=== PATIENT | female | born 1925 | race Caucasian/White ===

== ENCOUNTER 2016-04-30 10:45 | Inpatient (IN) | payer MEDICARE, MEDICAID ==
[~2016-04-30] VITALS: Ht 158.8 cm; Wt 104.1 kg
[2016-04-30] VITALS (15 sets, daily range): BP systolic 128–164; BP diastolic 46–77
[~2016-04-30 10:45] MED LIST: ALBU17AE3; ALBU8.5H2 IH; ALPR.25T PO; ALPR.5T PO; AMLO10TA82 PO; ASP81TEC PO; CARB15DR75 OU; CEPH500C PO; CITA20TA4 PO; CLOT15CR4 TP; DOXA1TAB PO; DXCC100C PO; ENLP10T PO; ESCT10T PO; FISH1CAP15 PO; FLC100T1 PO; FLUT1DIS26 IH; FRSM40T PO; HYDR118S10 PO; LEVO500T69 PO; MESA1.2T PO; MTP25TSR PO; MULT-963 PO; NF-ESOM40C PO; NFPRILOC40 PO; NITR-65 PO; NST15PW TOP; OMEG1CAP51 PO; OMEP40CA36 PO; ONDA-42 SL; OXYC-272 PO; PHEN200T27 PO; PNT40TEC PO; POLY17PO23 PO; POTA10TA6 PO; PROCRIT SC; RT-ALBUINH IH; SCR1T1 PO; SIMV40TA2 PO; SNN187T PO; SULF1TAB23 PO; SULF1TAB38 PO; TRAZODONE PO; TRM50T PO; TRZ50T PO; WARF4TAB PO; WRF2T PO; WRF5T PO
--- OUTSIDE RECORDS SUMMARY | 2016-04-30 10:53 | XMS REPORT | Continuity of Care Document ---
Author Author [facility] Organization [facility] Address Unknown Phone Unavailable Care Team Providers Care Traffic Circuit Engineer Name Role Phone WILLARD LOPEZ DO PCP Insurance Providers Payer Name Policy Number Subscriber Name Relationship [employer] Medicare [id number] Be Bill 18 Self / Same As Patient [facility] [id number] Be Bill 18 Self / Same As Patient Advance Directives Directive Response Recorded Date/Time Advance Directives No 08/05/13 9:37am Health Care Power of Fishing Accessories Maker No 08/05/13 9:37am Organ Donor No 08/05/13 9:37am Problems No known problems or medical conditions. Medications Medication Dose Route Sig Days/Qty Instructions Order Date Discontinued Date Status Aspirin 81 Mg PO DAILY 11/07/09 10/22/10 Discontinued Furosemide 40 Mg PO DAILY 11/07/09 Active Amlodipine Besylate (Norvasc 10 Mg) 10 Mg PO DAILY 11/07/09 Discontinued Esomeprazole Magnesium 40 Mg PO DAILY 11/07/09 10/22/10 Discontinued Escitalopram Oxalate 10 Mg PO DAILY 11/07/09 09/01/10 Discontinued Potassium Chloride 10 Meq PO EVERY OTHER DAY 11/07/09 10/24/11 Discontinued Sinclair-3 Fatty Acids/Fish Oil 1,000 Mg PO DAILY 11/07/09 11/30/12 Discontinued Salmeterol Xinafoate/Fluticasone 1 Puff IH GIVE EVERY 12 HRS ON SCHEDULE 11/07/09 10/24/11 Discontinued Tramadol HCl 50 Mg PO THREE TIMES A DAY 11/07/09 01/14/13 Discontinued Alprazolam 0.5 Mg PO TWICE A DAY 11/07/09 01/04/13 Discontinued Trazodone HCl 50 Mg PO BEDTIME 11/07/09 09/01/10 Discontinued Nitrofurantoin Macrocrystals 1 Each PO TWICE A DAY 14 Qty 04/07/1011/05 Discontinued Phenazopyridine HCl 1 Each PO TID PRN 10 Qty 04/07/10 09/01/10 Discontinued Trazodone HCl 50 Mg PO HS PRN 09/01/10 10/22/10 Discontinued Carboxymethylcellulose Sodium 1 Drop OU NEEDED for dry eyes/burning 09/02/10 10/24/11 Discontinued Fluconazole 1 Each PO DAILY 14 Days 09/06/10 10/12/10 Discontinued Trimethoprim/Sulfamethoxazole 1 Ea PO TWICE A DAY 10 Days 09/06/1013/03 Discontinued Omeprazole 40 Mg PO DAILY 09/06/10 10/22/10 Discontinued Trimethoprim/Sulfamethoxazole 1 Ea PO TWICE A DAY 09/08/10 09/10/10 Discontinued Levofloxacin 1 Each PO DAILY 5 Qty 09/10/10 10/12/10 Discontinued Simvastatin 40 Mg PO BEDTIME 10/12/10 Active Escitalopram Oxalate 10 Mg PO DAILY 10/12/10 11/30/12 Discontinued Enalapril Maleate 10 Mg PO TWICE A DAY 10/22/10 10/24/11 Discontinued [Procrit] 14,[address] MIX'S OFFICE 10/22/10 01/04/11 Discontinued Metoprolol Succinate 1 Each PO DAILY 10/22/10 01/08/11 Discontinued Pantoprazole Sodium 1 Tab PO TWICE A DAY 10/22/10 01/04/11 Discontinued Mesalamine 1.2 Gm PO DAILY 10/22/10 01/04/11 Discontinued Albuterol 2 Puff THREE TIMES A DAY 1 Qty 10/22/10 10/24/11 Discontinued Omeprazole 40 Mg PO DAILY 01/04/11 10/24/11 Discontinued Amlodipine Besylate (Norvasc 10 Mg) 10 Mg PO DAILY 01/04/11 Active Sulfamethoxazole/Trimethoprim 1 Tab PO TWICE A DAY TWICE A DAY FOR 3 WEEKS 01/08/11 10/24/11 Discontinued [Trazodone] 50 Mg PO BEDTIME 10/24/11 01/04/13 Discontinued Hydrocodone Bit/Acetaminophen 1 Each PO NEEDED 06/30/12 01/04/13 Discontinued Doxazosin Mesylate 1 Mg PO TWICE A DAY 06/30/12 Active Warfarin Sodium 4 Mg PO DAILY@18 06/30/12 01/04/13 Discontinued Multivitamin 1 Tab PO 06/30/12 01/04/13 Discontinued Polyethylene Glycol 17 Gm PO DAILY PRN PRN CONSTIPATION 06/30/12 Active Senna 8.6 Mg PO TWICE A DAY 06/30/12 11/30/12 Discontinued Cephalexin Monohydrate (Keflex) 1 Each PO THREE TIMES A DAY 7 Days 09/0701/04/13 Discontinued Albuterol Sulfate 2 Puff IH THREE TIMES A DAY 01/04/13 01/04/13 Discontinued Fish Oil/Dha/Epa 1,200 Mg PO DAILY 01/04/13 Active Albuterol 2 Puff IH THREE TIMES A DAY 01/04/13 Active Clotrimazole/Betamet Diprop TP TWICE A DAY PRN APPLY TO AFFECTED AREA( S) TWICE DAILY 01/04/13 Active Nystatin 0 TOP THREE TIMES A DAY 01/04/13 Active Omeprazole 40 Mg PO DAILY 01/04/13 Active Alprazolam 0.25 Mg PO TWICE A DAY PRN NEEDED FOR TREMORS 01/04/13 Active Warfarin Sodium PO DIRECTED 01/04/13 01/14/13 Discontinued Trazodone HCl 50 Mg PO BEDTIME 01/04/13 Active Citalopram Hydrobromide 20 Mg PO DAILY 01/04/13 Active Doxycycline Hyclate 100 Mg PO TWICE A DAY 10 Qty 01/14/13 Active Warfarin Sodium 1 Each PO DAILY 5 MG PO DAILY AT 1800. 01/14/13 Active Oxycodone Hcl/Acetaminophen 1 Tab PO EVERY 8HRS PRN 40 Qty 01/14/13 Active Ondansetron Hcl 4 Mg SL EVERY 4HRS 5 Qty 08/05/13 Active Nitrofurantoin Macrocrystals 1 Each PO TWICE A DAY 20 Qty FOR INFECTION 08/05/13 Active Social History Social History Problem Response Recorded Date/Time Alcohol Use Denies Use 08/05/2013 9:37am Recreational Drug Use No 08/05/2013 9:37am Recent Foreign Travel No 08/05/2013 9:37am Recent Infectious Disease Exposure No 08/05/2013 9:37am Sexually Transmitted Disease No 08/05/2013 9:37am Hospital Discharge Instructions No hospital discharge instructions. Plan of Care No plan of care. Functional Status No functional status results. Allergies, Adverse Reactions, Alerts Allergen Type Severity Reaction Status Last Updated No Known Drug Allergies Active 04/07/10 Immunizations Name Given Type Date of Pneumonia Vaccine 12/28/07 Historical Date of Influenza Vaccine 12/28/11 Historical Vital Signs No known vital signs results. Results Test Source Date Result Interp. Ref. Range Comments Absolute Reticulocyte Count October 18, 2010 5:36am 51 10^3/uL N 22-82 PATHOLOGY REVIEW OF THE PERIPHERAL SMEAR HAS BEEN ORDERED BYTHE PATIENT'S PHYSICIAN. PLEASE TAKE THE CBC, MANUAL DIFF, RETIC RESULTS, SMEAR AND ANY PERTINENT HISTORY TO THE PATHOLOGIST FOR REVIEW. Activated Partial Thromboplast Time August 05, 2013 10:10am 34 SEC N 24- 35 Alanine Aminotransferase (ALT/SGPT) October 08, 2013 9:44am 21 U/L L 30-65 Albumin October 08, 2013 9:44am 3.2 G/DL L 3.4-5.0 Alkaline Phosphatase October 08, 2013 9:44am 96 U/L N 50-136 Amylase Level August 05, 2013 10:10am 62 U/L N 25-115 Anisocytosis October 18, 2010 5:36am MODERATE - PATHOLOGY REVIEW OF THE PERIPHERAL SMEAR HAS BEEN ORDERED BYTHE PATIENT'S PHYSICIAN. PLEASE TAKE THE CBC, MANUAL DIFF, RETIC RESULTS, SMEAR AND ANY PERTINENT HISTORY TO THE PATHOLOGIST FOR REVIEW. Anti-Neutrophil Cytoplasmic Ab June 21, 2011 12:47pm <1:20 - This test was developed and its performance characteristicsdetermined by [facility]. It has not been cleared or approved by the U.S. Food and Drug Administration. The FDA has determined that such clearance or approval is not necessary. This test is used for clinical puposes. It should not be regarded as investigational or for research. This laboratory is certified under the Clinical Laboratory Improvement Amendments of 1988 (CLIA) as qualified to perform high complexity clinical testing. 05/31/1999 Anti-Nuclear Antibody Screen June 21, 2011 12:47pm <1:80 - Interpretative data is available online at:[email or web address] Enter Test Number:[id number] INTERPRETIVE DATA IF GIANCARLO SCREEN POSITIVE TITER AND PATTERN WILL FOLLOW. NORMAL RANGE FOR CHILDREN AGE 0 - 12 <1:20 NORMAL RANGE FOR ADULTS AGE 13 - 150 <1:80 Aspartate Amino Transf (AST/SGOT) October 08, 2013 9:44am 18 U/L N 15-37 Atypical Lymphocytes October 18, 2010 5:36am 10 % - PATHOLOGY REVIEW OF THE PERIPHERAL SMEAR HAS BEEN ORDERED BYTHE PATIENT'S PHYSICIAN. PLEASE TAKE THE CBC, MANUAL DIFF, RETIC RESULTS, SMEAR AND ANY PERTINENT HISTORY TO THE PATHOLOGIST FOR REVIEW. B-Type Natriuretic Peptide June 19, 2012 5:30am 175.0 PG/ML H 5.0- 100.0 BUN/Creatinine Ratio October 08, 2013 9:44am 19 - Band Neutrophils October 18, 2010 5:36am 0 % - PATHOLOGY REVIEW OF THE PERIPHERAL SMEAR HAS BEEN ORDERED BYTHE PATIENT'S PHYSICIAN. PLEASE TAKE THE CBC, MANUAL DIFF, RETIC RESULTS, SMEAR AND ANY PERTINENT HISTORY TO THE PATHOLOGIST FOR REVIEW. Basophils # (Auto) August 05, 2013 10:10am 0.1 10^3/uL N 0.0-0.1 Basophils % (Manual) September 02, 2010 7:05am 0 % - Basophils (%) (Auto) August 05, 2013 10:10am 1 % N 0-10 Blood Urea Nitrogen October 08, 2013 9:44am 34 MG/DL H 7-18 Raj Cells October 18, 2010 5:36am MODERATE - PATHOLOGY REVIEW OF THE PERIPHERAL SMEAR HAS BEEN ORDERED BYTHE PATIENT'S PHYSICIAN. PLEASE TAKE THE CBC, MANUAL DIFF, RETIC RESULTS, SMEAR AND ANY PERTINENT HISTORY TO THE PATHOLOGIST FOR REVIEW. Calcium Level October 08, 2013 9:44am 8.7 MG/DL N 8.5-10.1 Carbon Dioxide Level October 08, 2013 9:44am 28 MMOL/L N 21-32 Chloride Level October 08, 2013 9:44am 101 MMOL/L N 101-110 Cholesterol Level October 08, 2013 9:44am 172 MG/DL N -200 Creatine Kinase MB October 12, 2010 12:12am 0.6 NG/ML N 0.0-3.6 Creatinine October 08, 2013 9:44am 1.8 MG/DL H 0.6-1.3 Direct Bilirubin December 26, 2009 10:10am 0.1 MG/DL N 0.0-0.30 Eosinophils # (Auto) August 05, 2013 10:10am 0.0 10^3/uL N 0.0-0.3 Eosinophils % (Manual) October 18, 2010 5:36am 3 % - PATHOLOGY REVIEW OF THE PERIPHERAL SMEAR HAS BEEN ORDERED BYTHE PATIENT'S PHYSICIAN. PLEASE TAKE THE CBC, MANUAL DIFF, RETIC RESULTS, SMEAR AND ANY PERTINENT HISTORY TO THE PATHOLOGIST FOR REVIEW. Eosinophils (%) (Auto) August 05, 2013 10:10am 0 % N 0-10 Erythrocyte Sedimentation Rate December 16, 2008 11:43am 66 MM/HR H 0-30 PT IN OUTPT AREA-FAX TO [phone] Ferritin November 07, 2010 4:15pm 88 NG/ML - Free Thyroxine June 21, 2011 12:47pm 0.95 NG/DL N 0.59-1.17 Glucose Level October 08, 2013 9:44am 97 MG/DL N 74-106 HDL Cholesterol October 08, 2013 9:44am 56 MG/DL N 35-60 HIV (1&2) Antibody June 21, 2011 12:47pm NR - Hematocrit August 05, 2013 10:10am 34 % L 35-52 Hemoglobin August 05, 2013 10:10am 11.7 G/DL N 11.5-16.0 Hypochromasia October 18, 2010 5:36am MODERATE - PATHOLOGY REVIEW OF THE PERIPHERAL SMEAR HAS BEEN ORDERED BYTHE PATIENT'S PHYSICIAN. PLEASE TAKE THE CBC, MANUAL DIFF, RETIC RESULTS, SMEAR AND ANY PERTINENT HISTORY TO THE PATHOLOGIST FOR REVIEW. Immunoglobulin E June 21, 2011 12:47pm 25.2 IU/ML - IGE INTERPRETATION GEOMETRIC MEAN +1 SD +2 SD 51-80 YEARS 12 IU/ML 48 IU/ML 197 IU/ML IT HAS BEEN REPORTED THAT 1% OF HEALTHY ADULTS AND 63% OF ALLERGIC ADULTS HAVE TOTAL CIRCULATING IGE LEVELS GREATER THAN 100 IU/ML AND THAT 65% OF HEALTHY ADULTS AND ONLY 2% OF ALLERGIC ADULTS HAVE TOTAL CIRCULATING IGE LEVELS BELOW 20 IU/ML. ALSO REPORTED IS THAT PATIENTS WITH IGE LEVELS GREATER THAN ONE STANDARD DEVIATION ABOVE THE GEOMETRIC MEAN HAVE A HIGH PROBABILITY OF ALLERGIC DISAESE AND IGE LEVELS GREATER THAN TWO STANDARD DEVIATIONS ABOVE THE GEOMETRIC MEAN ARE VIRTUALLY DIAGNOSTIC FOR ATOPY (CLIN REV ALLERGY 6: 93, 1988). Indirect Bilirubin December 26, 2009 10:10am 0.2 MG/DL - Iron Level November 07, 2010 4:15pm 56 UG/DL - LDL Cholesterol October 08, 2013 9:44am 102 MG/DL N 0-129 Lipase August 05, 2013 10:10am 159 U/L N 73-393 Lymphocytes # (Auto) August 05, 2013 10:10am 2.1 X 10^3 N 1.0-4.0 Lymphocytes % (Manual) October 18, 2010 5:36am 16 % - PATHOLOGY REVIEW OF THE PERIPHERAL SMEAR HAS BEEN ORDERED BYTHE PATIENT'S PHYSICIAN. PLEASE TAKE THE CBC, MANUAL DIFF, RETIC RESULTS, SMEAR AND ANY PERTINENT HISTORY TO THE PATHOLOGIST FOR REVIEW. Lymphocytes (%) (Auto) August 05, 2013 10:10am 19 % N 12-44 Magnesium Level June 12, 2012 6:05am 2.7 MG/DL H 1.8-2.4 Mean Corpuscular Hemoglobin August 05, 2013 10:10am 28 PG N 25-34 Mean Corpuscular Hemoglobin Concent August 05, 2013 10:10am 34 G/DL N 32- 36 Mean Corpuscular Volume August 05, 2013 10:10am 82 FL N 80-99 Mean Platelet Volume August 05, 2013 10:10am 8.8 FL N 7.4-10.4 Microcytosis September 01, 2010 6:56pm SLIGHT - Monocytes # (Auto) August 05, 2013 10:10am 1.0 X 10^3 N 0.0-1.0 Monocytes % (Manual) October 18, 2010 5:36am 11 % - PATHOLOGY REVIEW OF THE PERIPHERAL SMEAR HAS BEEN ORDERED BYTHE PATIENT'S PHYSICIAN. PLEASE TAKE THE CBC, MANUAL DIFF, RETIC RESULTS, SMEAR AND ANY PERTINENT HISTORY TO THE PATHOLOGIST FOR REVIEW. Monocytes (%) (Auto) August 05, 2013 10:10am 9 % N 0-12 Myoglobin September 26, 2005 10:43pm 32 UG/L N 10-92 Has specimen been collected/obtained? Y Neutrophils # (Auto) August 05, 2013 10:10am 8.0 X 10^3 H 1.8-7.8 Neutrophils % (Manual) October 18, 2010 5:36am 60 % - PATHOLOGY REVIEW OF THE PERIPHERAL SMEAR HAS BEEN ORDERED BYTHE PATIENT'S PHYSICIAN. PLEASE TAKE THE CBC, MANUAL DIFF, RETIC RESULTS, SMEAR AND ANY PERTINENT HISTORY TO THE PATHOLOGIST FOR REVIEW. Neutrophils (%) (Auto) August 05, 2013 10:10am 72 % N 42-75 Nucleated Red Blood Cells September 02, 2010 7:05am 1 - Percent Reticulocyte Count October 18, 2010 5:36am 1.34 % N 0.50-2.40 PATHOLOGY REVIEW OF THE PERIPHERAL SMEAR HAS BEEN ORDERED BYTHE PATIENT'S PHYSICIAN. PLEASE TAKE THE CBC, MANUAL DIFF, RETIC RESULTS, SMEAR AND ANY PERTINENT HISTORY TO THE PATHOLOGIST FOR REVIEW. Platelet Count August 05, 2013 10:10am 289 10^3/uL N 130-400 Poikilocytosis October 18, 2010 5:36am MODERATE - PATHOLOGY REVIEW OF THE PERIPHERAL SMEAR HAS BEEN ORDERED BYTHE PATIENT'S PHYSICIAN. PLEASE TAKE THE CBC, MANUAL DIFF, RETIC RESULTS, SMEAR AND ANY PERTINENT HISTORY TO THE PATHOLOGIST FOR REVIEW. Potassium Level October 08, 2013 9:44am 4.5 MMOL/L N 3.6-5.0 Prothromb Time International Ratio July 21, 2012 12:50pm 2.0 H 0.8-1.4 INTERPRETIVE DATASUGGESTED THERAPEUTIC RANGE FOR INR'S: VENOUS THROMBOSIS, PULMONARY EMBOLISM, OR PREVENTION OF SYSTEMIC EMBOLISM (EG. IN ATRIAL FIBRILLATION): 2.0 - 3.0 MECHANICAL PROSTHETIC HEART VALVES: 2.5 - 3.5* *NOTE: INR'S UP TO 4.5 MAY BE NECESSARY IN SELECTED GROUPS OF HIGH RISK PATIENTS. [employer]LE[employer] OF CHEST PHYSICIANS CONSENSUS CONFERENCE ON ANTITHROMBOTIC THERAPY (2000). Prothrombin Time November 09, 2013 11:12am 25.1 SEC H 12.2-14.7 WATER RESOURCES ENGINEER Antibody June 21, 2011 12:47pm <20 - Red Blood Count August 05, 2013 10:10am 4.16 10^6/uL L 4.35-5.85 Red Cell Distribution Width August 05, 2013 10:10am 14.7 % H 10.0-14.5 Rheumatoid Factor June 21, 2011 12:47pm NEGATIVE - Saccharomyces cerevisiae IgA Ab November 07, 2010 4:15pm 11.5 U - Reference Range (ASCA IGA AB): <=20.0 NEGATIVE 20.1-24.9 EQUIVOCAL >=25.0 POSITIVE THIS TEST WAS PERFORMED AT [facility] [id number] [place] [id number] Arnol BAÑUELOS Saccharomyces cerevisiae IgG Ab November 07, 2010 4:15pm 4.7 U - Reference Range (ASCA IGG AB): <=20.0 NEGATIVE 20.1-29.9 EQUIVOCAL >=30.0 POSITIVE THIS TEST WAS PERFORMED AT [facility] [id number] [place] [phone] Arnol BAÑUELOS Scl-70 (Scleroderma) Antibody June 21, 2011 12:47pm <20 EU/ML - Interpretative data is available online at:[email or web address] Enter Test Number:[id number] Sodium Level October 08, 2013 9:44am 135 MMOL/L N 135-145 Target Cells October 18, 2010 5:36am SLIGHT - PATHOLOGY REVIEW OF THE PERIPHERAL SMEAR HAS BEEN ORDERED BYTHE PATIENT'S PHYSICIAN. PLEASE TAKE THE CBC, MANUAL DIFF, RETIC RESULTS, SMEAR AND ANY PERTINENT HISTORY TO THE PATHOLOGIST FOR REVIEW. Thyroid Stimulating Hormone (TSH) June 11, 2012 5:49am 2.69 UIU/ML N 0.34-5.60 Total Bilirubin October 08, 2013 9:44am 0.3 MG/DL N 0.0-1.0 Total Iron Binding Capacity November 07, 2010 4:15pm 341 UG/DL - Total Protein October 08, 2013 9:44am 6.9 G/DL N 6.4-8.2 Transferrin % Saturation November 07, 2010 4:15pm 16 % - Triglycerides Level October 08, 2013 9:44am 71 MG/DL N 30.0-150.0 Troponin I October 12, 2010 3:10pm 0.20 MG/ML H 0.00-0.10 Urine Bacteria August 05, 2013 10:05am TRACE /HPF - Has specimen been collected/obtained? YSpecimen Description CLEAN CATCH Urine Bilirubin August 05, 2013 10:05am NEGATIVE - Has specimen been collected/obtained? YSpecimen Description CLEAN CATCH Urine Casts August 05, 2013 10:05am NONE /LPF - Has specimen been collected/obtained? YSpecimen Description CLEAN CATCH Urine Clarity August 05, 2013 10:05am CLEAR - Has specimen been collected/obtained? YSpecimen Description CLEAN CATCH Urine Color August 05, 2013 10:05am YELLOW - Has specimen been collected/obtained? YSpecimen Description CLEAN CATCH Urine Crystals August 05, 2013 10:05am NONE /LPF - Has specimen been collected/obtained? YSpecimen Description CLEAN CATCH Urine Culture Indicated August 05, 2013 10:05am NO - Has specimen been collected/obtained? YSpecimen Description CLEAN CATCH Urine Glucose (UA) August 05, 2013 10:05am NEGATIVE - Has specimen been collected/obtained? YSpecimen Description CLEAN CATCH Urine Hyaline Casts November 07, 2010 4:15pm 5-10 H - Urine Ketones August 05, 2013 10:05am NEGATIVE - Has specimen been collected/obtained? YSpecimen Description CLEAN CATCH Urine Leukocyte Esterase August 05, 2013 10:05am 1+ H - Has specimen been collected/obtained? YSpecimen Description CLEAN CATCH Urine Mucus August 05, 2013 10:05am SMALL /LPF H - Has specimen been collected/obtained? YSpecimen Description CLEAN CATCH Urine Nitrate April 05, 2007 6:36pm Negative - Has specimen been collected/obtained? YSpecimen Description CLEAN CATCH Urine Nitrite August 05, 2013 10:05am NEGATIVE - Has specimen been collected/obtained? YSpecimen Description CLEAN CATCH Urine Other October 18, 2010 2:45pm 2-5 TRANS EPIS - Has specimen been collected/obtained? Y Urine Protein August 05, 2013 10:05am 3+ H - Has specimen been collected /obtained? YSpecimen Description CLEAN CATCH Urine RBC August 05, 2013 10:05am 2-5 /HPF H - Has specimen been collected/obtained? YSpecimen Description CLEAN CATCH Urine Renal Epithelial Cells October 18, 2010 2:45pm Not Performed - Urine Specific [place] August 05, 2013 10:05am 1.010 L - Has specimen been collected/obtained? YSpecimen Description CLEAN CATCH Urine Squamous Epithelial Cells August 05, 2013 10:05am 0-2 /HPF - Has specimen been collected/obtained? YSpecimen Description CLEAN CATCH Urine Urobilinogen August 05, 2013 10:05am NORMAL MG/DL - Has specimen been collected/obtained? YSpecimen Description CLEAN CATCH Urine WBC August 05, 2013 10:05am 2-5 /HPF - Has specimen been collected/obtained? YSpecimen Description CLEAN CATCH Urine pH August 05, 2013 10:05am 7 - Has specimen been collected/ obtained? YSpecimen Description CLEAN CATCH VLDL Cholesterol October 08, 2013 9:44am 14 MG/DL N 5-40 White Blood Count August 05, 2013 10:10am 11.1 10^3/uL H 4.3-11.0 Pathology Consult Specimen September 26, 2005 10:43pm See report - Has specimen been collected/obtained? Y Glucometer October 14, 2010 6:30am 104 MG/DL N 70-110 Lab Scanned Report October 23, 2010 11:10am Transfusion Reaction Form [id number] - Estimat Glomerular Filtration Rate October 08, 2013 9:44am 27 - GFR INTERPRETIVE DATA UNITS FOR ESTIMATED GFR (eGFR): mL/min/1.73 M2 REFERENCE RANGE FOR ESTIMATED GFR (eGFR) eGFR NORMAL eGFR >60 MODERATELY DECREASED eGFR 30-59 SEVERLY DECREASED eGFR 15-29 KIDNEY FAILURE <15 (OR DIALYSIS) Total Protein (PEP) October 17, 2010 5:55am 5.6 L GM/DL - Creatine Kinase October 12, 2010 3:10pm 24 U/L N 1-159 Protein Electrophoresis Note October 17, 2010 5:55am [id number] - Free [place] Light Chains, Quant October 17, 2010 5:55am 39.20 H MG/L - Free [place]ambda Light Chains, Quant October 17, 2010 5:55am 31.79 H MG/L - Free [place]/Lambda Light Chain Ratio October 17, 2010 5:55am 1.23 RATIO - Protein Electrophoresis Pathologist October 17, 2010 5:55am SEE PATH REPORT - Cardiac Panel Pathologist Review October 12, 2010 12:12am SEE CARDIAC PATH REV - Comments to Wastewater Treatment Plant Instructor: USE BLOOD FROM EARLY AM Stool Occult Blood Immunoassay June 21, 2012 9:30am NEGATIVE - Has specimen been collected/obtained? Y Urine RBC (Auto) August 05, 2013 10:05am 1+ H - Has specimen been collected/obtained? YSpecimen Description CLEAN CATCH INR Comment November 09, 2013 11:12am 2.4 H 0.8-1.4 INTERPRETIVE DATASUGGESTED THERAPEUTIC RANGE FOR INR'S: VENOUS THROMBOSIS, PULMONARY EMBOLISM, OR PREVENTION OF SYSTEMIC EMBOLISM (EG. IN ATRIAL FIBRILLATION): 2.0 - 3.0 MECHANICAL PROSTHETIC HEART VALVES: 2.5 - 3.5* *NOTE: INR'S UP TO 4.5 MAY BE NECESSARY IN SELECTED GROUPS OF HIGH RISK PATIENTS. [employer] OF CHEST PHYSICIANS CONSENSUS CONFERENCE ON ANTITHROMBOTIC THERAPY (2000). Blood Culture Peripheral-Rt Forearm August 05, 2013 10:15am No growth MRSA Screen Nasal October 24, 2011 7:20am MRSA not isolated Urine Culture Urine-Clean Catch August 05, 2013 10:05am Procedures No known history of procedures. Encounters Encounter Location Date/Time Registered Clinic [facility] 12/22/13 8:03pm Discharged Recurring [facility] 11/09/13 11:07am
[2016-04-30 11:16] LABS: BASOPHILS % (AUTO) 0 % (0-10); EOSINOPHILS # (AUTO) 0.3 10^3/uL (0.0-0.3); EOSINOPHILS % (AUTO) 3 % (0-10); LYMPHOCYTES # (AUTO) 1.9 X 10^3 (1.0-4.0); LYMPHOCYTES % (AUTO) 18 % (12-44); MEAN CORPUSCULAR HEMOGLOBIN 27 PG (25-34); MEAN CORPUSCULAR HGB CONC 33 G/DL (32-36); MEAN CORPUSCULAR VOLUME 83 FL (80-99); MEAN PLATELET VOLUME 8.6 FL (7.4-10.4); MONOCYTES # (AUTO) 1.1 X 10^3 (0.0-1.0); MONOCYTES % (AUTO) 10 % (0-12); NEUTROPHILS # (AUTO) 7.2 X 10^3 (1.8-7.8); NEUTROPHILS % (AUTO) 69 % (42-75); PLATELET COUNT 354 10^3/uL (130-400); RED CELL DISTRIBUTION WIDTH 15.9 % (10.0-14.5); WHITE BLOOD COUNT 10.4 10^3/uL (4.3-11.0)
--- NOTE | 2016-04-30 11:25 | Diagnostic Imaging Report ---
Portable upright radiograph of the chest. INDICATION: Cough and congestion. COMPARISON: 10/19/2014. FINDINGS: The lungs demonstrate minimal vascular congestion with no focal infiltrate. The heart size is mildly enlarged. No effusion or pneumothorax. The mediastinum and chalo appear unremarkable. IMPRESSION: Cardiomegaly with minimal vascular congestion. Dictated by: Dictated on workstation # [id number]
[2016-04-30 11:30] LABS: INR 1.1 (0.8-1.4); PROTHROMBIN TIME PATIENT 13.4 SEC (12.2-14.7)
[2016-04-30 11:39] LABS: ALBUMIN 3.5 G/DL (3.2-4.5); BILIRUBIN,TOTAL 0.3 MG/DL (0.1-1.0); CALCIUM 8.5 MG/DL (8.5-10.1); CREATININE SERUM 1.6 MG/DL (0.60-1.30); TOTAL PROTEIN 6.8 G/DL (6.4-8.2)
[2016-04-30 11:57] LABS: BILIRUBIN,URINE NEGATIVE (NEGATIVE); KETONES,URINE NEGATIVE (NEGATIVE); LEUKOCYTE ESTERASE ,URINE 2+ (NEGATIVE); NITRITE,URINE NEGATIVE (NEGATIVE); PH,URINE 6 (5-9); PROTEIN,URINE 4+ (NEGATIVE); UROBILINOGEN,URINE NORMAL (NORMAL)
[2016-04-30] MEDS ORDERED: NS (IVPB) 250 ML IV ONE (12:09)
[2016-04-30] MEDS ORDERED: DILTIAZEM 25 MG/5 ML INJ (CARDIZEM) VIAL IVP ONE (12:15)
[2016-04-30] MEDS ORDERED: APIXABAN 2.5 MG (ELIQUIS) TABLET PO ONE (12:15)
[2016-04-30] MEDS ORDERED: DILTIAZEM DRIP 100 MG in SODIUM CHLORIDE (ADD-VANTAGE) 100 ML IV SCH (12:15)
--- NOTE | 2016-04-30 12:21 | ED Respiratory ---
General Chief Complaint: Cough/Cold/Flu Symptoms Stated Complaint: COUGH/FEVER WHEEZING Nursing Triage Note: PT SENT TO ED FROM DR DAI OFFICE TO R/O PNEUMONIA. PT REPORTS COUGH/CONGESTION AND MALAISE FOR SEVERAL DAYS. Source: patient, family Exam Limitations: no limitations History of Present Illness Time seen by provider: 11:40 Initial Comments Here with report of cough and congestion with shortness of breath for the last few days. Seen at Dr. Lopez's office today and sent here for further evaluation. Denies chest pain but does report cough and breathing problems. Does have recent history of bronchitis. No recent fever or chills. Timing/Duration: week, getting worse Severity: moderate Prior Episodes/Possible Cause: occasional episodes Modifying Factors: Worse With Activity, Improves With Albuterol Nebulizer Associated Symptoms: No chest pain/soreness, coughNo dizziness, No fever/ chills, nasal congestion shortness of breath wheezing Allergies and Home Medications Allergies Coded Allergies: No Known Drug Allergies (Unverified , 04/07/10) Home Medications Albuterol 8.5 Gm Hfa.aer.ad 2 PUFF IH TID (Reported) 2 PUFFS Alprazolam 0.25 Mg Tablet 0.25 MG PO BID PRN PRN (Reported) NEEDED FOR TREMORS Amlodipine Besylate 10 Mg Tablet 10 MG PO DAILY (Reported) Citalopram Hydrobromide 20 Mg Tablet 20 MG PO DAILY (Reported) Clotrimazole/Betamet Diprop 15 Gm Cream.gm. TP BID PRN PRN (Reported) APPLY TO AFFECTED AREA(S) TWICE DAILY NEEDED. Doxazosin Mesylate 1 Mg Tablet 1 MG PO BID (Reported) Doxycycline Hyclate 100 Mg Tab #10 100 MG PO BID (Reported) Fish Oil/Dha/Epa 1 Each Capsule 1,200 MG PO DAILY (Reported) Furosemide 40 Mg Tab 40 MG PO DAILY (Reported) Nitrofurantoin/Nitrofuran Mac 100 Mg Capsule #20 1 EACH PO BID FOR INFECTION Prescribed by: VÍCTOR ALDRIDGE on 08/05/13 1221 Nystatin 15 Gm Btl 0 TOP TID (Reported) APPLY THREE TIMES DAILY TO GROIN Omeprazole 40 Mg Capsule.dr 40 MG PO DAILY (Reported) Ondansetron Hcl 4 Mg Tab #5 4 MG SL Q4H FOR NAUSEA AND VOMITING Prescribed by: VÍCTOR ALDRIDGE on 08/05/13 1221 Oxycodone Hcl/Acetaminophen 1 Tab Tablet #40 1 TAB PO Q8H PRN PRN (Reported) Polyethylene Glycol 17 Gm Pack 17 GM PO DAILY PRN PRN (Reported) PRN CONSTIPATION Simvastatin 40 Mg Tablet 40 MG PO HS (Reported) Trazodone Hcl 50 Mg Tab 50 MG PO HS (Reported) Warfarin Sodium 5 Mg Tablet 1 EACH PO DAILY (Reported) 5 MG PO DAILY AT 1800. Constitutional: see HPINo chills, No fever EENTM: see HPI Respiratory: see HPI cough short of breath wheezing Cardiovascular: see HPINo chest pain, palpitations Gastrointestinal: No abdominal pain, No nausea, No vomiting Genitourinary: no symptoms reported Musculoskeletal: no symptoms reported Skin: no symptoms reported Psychiatric/Neurological: No Symptoms Reported All Other Systems Reviewed Negative Unless Noted: Yes Past Jtvumna-Fnvkcy-Mxvbbc Hx Patient Social History Alcohol Use: Denies Use Recreational Drug Use: No Smoking Status: Never a Smoker Former Smoker/When Quit: Apr 28, 2004 Recent Foreign Travel: No Contact w/Someone Who Travel: No Recent Infectious Disease Expo: No Recent Hopitalizations: Yes (UTI, ANEMIA) Physical Abuse Screen: No Sexual Abuse: No Immunizations Up To Date Date of Pneumonia Vaccine: Dec 28, 2007 Date of Influenza Vaccine: Dec 28, 2011 Surgeries HX Surgeries: Yes (RIGHT TOTAL HIP) Respiratory Hx Respiratory Disorders: Yes Respiratory Disorders: Asthma Cardiovascular Hx Cardiac Disorders: Yes Neurological Hx Neurological Disorders: Yes Reproductive System Hx Reproductive Disorders: Yes (CERVICAL CANCER WITH HYSTERECTOMY) Sexually Transmitted Disease: No Genitourinary Hx Genitourinary Disorders: Yes (URINARY RETENTION) Gastrointestinal Hx Gastrointestinal Disorders: No Musculoskeletal Hx Musculoskeletal Disorders: Yes (RIGHT TOTAL HIP, OSTEOARTHRITIS) Endocrine Hx Endocrine Disorders: No HEENT HX ENT Disorders: No Cancer Hx Cancer: Yes Cancer: Cervical Psychosocial Hx Psychiatric Problems: Yes Behavioral Health Disorders: Anxiety, Depression Integumentary HX Skin/Integumentary Disorder: No Blood Transfusions Hx Blood Disorders: Yes (Anemia) Family Medical History Significant Family History: No Pertinent Family Hx Physical Exam Vital Signs Vital Sign - Last 12Hours 04/30/16 11:10 Temp 98.7 Pulse 110 Resp 16 B/P 153/80 Pulse Ox 95 O2 Delivery Room Air Capillary Refill : Less Than 3 Seconds General Appearance: WD/WN no apparent distress HEENT: PERRL/EOMI pharynx normal Neck: full range of motion supple Respiratory: no respiratory distress no accessory muscle use crackles (5 basilar) wheezing other (coarse cough) Cardiovascular: no murmur tachycardia irregularly irregular Gastrointestinal: non tender soft Extremities: non-tender normal inspection pedal edema (bilateral 1-2+ to mid tibia) Neurologic/Psychiatric: alert normal mood/affect Skin: warm/dry Progress/Results/Core Measures Results/Orders Lab Results Laboratory Tests Test 04/30/16 11:05 04/30/16 11:46 04/30/16 12:15 Range/Units Activated Partial Thromboplast Time 37 H 24-35 SEC Alanine Aminotransferase (ALT/SGPT) 12 0-55 U/L Albumin 3.5 3.2-4.5 G/DL Alkaline Phosphatase 69 40-136 U/L Anion Gap 10 5-14 MMOL/L Aspartate Amino Transf (AST/SGOT) 19 5-34 U/L BUN/Creatinine Ratio 19 Basophils # (Auto) 0.0 0.0-0.1 10^3/uL Basophils (%) (Auto) 0 0-10 % Blood Urea Nitrogen 31 H 7-18 MG/DL Calcium Level 8.5 8.5-10.1 MG/DL Carbon Dioxide Level 24 21-32 MMOL/L Chloride Level 104 98-107 MMOL/L Creatinine 1.60 H 0.60-1.30 MG/DL Eosinophils # (Auto) 0.3 0.0-0.3 10^3/uL Eosinophils (%) (Auto) 3 0-10 % Estimat Glomerular Filtration Rate 30 Glucose Level 101 70-105 MG/DL Hematocrit 33 L 35-52 % Hemoglobin 10.9 L 11.5-16.0 G/DL INR Comment 1.1 0.8-1.4 Lactic Acid Level 1.1 0.5-2.0 MMOL/L Lymphocytes # (Auto) 1.9 1.0-4.0 X 10^3 Lymphocytes (%) (Auto) 18 12-44 % Mean Corpuscular Hemoglobin 27 25-34 PG Mean Corpuscular Hemoglobin Concent 33 32-36 G/DL Mean Corpuscular Volume 83 80-99 FL Mean Platelet Volume 8.6 7.4-10.4 FL Monocytes # (Auto) 1.1 H 0.0-1.0 X 10^3 Monocytes (%) (Auto) 10 0-12 % Neutrophils # (Auto) 7.2 1.8-7.8 X 10^3 Neutrophils (%) (Auto) 69 42-75 % Platelet Count 354 130-400 10^3/uL Potassium Level 5.0 3.6-5.0 MMOL/L Prothrombin Time 13.4 12.2-14.7 SEC Red Blood Count 4.00 L 4.35-5.85 10^6/uL Red Cell Distribution Width 15.9 H 10.0-14.5 % Sodium Level 138 135-145 MMOL/L Total Bilirubin 0.3 0.1-1.0 MG/DL Total Protein 6.8 6.4-8.2 G/DL White Blood Count 10.4 4.3-11.0 10^3/uL Urine Bacteria TRACE /HPF Urine Bilirubin NEGATIVE NEGATIVE Urine Casts PRESENT /LPF Urine Clarity CLEAR Urine Color YELLOW Urine Crystals NONE /LPF Urine Culture Indicated YES Urine Glucose (UA) NEGATIVE NEGATIVE Urine Hyaline Casts 2-5 H /LPF Urine Ketones NEGATIVE NEGATIVE Urine Leukocyte Esterase 2+ H NEGATIVE Urine Mucus NEGATIVE /LPF Urine Nitrite NEGATIVE NEGATIVE Urine Protein 4+ NEGATIVE Urine RBC NONE /HPF Urine RBC (Auto) 1+ H NEGATIVE Urine Specific [place] 1.015 L 1.016-1.022 Urine Squamous Epithelial Cells 5-10 /HPF Urine Urobilinogen NORMAL NORMAL MG/DL Urine WBC 10-25 H /HPF Urine pH 6 5-9 My Orders Orders-SADIE GOODMAN MD Cbc With Automated Diff (04/30/16 10:51) Comprehensive Metabolic Panel (04/30/16 10:51) Lactic Acid Analyzer (04/30/16 10:51) Blood Culture (04/30/16 10:51) Sputum Culture (04/30/16 10:51) Ua Culture If Indicated (04/30/16 10:51) Protime With Inr (04/30/16 10:51) Partial Thromboplastin Time (04/30/16 10:51) Chest 1 View, Ap/Pa Only (04/30/16 10:51) O2 (04/30/16 10:51) Saline Lock/Iv-Start (04/30/16 10:51) Vital Signs Adult Sepsis Patie Q1HR (04/30/16 10:51) Urine Culture (04/30/16 11:46) BNP (04/30/16 12:08) Ns (Ivpb) (Sodium Chloride 0.9%) (04/30/16 12:09) Sodium Chloride (Ad... W/Diltiazem Drip (04/30/16 12:15) Diltiazem Injection (Cardizem Injection) (04/30/16 12:15) Apixaban Tablet (Eliquis Tablet) (04/30/16 12:15) Ceftriaxone Injection (Rocephin Injectio (04/30/16 12:30) Vital Signs/I&O Vital Sign - Last 12Hours 04/30/16 04/30/16 11:10 11:10 Temp 98.7 Pulse 110 Resp 16 B/P 153/80 Pulse Ox 95 O2 Delivery Room Air Room Air Blood Pressure Mean: 104 Progress Note : Progress Note Seen and evaluated. IV, labs, UA, EKG and chest x-ray ordered. Monitor patient. A. fib with RVR noted on EKG. Cardizem 10 mg IV and follow-up 10 mg IV drip initiated. I did discuss the case with Dr. Lopez at 1210 and he accepts patient for admission, inpatient status. Discussed case with Dr. Horn who accepts patient for admission in observation status. 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 Eliquis 2.5 mg by mouth given. Rocephin 1 g IV given for question of UTI. No indication of severe sepsis and no indication of requirement of high volume fluid resuscitation. Patient does have the A. fib with RVR. There is not an elevation of white count and patient is afebrile. ECG Initial ECG Impression Date: Apr 30, 2016 Initial ECG Impression Time: 11:07 Initial ECG Rate: 124 Initial ECG Rhythm: A Fib/Flutter Comment Atrial fibrillation with left ventricular hypertrophy. No evidence of ST elevation OK. Normal axis. Change from previous of 06/26/12. Interpreted by me. Diagnostic Imaging Diagonstic Imaging: Xray Plain Films/CT/US/NM/MRI: chest Comments NAME: MARGI BILL MED REC#: [id number] PT STATUS: REG ER : 1925 PHYSICIAN: SADIE GOODMAN MD ADMIT DATE: 04/30/16/ER Signed Date of Exam: 04/30/16 CHEST 1 VIEW, AP/PA ONLY Portable upright radiograph of the chest. INDICATION: Cough and congestion. COMPARISON: 10/19/2014. FINDINGS: The lungs demonstrate minimal vascular congestion with no focal infiltrate. The heart size is mildly enlarged. No effusion or pneumothorax. The mediastinum and chalo appear unremarkable. IMPRESSION: Cardiomegaly with minimal vascular congestion. Dictated by: Dictated on workstation # [id number] Dict: 04/30/16 1122 Trans: 04/30/16 1128 SILVER [id number] Interpreted by: ALLEGRA MCINTOSH MD Electronically signed by:ALLEGRA MCINTOSH MD 04/30/16 1130 Departure Communication Time/Spoke to Admitting Phy: 12:10 Time/Spoke to Consulting Physi: 12:15 Impression Impression: Primary Impression: Atrial fibrillation with rapid ventricular response Additional Impressions: Bronchitis UTI (urinary tract infection) Qualified Code: N30.00 - Acute cystitis without hematuria Disposition: ADMITTED INPATIENT Condition: Stable Decision to Admit Reason: Admit from ER (General) Decision to Admit/Date: Apr 30, 2016 Time/Decision to Admit Time: 12:31 Departure-Patient Inst. Referrals: WILLARD LOPEZ DO (PCP/Family) Primary Care Physician SADIE GOODMAN MD Apr 30, 2016 12:21
[2016-04-30] MEDS ORDERED: cefTRIAXone INJECTION 1,000 MG in NORMAL SALINE (BAXTER MINI) 50 ML IV ONE (12:30)
[2016-04-30] MEDS: DILTIAZEM DRIP 100 MG/NS 100 ML IV SCH ×4 (15:30→19:37)
[2016-04-30] MEDS ORDERED: CATHETER FLUSH 10 ML SYR IV PRN (15:30)
[2016-04-30] MEDS ORDERED: RT-ALBUTEROL SULF 2.5 MG/3 ML PRE-MIX VIAL INH PRN (15:30)
[2016-04-30] MEDS ORDERED: RT-ALBUTEROL SULF 2.5 MG/3 ML PRE-MIX VIAL INH SCH (15:30)
[2016-04-30] MEDS ORDERED: FURO40TA4 PO (16:00)
[2016-04-30] MEDS ORDERED: TRAM50TA2 PO (16:01)
[2016-04-30] MEDS ORDERED: APIX2.5T PO (16:01)
[2016-04-30] MEDS ORDERED: TRAZ-28 PO (16:01)
[2016-04-30] MEDS ORDERED: LORA10TA7 PO (16:01)
[2016-04-30] MEDS ORDERED: OMEP40CA36 PO (16:01)
[2016-04-30] MEDS ORDERED: AMLO10TA2 PO (16:01)
[2016-04-30] MEDS ORDERED: SIMV40TA4 PO (16:01)
[2016-04-30] MEDS ORDERED: ALPR0.254 PO (16:01)
[2016-04-30] MEDS: NS IV 1000 ML 1,000 ML IV SCH (16:08)
[2016-04-30] MEDS ORDERED: ALBU2.5V4 IH (16:25)
[2016-04-30] MEDS ORDERED: RT-ALBUINH IH (16:25)
[2016-04-30] MEDS ORDERED: RT-ALBUTEROL/IPRATROPIUM 3 ML (DUONEB) VIAL INH PRN (17:00)
[2016-04-30] MEDS ORDERED: RX-TRAMADOL 50 MG (ULTRAM) TAB PPK#4 PO PRN (19:00)
[2016-04-30] MEDS ORDERED: FUROSEMIDE 40 MG (LASIX) TAB PO PRN (19:00)
[2016-04-30] MEDS ORDERED: PNEUMOCOCCAL VACCINE 25 MCG/0.5 ML VIAL IM ONE (20:00)
[2016-04-30] MEDS ORDERED: PANTOPRAZOLE 40 MG (PROTONIX) TAB PO ONE (20:23)
[2016-04-30] MEDS: APIXABAN 2.5 MG (ELIQUIS) TABLET PO SCH (20:30)
[2016-04-30] MEDS: SIMvastatin 40 MG (ZOCOR) TAB PO SCH (20:30)
[2016-04-30] MEDS: ALPRAZolam 0.25 MG (XANAX) TAB PO PRN (20:30)
[2016-04-30] MEDS: PANTOPRAZOLE 40 MG (PROTONIX) TAB PO SCH (20:31)
[2016-04-30] MEDS ORDERED: APIXABAN 2.5 MG (ELIQUIS) TABLET PO SCH (21:00)
[2016-04-30] MEDS: RT-ALBUTEROL/IPRATROPIUM 3 ML (DUONEB) VIAL INH SCH (21:27)
[2016-05-01] VITALS (24 sets, daily range): BP systolic 107–169; BP diastolic 44–94
[2016-05-01] MEDS: DILTIAZEM DRIP 100 MG/NS 100 ML IV SCH ×6 (01:38→19:53)
[2016-05-01] MEDS: RT-ALBUTEROL/IPRATROPIUM 3 ML (DUONEB) VIAL INH SCH ×4 (03:06→19:35)
[2016-05-01 04:27] LABS: BASOPHILS % (AUTO) 0 % (0-10); EOSINOPHILS # (AUTO) 0.3 10^3/uL (0.0-0.3); EOSINOPHILS % (AUTO) 3 % (0-10); LYMPHOCYTES # (AUTO) 3.2 X 10^3 (1.0-4.0); LYMPHOCYTES % (AUTO) 29 % (12-44); MEAN CORPUSCULAR HEMOGLOBIN 27 PG (25-34); MEAN CORPUSCULAR HGB CONC 32 G/DL (32-36); MEAN CORPUSCULAR VOLUME 84 FL (80-99); MEAN PLATELET VOLUME 8.8 FL (7.4-10.4); MONOCYTES # (AUTO) 1.2 X 10^3 (0.0-1.0); MONOCYTES % (AUTO) 11 % (0-12); NEUTROPHILS # (AUTO) 6.3 X 10^3 (1.8-7.8); NEUTROPHILS % (AUTO) 57 % (42-75); PLATELET COUNT 330 10^3/uL (130-400); RED BLOOD COUNT 3.32 10^6/uL (4.35-5.85); RED CELL DISTRIBUTION WIDTH 15.8 % (10.0-14.5); WHITE BLOOD COUNT 11.1 10^3/uL (4.3-11.0)
[2016-05-01 04:52] LABS: CALCIUM 8.4 MG/DL (8.5-10.1); CREATININE SERUM 1.75 MG/DL (0.60-1.30); MAGNESIUM 2.9 MG/DL (1.8-2.4); PHOSPHORUS 4.2 MG/DL (2.3-4.7); POTASSIUM 4.2 MMOL/L (3.6-5.0)
[2016-05-01] MEDS: KCL 20 MEQ TAB (K-DUR) PO SCH (05:07)
[2016-05-01] MEDS: POTASSIUM CL 10MEQ/50ML IVPB 50 ML IV SCH (05:07)
[2016-05-01] MEDS: MAGNESIUM 1 GM/100 ML IVPB 100 ML IV SCH (05:07)
--- NOTE | 2016-05-01 07:34 | History & Physicial ---
History of Present Illness History of Present Illness Reason for visit/HPI PATIENT CAME TO THE OFFICE. pATIENT SHORT OF BREATH COUGHING CONGESTION AND WHEEZING. Patient sent out to the emergency room and EKG showed atrial fib with RVR. UA questionable. Patient admitted. Surgeries complete hysterectomy family history denies asthma TB diabetes heart disease lung disease cancer Date of Admission Apr 30, 2016 at 14:50 I consulted on this patient on 05/01/16 07:29 Attending Physician Fritz Lopez DO Admitting Physician Fritz Lopez DO Consult Allergies and Home Medications Allergies Coded Allergies: No Known Drug Allergies (Unverified , 04/07/10) Home Medications Albuterol Sulfate 18 Gm Hfa.aer.ad 2 PUFF IH TID PRN PRN SHORTNESS OF BREATH ( Reported) Albuterol Sulfate 2.5 Mg/3 Ml Vial.neb 2.5 MG IH TID PRN PRN SHORTNESS OF BREATH (Reported) Alprazolam 0.25 Mg Tablet 0.25 MG PO BID PRN PRN ANXIETY (Reported) Amlodipine Besylate 10 Mg Tablet 10 MG PO DAILY (Reported) Apixaban 2.5 Mg Tablet 2.5 MG PO BID (Reported) Furosemide 40 Mg Tablet 40 MG PO DAILY PRN PRN FLUID RETENTION (Reported) ONLY TAKES IS SHE HAS A WEIGHT GAIN OF 3 POUNDS. Loratadine 10 Mg Tablet 10 MG PO DAILY (Reported) Omeprazole 40 Mg Capsule.dr 40 MG PO DAILY (Reported) LAST FILLED 11/07/15 #90 Simvastatin 40 Mg Tablet 40 MG PO HS (Reported) Tramadol HCl 50 Mg Tablet 50 MG PO BID (Reported) Trazodone HCl 50 Mg Tablet 50 MG PO HS (Reported) Past Ogvufmm-Bwmbmn-Rjrugo Hx Patient Social History Employed/Student: unemployed Alcohol Use: Denies Use Recreational Drug Use: No Smoking Status: Never a Smoker Former smoker/When Quit: Apr 28, 2004 Physical Abuse Screen: No Sexual Abuse: No Recent Foreign Travel: No Contact w/other who traveled: No Recent Hopitalizations: No Recent Infectious Disease Expo: No Immunizations Up To Date Date of Pneumonia Vaccine: Dec 28, 2007 Date of Influenza Vaccine: Mar 19, 2016 Seasonal Allergies Seasonal Allergies: Yes Surgeries HX Surgeries: Yes (RIGHT TOTAL HIP) Surgeries: Hysterectomy Respiratory Hx Respiratory Disorders: Yes Respiratory Disorders: COPD Cardiovascular Hx Cardiovascular Disorders: Yes Cardiac Disorders: Atrial Fibrillation Neurological Hx Neurological Disorders: Yes Reproductive System Hx Reproductive Disorders: Yes (CERVICAL CANCER WITH HYSTERECTOMY) Sexually Transmitted Disease: No Genitourinary Hx Genitourinary Disorders: Yes (URINARY RETENTION) Gastrointestinal Hx Gastrointestinal Disorders: No Musculoskeletal Hx Musculoskeletal Disorders: Yes (RIGHT TOTAL HIP, OSTEOARTHRITIS) Endocrine Hx Endocrine Disorders: No HEENT HX ENT Disorders: No Cancer Hx Cancer: Yes Cancer: Cervical Psychosocial Hx Psychiatric Problems: Yes Behavioral Health Disorders: Anxiety, Depression Integumentary HX Skin/Integumentary Disorder: No Blood Transfusions Hx Blood Disorders: Yes (Anemia) Family Medical History Significant Family History: No Pertinent Family Hx Family Hx: FH: CVA (cerebrovascular accident) 19 MOTHER G8 SISTER Constitutional: malaise weakness EENTM: no symptoms reported Respiratory: short of breath wheezing Cardiovascular: other ([place] fibrillation history) Gastrointestinal: no symptoms reported Genitourinary: other (history of infection) : No Physical Exam Vital Signs Vital Sign - Last 12Hours 04/30/16 11:10 Temp 98.7 Pulse 110 Resp 16 B/P 153/80 Pulse Ox 95 O2 Delivery Room Air Capillary Refill : Less Than 3 Seconds General Appearance: No Apparent Distress WD/WN Eyes: Bilateral Eye Normal Inspection HEENT: TMs Normal Normal ENT Inspection Neck: Full Range of Motion Normal Inspection Respiratory: Chest Non Tender No Accessory Muscle Use No Respiratory Distress Decreased Breath Sounds Wheezing Cardiovascular: Irregularly Irregular Gastrointestinal: Non Tender Soft Assessment/Plan Assessment and Plan acute bronchitis. A. fib with RVR. UTI. Coronary artery disease Clinical Quality Measures DVT/VTE Risk/Contraindication: Risk Factor Score Per Nursin RFS Level Per Nursing on Admit: 4+=Very High FRITZ LOPEZ DO May 01, 2016 07:34
[2016-05-01] MEDS ORDERED: NON-FORMULARY MEDICATION 1 EA EA (Omeprazole 40 MG) PO SCH (09:00)
[2016-05-01] MEDS: APIXABAN 2.5 MG (ELIQUIS) TABLET PO SCH ×2 (09:06→20:43)
[2016-05-01] MEDS: amLODIPine 10 MG (NORVASC) TAB PO SCH (09:07)
[2016-05-01] MEDS: cefTRIAXone 1 GM/NS 50 ML IVPB IV SCH ×2 (09:07)
[2016-05-01] MEDS: LORATADINE (CLARITIN) 10 MG TAB PO SCH (09:07)
[2016-05-01] MEDS: PANTOPRAZOLE 40 MG (PROTONIX) TAB PO SCH (09:08)
[2016-05-01] MEDS ORDERED: DILTIAZEM 240 MG (CARDIZEM CD) CAP PO NR (10:57)
--- NOTE | 2016-05-01 13:50 | Consultation-Cardiology ---
HPI-Cardiology Cardiology Consultation: Date of Consultation 05/01/16 Date of Admission Attending Physician Fritz Aguilar DO Admitting Physician Fritz Aguilar DO Consulting Physician Vera HORN MD HPI: Chief Complaint: shortness of breath 89 year old lady with history of atrial fibrillation. she follows with Dr Glass and Dr Aguilar as outpatient. Already on Eliquis. Cough, shortness of breath. Denies fever, chest pain, syncope, near syncope, lower extremity swelling. Review of Systems-Cardiology Review of Systems Constitutional: No As described under HPI, No no symptoms reported, No chills, No fever, No lightheadedness, No malaise, No tiredness, No weight loss, No weight gain, No other Eyes: No As described under HPI, No no symptoms reported, No blindness, No blurred vision, No contact lenses, No drainage, No decreased acuity, No foreign body sensation, No glasses, No inflammation, No pain, No photophobia, No previous injury, No shadows, No tunnel vision, No other, No vision change Ears/Nose/Throat: No As described under HPI, No no symptoms reported, No chronic hearing loss, No epistaxis, No ear discharge, No ear pain, No loose teeth, No mouth pain, No mouth swelling, No nasal drainage, No nose pain, No recent hearing loss, No throat pain, No throat swelling, No ulcerations, No other Respiratory: cough shortness of breath Cardiovascular: No no symptoms reported, No As described under HPI, No chest pain, No edema, irregular heart rateNo lightheadedness, No palpitations, No syncope, No other Gastrointestinal: No no symptoms reported, No As described under HPI, No abdomen distended, No abdominal pain, No blood streaked bowels, No constipation , No diarrhea, No difficulty swallowing, No nausea, No poor appetite, No poor fluid intake, No rectal bleeding, No vomiting, No other, No nausea/vomiting/ diarrhea, No stool coloration changes Genitourinary: No no symptoms reported, No As described under HPI, No burning, No dysuria, No discharge, No frequency, No flank pain, No hematuria, No incontinence, No pain, No urgency, No other, No urine frequency changes, No urine coloration changes : No Musculoskeletal: No no symptoms reported, No As describe under HPI, No back pain, No gout, No joint pain, No joint swelling, No muscle pain, No muscle stiffness, No neck pain, No other Skin: No no symptoms reported, No As described under HPI, No change in color, No change in hair/nails, No dryness, No lesions, No lumps, No rash, No other, No skin related problems, No ulcerations, No rash on exposed areas, No ulcerations on exposed areas Psychiatric/Neurological: No As described under HPI, No anxiety, No depression , No emotional problems, No focal weakness, No headache, No no symptoms reported , No numbness, No other, No pre-existing deficit, No seizure, No syncope, No tingling, No tremors, No weakness All Other Systems Reviewed Negative Unless Noted: Yes [id number] Hx Patient Social History Employed/Student: unemployed Alcohol Use: Denies Use Recreational Drug Use: No Smoking Status: Never a Smoker Former smoker/When Quit: Apr 28, 2004 Recent Foreign Travel: No Recent Infectious Disease Expo: No Hospitalization with Isolation: Denies Physical Abuse Screen: No Sexual Abuse: No Immunizations Up To Date Date of Pneumonia Vaccine: Dec 28, 2007 Date of Influenza Vaccine: Mar 19, 2016 Past Medical History PMH As described under Assessment. Family Medical History Family History: FH: CVA (cerebrovascular accident) 19 MOTHER G8 SISTER Allergies and Home Medications Allergies Coded Allergies: No Known Drug Allergies (Unverified , 04/07/10) Home Medications Albuterol Sulfate 18 Gm Hfa.aer.ad 2 PUFF IH TID PRN PRN SHORTNESS OF BREATH ( Reported) Albuterol Sulfate 2.5 Mg/3 Ml Vial.neb 2.5 MG IH TID PRN PRN SHORTNESS OF BREATH (Reported) Alprazolam 0.25 Mg Tablet 0.25 MG PO BID PRN PRN ANXIETY (Reported) Amlodipine Besylate 10 Mg Tablet 10 MG PO DAILY (Reported) Apixaban 2.5 Mg Tablet 2.5 MG PO BID (Reported) Furosemide 40 Mg Tablet 40 MG PO DAILY PRN PRN FLUID RETENTION (Reported) ONLY TAKES IS SHE HAS A WEIGHT GAIN OF 3 POUNDS. Loratadine 10 Mg Tablet 10 MG PO DAILY (Reported) Omeprazole 40 Mg Capsule.dr 40 MG PO DAILY (Reported) LAST FILLED 11/07/15 #90 Simvastatin 40 Mg Tablet 40 MG PO HS (Reported) Tramadol HCl 50 Mg Tablet 50 MG PO BID (Reported) Trazodone HCl 50 Mg Tablet 50 MG PO HS (Reported) Physical Exam-Cardiology Physical Exam Vital Signs/I&O Vital Sign - Last 12Hours 05/01/16 05/01/16 05/01/16 05/01/16 02:00 03:00 03:06 04:00 Pulse 75 95 Resp 18 21 B/P 147/80 147/70 Pulse Ox 93 95 94 O2 Delivery Room Air Room Air Room Air Room Air 05/01/16 05/01/16 05/01/16 05/01/16 04:00 04:00 05:00 06:00 Temp 97.9 Pulse 86 89 75 Resp 26 28 25 B/P 123/56 156/60 126/47 Pulse Ox 93 95 95 O2 Delivery Room Air Room Air Room Air 05/01/16 05/01/16 05/01/16 05/01/16 07:00 08:00 08:00 08:00 Temp 98.2 Pulse 82 Pulse Ox 94 O2 Delivery Room Air Room Air 05/01/16 05/01/16 05/01/16 11:07 12:00 12:45 Temp 98.6 Pulse 65 B/P 133/61 O2 Delivery Room Air Intake and Output 05/01/16 00:00 Intake Total 1775 ml Output Total 150 ml Balance 1625 ml Capillary Refill : Less Than 3 Seconds Constitutional: No appears stated age, No AAO x 3, No apparent distress, No PERRL, No well-developed, No well-nourished, No other HEENT: No PERRL, No normal ENT inspection, No TMs normal, No pharynx normal, No scleral icterus (R), No scleral icterus (L), No pale conjunctivae (R), No pale conjunctivae (L), No photophobia, No TM abnormal (R), No TM abnormal (L), No pharyngeal erythema, No tonsillar exudate, No other, No discharge, No EOMI, No hearing is well preserved, No hard of hearing, No oral hygience is good, No ulceration, No xanthelasmas are seen Neck: No non-tender, No full range of motion, No supple, No normal inspection, No carotid bruit, No limited range of motion, No lymphadenopathy (R), No lymphadenopathy (L), No tender lateral, No tender midline, No thyromegaly, No other, No carotid pulses are 2 + bilaterally, No with good upstrokes Respiratory: No accessory muscle use, No respiratory distress, No chest tender , No chest expansion is symmetric, No chest is bilaterally symmetric, No lungs clear to percussion, No lungs clear to auscultation, No crackles, rhonchiNo rales, No stridor, No wheezing, No pleural rub, No other Cardiovascular: irregularly irregular Gastrointestinal: No tender, No soft, No round, No distended, No pulsatile mass , No organomegaly, No guarding, No rebound, No tenderness, No hernia, No mass, No audible bowel sounds, No abnormal bowel sounds, No abdominal bruits, No spleenomegaly, No other Rectal: deferred Extremities: No normal range of motion, No non-tender, No normal inspection, No pedal edema, No calf tenderness, No normal capillary refill, No pelvis stable , No calf tenderness, No inflammation, No pedal edema, No slow capillary refill , No swelling, No other, No abrasion, No clubbing, No cyanosis, No ecchymosis, No laceration, No no lower extremity edema bilateral, No significant edema, No tenderness, No wound Neurologic/Psychiatric: No twisting frame operator II-XII nml as tested, No no motor/sensory deficits, No alert, No normal mood/affect, No oriented x 3, No abnormal cerebellar tests, No abnormal twisting frame operator II-XII, No abnormal gait, No aphasia, No EOM palsy, No facial droop, No motor weakness, No sensory deficit, No depressed affect, No disoriented x 3, No other, No grossly intact, No power is 5/5 both on sides Skin: No normal color, No warm/dry, No cyanosis, No cool, No diaphoresis, No damp, No ecchymosis, No jaundice, No mottled, No pallor, No rash, No tattoos/ piercings, No ulcerations, No rash on exposed areas, No ulcerations on exposed areas, No other Data Review Labs Laboratory Tests 05/01/16 03:42: Anion Gap 9, BUN/Creatinine Ratio 17, Basophils # (Auto) 0.0, Basophils (%) ( Auto) 0, Blood Urea Nitrogen 30H, Calcium Level 8.4L, Carbon Dioxide Level 22, Chloride Level 105, Creatinine 1.75H, Eosinophils # (Auto) 0.3, Eosinophils (%) (Auto) 3, Estimat Glomerular Filtration Rate 27, Glucose Level 155H, Hematocrit 28L, Hemoglobin 9.0L, Lymphocytes # (Auto) 3.2, Lymphocytes (%) (Auto) 29, Magnesium Level 2.9H, Mean Corpuscular Hemoglobin 27, Mean Corpuscular Hemoglobin Concent 32, Mean Corpuscular Volume 84, Mean Platelet Volume 8.8, Monocytes # (Auto) 1.2H, Monocytes (%) (Auto) 11, Neutrophils # (Auto) 6.3, Neutrophils (%) (Auto) 57, Phosphorus Level 4.2, Platelet Count 330, Potassium Level 4.2, Red Blood Count 3.32L, Red Cell Distribution Width 15.8H, Sodium Level 136, White Blood Count 11.1H Microbiology 04/30/16 Urine Culture - Preliminary, Resulted ECG Impression ECG Initial ECG Impression: Atrial Fibrillation w/RVR A/P-Cardiology Assessment/Admission Diagnosis atrial fibrillation with RVR, pneumonia Plan This is a patient of Dr Glass. Has history of AF on eliquis. Presents with AF with RVR and pneumonia. Defer treatment of pneumonia to Dr Aguilar. Continue iv cardizem infusion. change to po cardizem 240mg in am. dc infusion four hours later. Thank you for your consultation. Please call me if you have any questions. Edgardo Horn MD, FACP, FACC, FSCAI, FHRS, CCDS Interventional Cardiology Cardiac Electrophysiology Vascular Medicine and Endovascular Interventions Clinical Quality Measures DVT/VTE Risk/Contraindication: Risk Factor Score Per Nursin RFS Level Per Nursing on Admit: 4+=Very High Contraindications-Pharm: Other *list below* Vera HORN MD May 01, 2016 1:50 pm
--- NOTE | 2016-05-01 14:46 | Diagnostic Imaging Report ---
INDICATION: Dyspnea. TECHNIQUE: Single view chest at 5:07 AM. CORRELATION STUDY: 04/30/2016. FINDINGS: The heart size is enlarged. The vasculature appears to be within normal limits. The hilar structures are relatively prominent but stable. The lungs are clear with no consolidating infiltrate. There is no significant effusion or pneumothorax. IMPRESSION: Stable cardiac enlargement without evidence for overt failure. Dictated by: Dictated on workstation # [id number]
[2016-05-01] MEDS: NS IV 1000 ML 1,000 ML IV SCH (18:06)
[2016-05-01] MEDS: ALPRAZolam 0.25 MG (XANAX) TAB PO PRN (20:42)
[2016-05-01] MEDS: SIMvastatin 40 MG (ZOCOR) TAB PO SCH (20:43)
[2016-05-02] VITALS (22 sets, daily range): BP systolic 88–154; BP diastolic 45–105
[2016-05-02] MEDS: RT-ALBUTEROL/IPRATROPIUM 3 ML (DUONEB) VIAL INH SCH ×4 (02:44→20:04)
[2016-05-02] MEDS: DILTIAZEM DRIP 100 MG/NS 100 ML IV SCH ×4 (03:14→09:43)
[2016-05-02 04:57] LABS: BASOPHILS % (AUTO) 0 % (0-10); EOSINOPHILS # (AUTO) 0.4 10^3/uL (0.0-0.3); EOSINOPHILS % (AUTO) 3 % (0-10); LYMPHOCYTES # (AUTO) 2.1 X 10^3 (1.0-4.0); LYMPHOCYTES % (AUTO) 17 % (12-44); MEAN CORPUSCULAR HEMOGLOBIN 27 PG (25-34); MEAN CORPUSCULAR HGB CONC 32 G/DL (32-36); MEAN CORPUSCULAR VOLUME 83 FL (80-99); MEAN PLATELET VOLUME 8.4 FL (7.4-10.4); MONOCYTES # (AUTO) 1.3 X 10^3 (0.0-1.0); MONOCYTES % (AUTO) 10 % (0-12); NEUTROPHILS # (AUTO) 8.4 X 10^3 (1.8-7.8); NEUTROPHILS % (AUTO) 69 % (42-75); PLATELET COUNT 352 10^3/uL (130-400); RED BLOOD COUNT 3.46 10^6/uL (4.35-5.85); WHITE BLOOD COUNT 12.1 10^3/uL (4.3-11.0)
[2016-05-02 05:15] LABS: CALCIUM 8.5 MG/DL (8.5-10.1); CREATININE SERUM 1.8 MG/DL (0.60-1.30); PHOSPHORUS 4.9 MG/DL (2.3-4.7); POTASSIUM 4.4 MMOL/L (3.6-5.0)
[2016-05-02] MEDS: POTASSIUM CL 10MEQ/50ML IVPB 50 ML IV SCH (05:19)
[2016-05-02] MEDS: KCL 20 MEQ TAB (K-DUR) PO SCH (05:20)
[2016-05-02] MEDS: MAGNESIUM 1 GM/100 ML IVPB 100 ML IV SCH (05:20)
[2016-05-02] MEDS ORDERED: DILTIAZEM 240 MG (CARDIZEM CD) CAP PO NR (07:00)
[2016-05-02] MEDS: PANTOPRAZOLE 40 MG (PROTONIX) TAB PO SCH (07:37)
--- NOTE | 2016-05-02 07:42 | Progress Note (SOAP) ---
Subjective Subjective/Events-last exam patient states she feels rough today. Patient has been coughing much. Dry cough Patient not coughing up anything. Patient put on oral Cardizem atrial fib Objective Exam Vital Signs Date Time Temp Pulse Resp B/P Pulse Ox O2 Delivery O2 Flow Rate FiO2 05/02/16 06:00 94 25 142/67 94 Room Air 05/02/16 05:00 53 19 140/77 93 Room Air 05/02/16 04:00 112 22 144/45 94 Room Air 05/02/16 04:00 Room Air 05/02/16 03:14 86 05/02/16 03:00 116 25 140/56 93 Room Air 05/02/16 02:45 96 Room Air 05/02/16 02:00 113 25 150/54 92 Room Air 05/02/16 01:00 58 16 147/72 97 Room Air 05/02/16 01:00 58 05/02/16 00:00 73 27 150/63 94 Room Air 05/01/16 23:56 98.8 Room Air 05/01/16 23:56 Room Air 05/01/16 23:00 118 19 157/56 94 Room Air 05/01/16 22:00 112 30 153/64 94 Room Air 05/01/16 21:00 109 14 134/74 93 Room Air 05/01/16 20:00 Room Air 05/01/16 20:00 112 35 139/85 95 Room Air 05/01/16 19:58 98.4 05/01/16 19:53 121 05/01/16 19:35 97 Room Air 05/01/16 19:00 80 05/01/16 19:00 80 28 157/55 97 Room Air 05/01/16 18:00 94 35 141/70 95 Room Air 05/01/16 17:00 118 25 139/44 96 Room Air 05/01/16 16:03 94 Room Air 05/01/16 16:00 88 28 130/59 94 Room Air 05/01/16 16:00 Room Air 05/01/16 16:00 98.9 05/01/16 15:00 118 16 169/61 95 Room Air 05/01/16 14:00 95 30 144/82 94 Room Air 05/01/16 13:00 76 05/01/16 13:00 84 17 127/57 94 Room Air 05/01/16 12:45 98.6 05/01/16 12:00 Room Air 05/01/16 11:07 65 133/61 05/01/16 11:00 85 20 107/94 96 Room Air 05/01/16 10:00 70 137/62 Room Air 05/01/16 09:00 78 16 153/65 89 Room Air 05/01/16 08:00 94 Room Air 05/01/16 08:00 Room Air 05/01/16 08:00 72 13 113/85 100 Room Air 05/01/16 08:00 98.2 I & O 05/02/16 07:00 Intake Total 2040 ml Output Total 1725 ml Balance 315 ml Capillary Refill : Less Than 3 Seconds General Appearance: No Apparent Distress WD/WN HEENT: Normal ENT Inspection Neck: Full Range of Motion Normal Inspection Non Tender Respiratory: Other (chest congestion starting to improve) Cardiovascular: Irregularly Irregular Gastrointestinal: non tender soft Results Lab Laboratory Tests 05/02/16 04:44 Laboratory Tests 05/02/16 04:44: Anion Gap 10, BUN/Creatinine Ratio 16, Basophils # (Auto) 0.0, Basophils (%) ( Auto) 0, Blood Urea Nitrogen 29H, Calcium Level 8.5, Carbon Dioxide Level 22, Chloride Level 106, Creatinine 1.80H, Eosinophils # (Auto) 0.4H, Eosinophils (% ) (Auto) 3, Estimat Glomerular Filtration Rate 26, Glucose Level 113H, Hematocrit 29L, Hemoglobin 9.3L, Lymphocytes # (Auto) 2.1, Lymphocytes (%) (Auto ) 17, Magnesium Level 3.0H, Mean Corpuscular Hemoglobin 27, Mean Corpuscular Hemoglobin Concent 32, Mean Corpuscular Volume 83, Mean Platelet Volume 8.4, Monocytes # (Auto) 1.3H, Monocytes (%) (Auto) 10, Neutrophils # (Auto) 8.4H, Neutrophils (%) (Auto) 69, Phosphorus Level 4.9H, Platelet Count 352, Potassium Level 4.4, Red Blood Count 3.46L, Red Cell Distribution Width 16.0H, Sodium Level 138, White Blood Count 12.1H Microbiology 04/30/16 Blood Culture - Preliminary, Resulted No growth 04/30/16 Urine Culture - Preliminary, Resulted Assessment/Plan Assessment/Plan Assess & Plan/Chief Complaint atrial A. fib with RVR. Bronchitis. Patient improving in chest but still has problems Diagnosis/Problems: Clinical Quality Measures DVT/VTE Risk/Contraindication: Risk Factor Score Per Nursin RFS Level Per Nursing on Admit: 4+=Very High Contraindications-Pharm: Other *list below* WILLARD LOPEZ DO May 02, 2016 07:42
[2016-05-02] MEDS: APIXABAN 2.5 MG (ELIQUIS) TABLET PO SCH ×2 (09:22→20:59)
[2016-05-02] MEDS: cefTRIAXone 1 GM/NS 50 ML IVPB IV SCH ×2 (09:22)
[2016-05-02] MEDS: LORATADINE (CLARITIN) 10 MG TAB PO SCH (09:22)
[2016-05-02] MEDS: amLODIPine 10 MG (NORVASC) TAB PO SCH (09:22)
[2016-05-02] MEDS: BENZONATATE 100 MG (TESSALON) CAPSULE PO SCH ×3 (09:36→21:00)
[2016-05-02] MEDS: guaiFENesin/DM (ROBITUSSIN DM) 10 ML UDC PO PRN ×2 (09:36→17:09)
--- NOTE | 2016-05-02 10:22 | Diagnostic Imaging Report ---
INDICATION: Dyspnea. TECHNIQUE: Single view chest 4.54 a.m. CORRELATION STUDY: 05/01/2016 FINDINGS: Heart size enlarged. Vasculature is within normal limits. Lungs are clear. Probable granuloma in the right lung base. IMPRESSION: 1. Cardiac enlargement without failure. Dictated by: Dictated on workstation # [id number]
--- NOTE | 2016-05-02 11:26 | Physical Therapy Evaluation ---
PT Evaluation-General Medical Diagnosis Admission Date Apr 30, 2016 at 14:50 Medical Diagnosis: bronchitis/UTI Onset Date: Apr 30, 2016 Therapy Diagnosis Therapy Diagnosis: general debility/weakness Height/Weight Height (Feet): 5 Height (Inches): 2.50 Weight (Pounds): 223 Weight (Ounces): 2.0 Precautions Precautions/Isolations: Fall Prevention, Standard Precautions Referral Physician: Jeff Reason for Referral: Evaluation/Treatment Medical History Pertinent Medical History: Atrial Fib, OA Additional Medical History right THR Current History increase in cough and SOA; patient is inactive PLOF per patient report Reviewed History: Yes Social History Home: Single Level Current Living Status: Other Family Prior/Core FIM Prior Level of Function Functional [place] Measure 0=Not Assessed/NA 4=Minimal Assistance 1=Total Assistance 5=Supervision or Setup 2=Maximal Assistance 6=Modified [place] 3=Moderate Assistance 7=Complete [place] Bed Mobility: 6 Transfers (B,C,W/C) (FIM): 6 Gait: 2 Locomotion: 5 Wheelchair Mobility: 5 has a scooter for mobility PLOF; patient states she ambulates short distances at home PT Evaluation-Current Subjective Patient is in bed and agrees to therapy. Pain Numeric Pain Scale: 0-No Pain Location: No Pain Reported Objective Patient Orientation: Normal For Age Problem Solving: Good ROM/Strength ROM Lower Extremities bilateral LE WFL Strenght Lower Extremities bilateral LE 4-/5 grossly Integumentary/Posture Integumentary refer to nursing notes Bowel Incontinence: No Bladder Incontinence: No Posture WNL Neuromuscular (Tone, Coordination, Reflexes) slightly diminished due to inactivity PLOF Sensory Vision: Functional Hearing: Functional Sensation Right Lower Extremit: Intact Sensation Left Lower Extremity: Intact Transfers Functional [place] Measure 0=Not Assessed/NA 4=Minimal Assistance 1=Total Assistance 5=Supervision or Setup 2=Maximal Assistance 6=Modified [place] 3=Moderate Assistance 7=Complete [place] Transfers (B, C, W/C) (FIM): 5 Scootin Rollin Supine to/from Sit: 5 Sit to/from Stand: 5 Gait Mode of Locomotion: Walk Anticipated Mode of Locomotion: Walk Gait (FIM): 1 Distance (FIM): 1=up to 49 ft Distance: 45' Gait Level of Assist: 5 Gait Persons Needed: 1 Gait Assistive Device: FWW Comments/Gait Description safe and functional with FWW Balance Sitting Static: Normal Sitting Dynamic: Normal Standing Static: Normal Standing Dynamic: Normal Assessment/Needs 89 y.o. inactive female, will benefit from short term skilled PT to ensure safe return to home at maximum LOF. Patient is limited with cardiopulmonary function which limits functional mobility. Rehab Potential: Fair Post Rehab Potential-Barriers: inactivity PT Detention Goals Detention Goals PT Detention Goals Time Frame: May 16, 2016 Transfers (B,C,W/C) (FIM): 6 Gait (FIM): 2 Gait distance (FIM): 0=979-06 ft Distance: 100' Gait Level of Assist: 6 Gait Assistive Device: FWW PT Plan Problem List Problem List: Activity Tolerance Treatment/Plan Treatment Plan: Continue Plan of Care Treatment Plan: Education, Functional Activity Raul, Functional Strength, Gait , Safety, Therapeutic Exercise, Transfers Treatment Duration: May 09, 2016 # of days/week 6 Visits Per Week: 5-6 Pt/Family Agrees w/Plan: Yes Time/GCodes Time In: 1100 Time Out: 1123 Total Billed Treatment Time: 23 Total Billed Treatment 1 visit EVL 23 min MATEUS MARK PT May 02, 2016 11:26
--- NOTE | 2016-05-02 13:18 | Cardiology Progress Note ---
Cardiology SOAP Progress Note Subjective: still short of breath with wheezing. Objective: I&O/Vital Signs Vital Sign - Last 12Hours 05/02/16 05/02/16 05/02/16 05/02/16 02:00 02:45 03:00 03:14 Pulse 113 116 86 Resp 25 25 B/P 150/54 140/56 Pulse Ox 92 96 93 O2 Delivery Room Air Room Air Room Air 05/02/16 05/02/16 05/02/16 05/02/16 04:00 04:00 05:00 06:00 Pulse 112 53 94 Resp 22 19 25 B/P 144/45 140/77 142/67 Pulse Ox 94 93 94 O2 Delivery Room Air Room Air Room Air Room Air 05/02/16 05/02/16 05/02/16 05/02/16 07:00 07:00 07:49 08:00 Temp 98.4 Pulse 115 93 117 Resp 26 21 B/P 145/105 138/59 Pulse Ox 94 93 96 O2 Delivery Room Air Room Air Room Air 05/02/16 05/02/16 05/02/16 05/02/16 08:00 09:00 09:43 10:00 Pulse 81 118 103 Resp 18 33 B/P 144/59 143/60 Pulse Ox 96 95 O2 Delivery Room Air Room Air Room Air Intake and Output 05/02/16 00:00 Intake Total 1200 ml Output Total 875 ml Balance 325 ml Weight (Pounds): 223 Weight (Ounces): 2.0 Weight (Calculated Kilograms): 101.097395 Constitutional: No appears stated age, No AAO x 3, No apparent distress, No PERRL, No well-developed, No well-nourished, No other Respiratory: No accessory muscle use, No respiratory distress, No chest tender , No chest expansion is symmetric, No chest is bilaterally symmetric, No lungs clear to percussion, No lungs clear to auscultation, No crackles, rhonchiNo rales, No stridor, wheezingNo pleural rub, No other Cardiovascular: irregularly irregular Gastrointestional: No tender, No soft, No round, No distended, No pulsatile mass, No organomegaly, No guarding, No rebound, No tenderness, No hernia, No mass, No audible bowel sounds, No abnormal bowel sounds, No abdominal bruits, No spleenomegaly, No other Extremities: No normal range of motion, No non-tender, No normal inspection, No pedal edema, No calf tenderness, No normal capillary refill, No pelvis stable , No calf tenderness, No inflammation, No pedal edema, No slow capillary refill , No swelling, No other, No abrasion, No clubbing, No cyanosis, No ecchymosis, No laceration, No no lower extremity edema bilateral, No significant edema, No tenderness, No wound Neurologic/Psychiatric: No crna II-XII nml as tested, No no motor/sensory deficits, No alert, No normal mood/affect, No oriented x 3, No abnormal cerebellar tests, No abnormal crna II-XII, No abnormal gait, No aphasia, No EOM palsy, No facial droop, No motor weakness, No sensory deficit, No depressed affect, No disoriented x 3, No other, No grossly intact, No power is 5/5 both on sides Skin: No normal color, No warm/dry, No cyanosis, No cool, No diaphoresis, No damp, No ecchymosis, No jaundice, No mottled, No pallor, No rash, No tattoos/ piercings, No ulcerations, No rash on exposed areas, No ulcerations on exposed areas, No other Results/Procedures: Labs Laboratory Tests 05/02/16 04:44: Anion Gap 10, BUN/Creatinine Ratio 16, Basophils # (Auto) 0.0, Basophils (%) ( Auto) 0, Blood Urea Nitrogen 29H, Calcium Level 8.5, Carbon Dioxide Level 22, Chloride Level 106, Creatinine 1.80H, Eosinophils # (Auto) 0.4H, Eosinophils (% ) (Auto) 3, Estimat Glomerular Filtration Rate 26, Glucose Level 113H, Hematocrit 29L, Hemoglobin 9.3L, Lymphocytes # (Auto) 2.1, Lymphocytes (%) (Auto ) 17, Magnesium Level 3.0H, Mean Corpuscular Hemoglobin 27, Mean Corpuscular Hemoglobin Concent 32, Mean Corpuscular Volume 83, Mean Platelet Volume 8.4, Monocytes # (Auto) 1.3H, Monocytes (%) (Auto) 10, Neutrophils # (Auto) 8.4H, Neutrophils (%) (Auto) 69, Phosphorus Level 4.9H, Platelet Count 352, Potassium Level 4.4, Red Blood Count 3.46L, Red Cell Distribution Width 16.0H, Sodium Level 138, White Blood Count 12.1H Microbiology 04/30/16 Blood Culture - Preliminary, Resulted No growth 04/30/16 MRSA Screen - Final, Complete MRSA not isolated 04/30/16 Urine Culture - Preliminary, Resulted A/P: Assessment/Dx: Pneumonia, AF Plan: This is a patient of Dr Glass. Has history of AF on eliquis. Presents with AF with RVR and pneumonia. Defer treatment of pneumonia/wheezing to Dr Aguilar. po cardizem 240mg - well controlled. Vera ROMANO MD May 02, 2016 1:18 pm
[2016-05-02] MEDS: NS IV 1000 ML 1,000 ML IV SCH (17:05)
[2016-05-02] MEDS: ATORVASTATIN 20 MG (LIPITOR) TABLET PO SCH (20:59)
[2016-05-02] MEDS: traZODone 50 MG (DESYREL) TAB PO SCH (21:00)
[2016-05-02] MEDS: ALPRAZolam 0.25 MG (XANAX) TAB PO PRN (21:00)
[2016-05-03] VITALS (12 sets, daily range): BP systolic 139–167; BP diastolic 51–72
[2016-05-03] MEDS: RT-ALBUTEROL/IPRATROPIUM 3 ML (DUONEB) VIAL INH SCH ×5 (02:40→22:13)
[2016-05-03 04:26] LABS: BASOPHILS % (AUTO) 0 % (0-10); EOSINOPHILS # (AUTO) 0.2 10^3/uL (0.0-0.3); EOSINOPHILS % (AUTO) 2 % (0-10); LYMPHOCYTES % (AUTO) 15 % (12-44); MEAN CORPUSCULAR HEMOGLOBIN 27 PG (25-34); MEAN CORPUSCULAR HGB CONC 33 G/DL (32-36); MEAN CORPUSCULAR VOLUME 83 FL (80-99); MEAN PLATELET VOLUME 8.9 FL (7.4-10.4); MONOCYTES # (AUTO) 1.3 X 10^3 (0.0-1.0); MONOCYTES % (AUTO) 10 % (0-12); NEUTROPHILS # (AUTO) 9.8 X 10^3 (1.8-7.8); NEUTROPHILS % (AUTO) 73 % (42-75); PLATELET COUNT 371 10^3/uL (130-400); RED BLOOD COUNT 3.47 10^6/uL (4.35-5.85); WHITE BLOOD COUNT 13.3 10^3/uL (4.3-11.0)
[2016-05-03 04:47] LABS: CALCIUM 8.7 MG/DL (8.5-10.1); CREATININE SERUM 1.83 MG/DL (0.60-1.30); MAGNESIUM 2.9 MG/DL (1.8-2.4); PHOSPHORUS 4.6 MG/DL (2.3-4.7); POTASSIUM 4.3 MMOL/L (3.6-5.0)
[2016-05-03] MEDS: POTASSIUM CL 10MEQ/50ML IVPB 50 ML IV SCH (05:01)
[2016-05-03] MEDS: MAGNESIUM 1 GM/100 ML IVPB 100 ML IV SCH (05:01)
[2016-05-03] MEDS: KCL 20 MEQ TAB (K-DUR) PO SCH (05:01)
[2016-05-03 05:04] LABS: ALBUMIN 3.3 G/DL (3.2-4.5); BILIRUBIN,TOTAL 0.4 MG/DL (0.1-1.0); CALCIUM 8.5 MG/DL (8.5-10.1); CREATININE SERUM 1.8 MG/DL (0.60-1.30); POTASSIUM 4.3 MMOL/L (3.6-5.0); TOTAL PROTEIN 6.7 G/DL (6.4-8.2)
--- NOTE | 2016-05-03 07:49 | Progress Note (SOAP) ---
Subjective Subjective/Events-last exam patient doing better heart christensen. Patient converted to sinus rhythm. Patient had a good night sleep. Patient still coughing and congestion with bronchitis but is slowly improving. Patient not ready to be discharged due to bronchitis renal insufficiency. Leukocytosis White blood cell count went up to 13,000 Objective Exam Vital Signs Date Time Temp Pulse Resp B/P Pulse Ox O2 Delivery O2 Flow Rate FiO2 05/03/16 06:00 96 28 139/54 98 Nasal Cannula 2.00 05/03/16 05:00 95 32 150/60 91 Nasal Cannula 2.00 05/03/16 04:14 98.7 05/03/16 04:00 Room Air 05/03/16 04:00 122 30 150/71 92 Room Air 05/03/16 03:00 101 28 159/58 95 Room Air 05/03/16 02:40 92 Room Air 05/03/16 02:00 85 28 141/70 91 Room Air 05/03/16 01:00 98 05/03/16 01:00 107 30 144/51 93 Room Air 05/03/16 00:29 98.7 05/03/16 00:14 101 30 149/69 94 Room Air 05/03/16 00:00 Room Air 05/02/16 23:00 89 151/78 92 Room Air 05/02/16 22:00 92 154/61 91 Room Air 05/02/16 21:00 97 23 153/72 92 Room Air 05/02/16 20:04 97 Room Air 05/02/16 20:00 Room Air 05/02/16 20:00 89 24 152/52 96 Room Air 05/02/16 19:20 97.8 05/02/16 19:00 97 05/02/16 19:00 85 27 88/73 95 Room Air 05/02/16 18:00 112 12 133/62 95 Room Air 05/02/16 17:00 110 20 122/56 Room Air 05/02/16 16:00 Room Air 05/02/16 16:00 98 18 97 Room Air 05/02/16 15:00 86 22 93 Room Air 05/02/16 14:11 95 Room Air 05/02/16 14:00 74 30 126/70 93 Room Air 05/02/16 13:00 99.3 05/02/16 13:00 85 05/02/16 13:00 76 33 141/46 93 Room Air 05/02/16 12:00 71 26 145/57 93 Room Air 05/02/16 12:00 Room Air 05/02/16 11:00 65 33 137/67 97 Room Air 05/02/16 10:00 103 33 143/60 95 Room Air 05/02/16 09:43 118 05/02/16 09:00 81 18 144/59 96 Room Air 05/02/16 08:00 Room Air 05/02/16 08:00 98.4 117 21 138/59 96 Room Air 05/02/16 07:49 93 Room Air I & O 05/03/16 07:00 Intake Total 2295 ml Output Total 1400 ml Balance 895 ml Capillary Refill : Less Than 3 Seconds General Appearance: No Apparent Distress WD/WN HEENT: Normal ENT Inspection Neck: Full Range of Motion Normal Inspection Respiratory: Wheezing Other (congestion with coughing) Cardiovascular: Regular Rate, Rhythm Gastrointestinal: non tender soft Results Lab Laboratory Tests 05/03/16 03:31: Alanine Aminotransferase (ALT/SGPT) 9, Albumin 3.3, Alkaline Phosphatase 65, Anion Gap 11, Aspartate Amino Transf (AST/SGOT) 14, BUN/Creatinine Ratio 15, Basophils # (Auto) 0.0, Basophils (%) (Auto) 0, Blood Urea Nitrogen 27H, Calcium Level 8.7, Carbon Dioxide Level 21, Chloride Level 105, Creatinine 1.83H , Eosinophils # (Auto) 0.2, Eosinophils (%) (Auto) 2, Estimat Glomerular Filtration Rate 26, Glucose Level 112H, Hematocrit 29L, Hemoglobin 9.4L, Lymphocytes # (Auto) 2.0, Lymphocytes (%) (Auto) 15, Magnesium Level 2.9H, Mean Corpuscular Hemoglobin 27, Mean Corpuscular Hemoglobin Concent 33, Mean Corpuscular Volume 83, Mean Platelet Volume 8.9, Monocytes # (Auto) 1.3H, Monocytes (%) (Auto) 10, Neutrophils # (Auto) 9.8H, Neutrophils (%) (Auto) 73, Phosphorus Level 4.6, Platelet Count 371, Potassium Level 4.3, Red Blood Count 3.47L, Red Cell Distribution Width 16.0H, Sodium Level 137, Total Bilirubin 0.4 , Total Protein 6.7, White Blood Count 13.3H Microbiology 04/30/16 Blood Culture - Preliminary, Resulted No growth 04/30/16 MRSA Screen - Final, Complete MRSA not isolated 04/30/16 Urine Culture - Final, Complete Assessment/Plan Assessment/Plan Assess & Plan/Chief Complaint atrial A. fib with RVR. Bronchitis. Patient improving in chest but still has problems. . 05/03/16. Patient converted to sinus rhythm. Patient still has bronchitis slowly improving. White blood cell count 13,000. From a chest standpoint patient not ready for discharge. Yet Diagnosis/Problems: Clinical Quality Measures DVT/VTE Risk/Contraindication: Risk Factor Score Per Nursin RFS Level Per Nursing on Admit: 4+=Very High Contraindications-Pharm: Other *list below* WILLARD LOPEZ DO May 03, 2016 07:49
--- NOTE | 2016-05-03 08:05 | Diagnostic Imaging Report ---
INDICATION: Bronchitis. Dyspnea. COMPARISON: 05/02/2016 FINDINGS: Single frontal radiographic view of the chest was obtained and demonstrate mild cardiac enlargement. Pulmonary vasculature is within normal limits. There are, however, increased perihilar interstitial lung markings with apparent peribronchial cuffing. There is no large focal alveolar consolidation, pleural effusion, no pneumothorax. Bony structures show no gross acute abnormalities. IMPRESSION: 1. Interval development of prominent interstitial perihilar lung markings and peribronchial cuffing. Findings could be on the basis of developing infiltrate. Followup is recommended. Dictated by: Dictated on workstation # [id number]
[2016-05-03] MEDS: cefTRIAXone 1 GM/NS 50 ML IVPB IV SCH ×2 (08:47)
[2016-05-03] MEDS: LORATADINE (CLARITIN) 10 MG TAB PO SCH (08:48)
[2016-05-03] MEDS: amLODIPine 10 MG (NORVASC) TAB PO SCH (08:48)
[2016-05-03] MEDS: BENZONATATE 100 MG (TESSALON) CAPSULE PO SCH ×3 (08:48→20:35)
[2016-05-03] MEDS: DILTIAZEM 240 MG (CARDIZEM CD) CAP PO SCH (08:49)
[2016-05-03] MEDS: APIXABAN 2.5 MG (ELIQUIS) TABLET PO SCH ×2 (08:49→20:35)
--- NOTE | 2016-05-03 09:43 | Physical Therapy Daily Note ---
PT Daily Note-Current Subjective Patient is in bed and agrees to therapy. Pain Numeric Pain Scale: 0-No Pain Location: No Pain Reported Mental Status Patient Orientation: Normal For Age Attachments: Oxygen, IV Transfers Functional [place] Measure 0=Not Assessed/NA 4=Minimal Assistance 1=Total Assistance 5=Supervision or Setup 2=Maximal Assistance 6=Modified [place] 3=Moderate Assistance 7=Complete IndependenceIRFPAI Quality Coding Scale 6 Independent with activity with or without an assistive device 5 Patient requires set up or clean up by helper. Patient completes activity by themselves 4 Supervision or touching assist (CGA). Rosiclare provide cues , steadying assist 3 The helper provides less than half the effort to complete the activity 2 The helper provides more than half the effort to complete the activity 1 Dependent. The helper does all the effort to complete an activity 7 Patient refused to complete or attempt activity 9 The patient did not perform the activity before the current illness or injury 88 Not attempted due to Medical conditions or safety concerns Transfers (B, C, W/C) (FIM): 6 Scootin Rollin Supine to/from Sit: 6 Sit to/from Stand: 6 Gait Training Gait (FIM): 1 Distance (FIM): 1=up to 49 ft Distance: 45' Gait Level of Assist: 5 Gait Assistive Device: FWW safe and functional; patient ambulates short distances only Exercises Supine Ex: Ankle pumps, Quad Set, Glut sets, Heel Slides Supine Reps: 20 exercises to improve functional mobility and strength Assessment Patient tolerated treatment well and is up in recliner with needs met. PT to increase activity as tolerated by patient. PT Half-Way Goals Half-Way Goals PT Helmet Binder Goals Time Frame: May 16, 2016 Transfers (B,C,W/C) (FIM): 6 Gait (FIM): 2 Gait distance (FIM): 8=922-30 ft Distance: 100' Gait Level of Assist: 6 Gait Assistive Device: FWW PT Plan Treatment/Plan Treatment Plan: Continue Plan of Care Treatment Plan: Education, Functional Activity Raul, Functional Strength, Gait , Safety, Therapeutic Exercise, Transfers Treatment Duration: May 09, 2016 Visits Per Week: 5-6 Time/GCodes Time In: 830 Time Out: 853 Total Billed Treatment Time: 23 Total Billed Treatment 1 visit GT 8 min EX 15 min MATEUS MARK PT May 03, 2016 09:43
--- NOTE | 2016-05-03 10:41 | Physician Query-General Query ---
Physician Query-General Query to Physician: For clarification: 1. Dr. Horn gave a diagnosis of pneumonia. After review, do you agree or disagree? 2. If agree, was pneumonia present on admission or did it develop after? PHYSICIAN RESPONSE: Based on the clinical findings in the record, please respond to the query above on this document as an addendum. Possible, probable, or questionable diagnosis can be coded for INPATIENTS ONLY. Physician Response: Physician Response bronchitis If you have questions please contact: Pulley Maintainer:Criss Stauffer [facility],CCDS Ext:[phone] Thank you for your time and cooperation. Clinical [employer] Consultant/Pulley Maintainer This is a permanent part of the medical record CRISS STAUFFER May 03, 2016 10:41 WILLARD LOPEZ DO May 06, 2016 07:16
--- NOTE | 2016-05-03 11:14 | Cardiology Progress Note ---
Cardiology SOAP Progress Note Subjective: Feeling better Objective: I&O/Vital Signs Vital Sign - Last 12Hours 05/03/16 05/03/16 05/03/16 05/03/16 00:00 00:14 00:29 01:00 Temp 98.7 Pulse 101 107 Resp 30 30 B/P 149/69 144/51 Pulse Ox 94 93 O2 Delivery Room Air Room Air Room Air 05/03/16 05/03/16 05/03/16 05/03/16 01:00 02:00 02:40 03:00 Pulse 98 85 101 Resp 28 28 B/P 141/70 159/58 Pulse Ox 91 92 95 O2 Delivery Room Air Room Air Room Air 05/03/16 05/03/16 05/03/16 05/03/16 04:00 04:00 04:14 05:00 Temp 98.7 Pulse 122 95 Resp 30 32 B/P 150/71 150/60 Pulse Ox 92 91 O2 Delivery Room Air Room Air Nasal Cannula O2 Flow Rate 2.00 05/03/16 05/03/16 05/03/16 05/03/16 06:00 07:00 07:00 08:00 Pulse 96 96 96 Resp 28 26 B/P 139/54 145/54 Pulse Ox 98 98 O2 Delivery Nasal Cannula Nasal Cannula Room Air O2 Flow Rate 2.00 2.00 05/03/16 05/03/16 05/03/16 08:00 08:59 09:00 Pulse 97 98 Resp 22 22 B/P 152/58 Pulse Ox 99 100 100 O2 Delivery Nasal Cannula Nasal Cannula Nasal Cannula O2 Flow Rate 2.00 1.50 2.00 Intake and Output 05/03/16 00:00 Intake Total 1620 ml Output Total 700 ml Balance 920 ml Weight (Pounds): 223 Weight (Ounces): 2.0 Weight (Calculated Kilograms): 101.370067 Constitutional: No appears stated age, No AAO x 3, No apparent distress, No PERRL, No well-developed, No well-nourished, No other Respiratory: No accessory muscle use, No respiratory distress, No chest tender , No chest expansion is symmetric, No chest is bilaterally symmetric, No lungs clear to percussion, No lungs clear to auscultation, No crackles, rhonchiNo rales, No stridor, wheezingNo pleural rub, No other Cardiovascular: regular rate-rhythm Gastrointestional: No tender, No soft, No round, No distended, No pulsatile mass, No organomegaly, No guarding, No rebound, No tenderness, No hernia, No mass, No audible bowel sounds, No abnormal bowel sounds, No abdominal bruits, No spleenomegaly, No other Extremities: No normal range of motion, No non-tender, No normal inspection, No pedal edema, No calf tenderness, No normal capillary refill, No pelvis stable , No calf tenderness, No inflammation, No pedal edema, No slow capillary refill , No swelling, No other, No abrasion, No clubbing, No cyanosis, No ecchymosis, No laceration, No no lower extremity edema bilateral, No significant edema, No tenderness, No wound Neurologic/Psychiatric: No lime supervisor II-XII nml as tested, No no motor/sensory deficits, No alert, No normal mood/affect, No oriented x 3, No abnormal cerebellar tests, No abnormal lime supervisor II-XII, No abnormal gait, No aphasia, No EOM palsy, No facial droop, No motor weakness, No sensory deficit, No depressed affect, No disoriented x 3, No other, No grossly intact, No power is 5/5 both on sides Skin: No normal color, No warm/dry, No cyanosis, No cool, No diaphoresis, No damp, No ecchymosis, No jaundice, No mottled, No pallor, No rash, No tattoos/ piercings, No ulcerations, No rash on exposed areas, No ulcerations on exposed areas, No other Results/Procedures: Labs Laboratory Tests 05/03/16 03:31: Alanine Aminotransferase (ALT/SGPT) 9, Albumin 3.3, Alkaline Phosphatase 65, Anion Gap 11, Aspartate Amino Transf (AST/SGOT) 14, BUN/Creatinine Ratio 15, Basophils # (Auto) 0.0, Basophils (%) (Auto) 0, Blood Urea Nitrogen 27H, Calcium Level 8.7, Carbon Dioxide Level 21, Chloride Level 105, Creatinine 1.83H , Eosinophils # (Auto) 0.2, Eosinophils (%) (Auto) 2, Estimat Glomerular Filtration Rate 26, Glucose Level 112H, Hematocrit 29L, Hemoglobin 9.4L, Lymphocytes # (Auto) 2.0, Lymphocytes (%) (Auto) 15, Magnesium Level 2.9H, Mean Corpuscular Hemoglobin 27, Mean Corpuscular Hemoglobin Concent 33, Mean Corpuscular Volume 83, Mean Platelet Volume 8.9, Monocytes # (Auto) 1.3H, Monocytes (%) (Auto) 10, Neutrophils # (Auto) 9.8H, Neutrophils (%) (Auto) 73, Phosphorus Level 4.6, Platelet Count 371, Potassium Level 4.3, Red Blood Count 3.47L, Red Cell Distribution Width 16.0H, Sodium Level 137, Total Bilirubin 0.4 , Total Protein 6.7, White Blood Count 13.3H Microbiology 04/30/16 Blood Culture - Preliminary, Resulted No growth 04/30/16 MRSA Screen - Final, Complete MRSA not isolated 04/30/16 Urine Culture - Final, Complete A/P: Assessment/Dx: Pneumonia, AF Plan: This is a patient of Dr Glass. Has history of AF on eliquis. Presents with AF with RVR and pneumonia. Defer treatment of pneumonia/wheezing to Dr Aguilar. po cardizem 240mg. a morning EKG and telemetry shows regular organized atrial activity; however not clear if that is sinus or ectopic atrial rhythm. We will continue rate control and oral anticoagulation. Patient will follow with Dr. Glass as an outpatient on discharge. Vera ROMANO MD May 03, 2016 11:13
[2016-05-03] MEDS: guaiFENesin/DM (ROBITUSSIN DM) 10 ML UDC PO PRN (13:32)
[2016-05-03] MEDS: NS IV 1000 ML 1,000 ML IV SCH (16:26)
[2016-05-03] MEDS: traZODone 50 MG (DESYREL) TAB PO SCH (20:35)
[2016-05-03] MEDS: ATORVASTATIN 20 MG (LIPITOR) TABLET PO SCH (20:35)
[2016-05-04] VITALS: BP 127/41
[2016-05-04] MEDS: RT-ALBUTEROL/IPRATROPIUM 3 ML (DUONEB) VIAL INH SCH ×6 (02:09→22:13)
[2016-05-04 04:00] VITALS: BP 150/68
[2016-05-04 04:45] LABS: BASOPHILS % (AUTO) 0 % (0-10); EOSINOPHILS # (AUTO) 0.1 10^3/uL (0.0-0.3); EOSINOPHILS % (AUTO) 1 % (0-10); LYMPHOCYTES # (AUTO) 1.3 X 10^3 (1.0-4.0); LYMPHOCYTES % (AUTO) 11 % (12-44); MEAN CORPUSCULAR HEMOGLOBIN 27 PG (25-34); MEAN CORPUSCULAR HGB CONC 32 G/DL (32-36); MEAN CORPUSCULAR VOLUME 83 FL (80-99); MEAN PLATELET VOLUME 8.7 FL (7.4-10.4); MONOCYTES # (AUTO) 1.6 X 10^3 (0.0-1.0); MONOCYTES % (AUTO) 13 % (0-12); NEUTROPHILS # (AUTO) 8.7 X 10^3 (1.8-7.8); NEUTROPHILS % (AUTO) 75 % (42-75); PLATELET COUNT 325 10^3/uL (130-400); RED CELL DISTRIBUTION WIDTH 15.6 % (10.0-14.5); WHITE BLOOD COUNT 11.6 10^3/uL (4.3-11.0)
[2016-05-04 05:10] LABS: CALCIUM 8.4 MG/DL (8.5-10.1); CREATININE SERUM 1.88 MG/DL (0.60-1.30); POTASSIUM 4.3 MMOL/L (3.6-5.0)
[2016-05-04 08:00] VITALS: BP 156/61
[2016-05-04] MEDS: cefTRIAXone 1 GM/NS 50 ML IVPB IV SCH ×2 (09:21)
[2016-05-04] MEDS: LORATADINE (CLARITIN) 10 MG TAB PO SCH (09:21)
[2016-05-04] MEDS: APIXABAN 2.5 MG (ELIQUIS) TABLET PO SCH ×2 (09:21→20:55)
[2016-05-04] MEDS: amLODIPine 10 MG (NORVASC) TAB PO SCH (09:21)
[2016-05-04] MEDS: DILTIAZEM 240 MG (CARDIZEM CD) CAP PO SCH (09:21)
[2016-05-04] MEDS: BENZONATATE 100 MG (TESSALON) CAPSULE PO SCH ×3 (09:22→20:55)
--- NOTE | 2016-05-04 10:05 | Progress Note (SOAP) ---
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 THE PATIENT STATES THAT SHE FEELS FULL OF FLUID TODAY. SHE STATES THAT SHE DOES NOT YET FEEL READY FOR DISCHARGE, SHE FEELS WEAK AND DOES LIVE AT HOME WITH HER FAMILY AND IS NOT FEELING READY FOR THE ACTIVITY SHE WOULD BE DOING AT HOME FAR SELF CARE IS CONCERNED. Review of Systems General: No Chills, Fatigue Malaise HEENT: No Head Aches Pulmonary: Dyspnea Cough Cardiovascular: No: Chest Pain Gastrointestinal: No: Abdominal Pain, Nausea Genitourinary: No Dysuria Neurological: : WeaknessNo: Confusion Objective Exam Vital Signs Date Time Temp Pulse Resp B/P Pulse Ox O2 Delivery O2 Flow Rate FiO2 05/04/16 08:00 98.4 94 24 156/61 92 Nasal Cannula 1.00 05/04/16 07:04 94 Nasal Cannula 1.00 05/04/16 04:00 96.7 98 20 150/68 93 Nasal Cannula 1.00 05/04/16 02:09 93 Nasal Cannula 1.00 05/04/16 01:00 98 05/04/16 00:00 99.9 98 18 127/41 94 Nasal Cannula 1.00 05/03/16 22:13 92 Nasal Cannula 1.00 05/03/16 20:00 100.6 99 19 157/61 94 Nasal Cannula 2.00 05/03/16 19:00 99 05/03/16 18:42 94 Nasal Cannula 1.00 05/03/16 16:00 100.1 100 20 165/72 93 Nasal Cannula 2.00 05/03/16 15:27 93 05/03/16 15:10 93 Room Air 05/03/16 12:50 99.0 100 24 167/70 95 Nasal Cannula 2.00 I & O 05/04/16 07:00 Intake Total 2644 ml Output Total 1100 ml Balance 1544 ml Capillary Refill : Less Than 3 Seconds General Appearance: No Apparent Distress WD/WN HEENT: PERRL/EOMI Pharynx Normal Neck: Full Range of Motion Supple Respiratory: Chest Non Tender Decreased Breath Sounds Cardiovascular: Regular Rate, Rhythm Gastrointestinal: normal bowel sounds non tender soft no organomegaly no pulsatile mass Extremity: Pedal Edema Neurologic/Psychiatric: Alert Oriented x3 Skin: Warm/Dry Lymphatic: No Adenopathy Results Lab Laboratory Tests 1/7/17 04:12: Anion Gap 9, BUN/Creatinine Ratio 13, Basophils # (Auto) 0.0, Basophils (%) ( Auto) 0, Blood Urea Nitrogen 25H, Calcium Level 8.4L, Carbon Dioxide Level 22, Chloride Level 106, Creatinine 1.88H, Eosinophils # (Auto) 0.1, Eosinophils (%) (Auto) 1, Estimat Glomerular Filtration Rate 25, Glucose Level 104, Hematocrit 27L, Hemoglobin 8.5L, Lymphocytes # (Auto) 1.3, Lymphocytes (%) (Auto) 11L, Mean Corpuscular Hemoglobin 27, Mean Corpuscular Hemoglobin Concent 32, Mean Corpuscular Volume 83, Mean Platelet Volume 8.7, Monocytes # (Auto) 1.6H, Monocytes (%) (Auto) 13H, Neutrophils # (Auto) 8.7H, Neutrophils (%) (Auto) 75, Platelet Count 325, Potassium Level 4.3, Red Blood Count 3.20L, Red Cell Distribution Width 15.6H, Sodium Level 137, White Blood Count 11.6H Microbiology 04/30/16 Blood Culture - Preliminary, Resulted No growth 04/30/16 MRSA Screen - Final, Complete MRSA not isolated 04/30/16 Urine Culture - Final, Complete Assessment/Plan Assessment/Plan Assess & Plan/Chief Complaint ATRIAL FIBRILLATION ACUTE RENAL FAILURE PNEUMONIA HYPERTENSION PERIPHERAL EDEMA AFIB WITH RVR - RATE NOW CONTROLLED - PT ON CARDIZEM AND DR. PIERRE ADDED TOPROL TODAY FOR BETTER BLOOD PRESSURE CONTROL. CONTINUE WITH ELIQUIS AT LOWER DOSE DUE TO POOR RENAL FUNCTION. ACUTE RENAL FAILURE - MONITOR I/O AND CREATININE LEVELS, RENALLY ADJUST ALL MEDICATIONS. PNEUMONIA - ON ROCEPHIN, CONTINUE TREATMENT, CONTINUE MAT PROTOCOL WELL ADDITION OF ADVAIR TODAY. HTN - UNCONTROLLED - STOPPING NORVASC AND STARTING TOPROL. PERIPHERAL EDEMA - HOPEFULLY WILL IMPROVE WITH STOPPING OF THE NORVASC, MONITOR OUTPUT- WILL NOT ADD LASIX AT THIS TIME DUE TO RENAL FUNCTION. Diagnosis/Problems: Clinical Quality Measures DVT/VTE Risk/Contraindication: Risk Factor Score Per Nursin RFS Level Per Nursing on Admit: 4+=Very High Contraindications-Pharm: Other *list below* VJ MERCADO MD May 04, 2016 10:05
--- NOTE | 2016-05-04 11:01 | Cardiology Progress Note ---
Subjective Subjective/Events-last exam patient is laying down in bed, still complaining of shortness of breath, cough nonproductive and wheezing Review of Systems General: No Chills, No Night Sweats, No Fatigue, No Malaise, No Appetite, No Other HEENT: No Head Aches, No Visual Changes, No Eye Pain, No Ear Pain, No Dysphasia , No Sinus Congestion, No Post Nasal Drip, No Sore Throat, No Other Pulmonary: Dyspnea CoughNo Pleuritic Chest Pain, No Other Cardiovascular: : EdemaNo: Chest Pain, Lt Headedness, Orthopnea, Other, Palpitations, Paroxysmal Noc. Dyspnea Objective-Cardiology Exam Last Set of Vital Signs Vital Signs Capillary Refill : Less Than 3 Seconds I&O Intake and Output 05/04/16 00:00 Intake Total 2594 ml Output Total 1300 ml Balance 1294 ml Intake Oral 1594 ml IV Total 1000 ml Output Urine Total 1300 ml General: Alert, Oriented X3, Cooperative, Mild Distress HEENT: Atraumatic, PERRLA Neck: Supple, No JVD, No Thyromegaly Lungs: Normal Air Movement, Other (bilateral withdrawals, bilateral wheezing) Heart: Normal S1, Normal S2, No Murmurs, Other (irregular rhythm) Abdomen: Normal Bowel Sounds, Soft, No Tenderness, No Hepatosplenomegaly, No Masses Extremities: No Clubbing, No Cyanosis, Normal Pulses, No Tenderness/Swelling, Other (trace pedal edema) Skin: No Rashes, No Breakdown, No Significant Lesion Neuro: Normal Gait, Normal Speech, Strength at 5/5 X4 Ext, Normal Tone, Sensation Intact Psych/Mental Status: Mental Status NL, Mood NL Results Lab Laboratory Tests 05/04/16 04:12 A/P-Cardiology Admission Diagnosis Atrial fibrillation Pneumonia Dyspnea Hypertension Assessment/Plan Atrial fibrillation, controlled rate. Continue on Cardizem and Eliquis, monitor heart rate, managed by Dr. Horn Hypertension, poor control, I will discontinue Norvasc and use Toprol and evaluate tolerance and response especially with a baseline wheezing Pneumonia, shortness of breath, wheezing, managed by primary care physician. Still having some shortness of breath and wheezing, MAT peripheral Clinical Quality Measures DVT/VTE Risk/Contraindication: Risk Factor Score Per Nursin RFS Level Per Nursing on Admit: 4+=Very High Contraindications-Pharm: Other *list below* AMY PIERRE MD May 04, 2016 11:01
--- NOTE | 2016-05-04 11:57 | Physical Therapy Progress Note ---
Therapy Progress Note Patient refused physical therapy twice. She is very concerned about her foot, she says she did something to it in bed and has a lot of pain and cannot walk on it. The first time she states that she would be willing to get up to a chair but not right now and wanted to know if I could come back later. On the second attempt, the nurse tech was getting her back to bed from the commode and patient refused again, stating that her foot hurts and she doesn't want to get up again. JEROMY FRANK PT May 04, 2016 11:57
[2016-05-04 12:00] VITALS: BP 144/56
[2016-05-04] MEDS: RT-ADVAIR HFA 115/21 MCG PER PUFF IH SCH ×2 (13:09→18:56)
[2016-05-04] MEDS: guaiFENesin/DM (ROBITUSSIN DM) 10 ML UDC PO PRN (15:48)
[2016-05-04 16:00] VITALS: BP 130/72
[2016-05-04] MEDS: NS IV 1000 ML 1,000 ML IV SCH (16:15)
[2016-05-04 19:57] VITALS: BP 165/71
[2016-05-04] MEDS: ALPRAZolam 0.25 MG (XANAX) TAB PO PRN (20:54)
[2016-05-04] MEDS: ATORVASTATIN 20 MG (LIPITOR) TABLET PO SCH (20:55)
[2016-05-04] MEDS: traZODone 50 MG (DESYREL) TAB PO SCH (20:55)
[2016-05-04] MEDS ORDERED: AZITHROMYCIN IV ADD-VANTAGE 500 MG IV ONE (21:11)
[2016-05-04] MEDS ORDERED: SODIUM CHLORIDE (ADD-VANTAGE) 250 ML ONE (21:12)
[2016-05-04] MEDS ORDERED: ACETAMINOPHEN 500 MG TAB (TYLENOL) ONE (21:12)
[2016-05-04] MEDS ORDERED: IBUPROFEN TABLET 200 MG TAB PO PRN (21:15)
[2016-05-04] MEDS: AZITHROMYCIN IV ADD-VANTAGE 500 MG in SODIUM CHLORIDE (ADD-VANTAGE) 250 ML IV SCH (21:20)
[2016-05-04] MEDS: ACETAMINOPHEN 500 MG TAB (TYLENOL) PO PRN (21:21)
[2016-05-05] VITALS: BP 117/64
[2016-05-05] MEDS: RT-ALBUTEROL/IPRATROPIUM 3 ML (DUONEB) VIAL INH SCH ×6 (02:15→22:24)
[2016-05-05 04:00] VITALS: BP 128/46
[2016-05-05 05:04] LABS: BASOPHILS % (AUTO) 0 % (0-10); EOSINOPHILS # (AUTO) 0.1 10^3/uL (0.0-0.3); EOSINOPHILS % (AUTO) 1 % (0-10); LYMPHOCYTES # (AUTO) 1.4 X 10^3 (1.0-4.0); LYMPHOCYTES % (AUTO) 13 % (12-44); MEAN CORPUSCULAR HEMOGLOBIN 27 PG (25-34); MEAN CORPUSCULAR HGB CONC 32 G/DL (32-36); MEAN CORPUSCULAR VOLUME 83 FL (80-99); MEAN PLATELET VOLUME 8.7 FL (7.4-10.4); MONOCYTES # (AUTO) 1.3 X 10^3 (0.0-1.0); MONOCYTES % (AUTO) 12 % (0-12); NEUTROPHILS # (AUTO) 8.1 X 10^3 (1.8-7.8); NEUTROPHILS % (AUTO) 74 % (42-75); PLATELET COUNT 323 10^3/uL (130-400); RED BLOOD COUNT 3.08 10^6/uL (4.35-5.85); RED CELL DISTRIBUTION WIDTH 15.4 % (10.0-14.5); WHITE BLOOD COUNT 10.9 10^3/uL (4.3-11.0)
[2016-05-05 05:35] LABS: CREATININE SERUM 1.93 MG/DL (0.60-1.30); POTASSIUM 4.4 MMOL/L (3.6-5.0)
[2016-05-05] MEDS: RT-ADVAIR HFA 115/21 MCG PER PUFF IH SCH ×2 (07:13→18:38)
[2016-05-05 07:30] VITALS: BP 156/90
[2016-05-05] MEDS: cefTRIAXone 1 GM/NS 50 ML IVPB IV SCH ×2 (09:03)
[2016-05-05] MEDS: DILTIAZEM 240 MG (CARDIZEM CD) CAP PO SCH (09:03)
[2016-05-05] MEDS: BENZONATATE 100 MG (TESSALON) CAPSULE PO SCH ×3 (09:04→20:09)
[2016-05-05] MEDS: APIXABAN 2.5 MG (ELIQUIS) TABLET PO SCH ×2 (09:04→20:11)
[2016-05-05] MEDS: LORATADINE (CLARITIN) 10 MG TAB PO SCH (09:04)
--- NOTE | 2016-05-05 10:11 | Progress Note (SOAP) ---
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 THE PATIENT STATES THAT SHE IS HAVING WORSENING SHORTNESS OF BREATH. SHE STATES THAT SHE IS HAVING INCREASED COUGHING. Review of Systems General: Fatigue Malaise HEENT: No Head Aches Pulmonary: Dyspnea Cough Cardiovascular: No: Chest Pain Gastrointestinal: No: Abdominal Pain, Nausea Genitourinary: No Dysuria Neurological: : Weakness Objective Exam Vital Signs Date Time Temp Pulse Resp B/P Pulse Ox O2 Delivery O2 Flow Rate FiO2 05/05/16 08:00 Room Air 05/05/16 07:30 98.9 91 18 156/90 92 Nasal Cannula 1.00 05/05/16 07:16 91 Nasal Cannula 1.00 05/05/16 07:13 91 Nasal Cannula 1.00 05/05/16 04:00 96.1 81 20 128/46 95 Nasal Cannula 1.00 05/05/16 02:45 72 05/05/16 02:16 93 Nasal Cannula 1.00 05/05/16 01:00 99 05/05/16 00:00 98.0 100 18 117/64 93 Nasal Cannula 1.00 05/04/16 23:00 99.6 05/04/16 22:14 Nasal Cannula 1.00 05/04/16 22:00 100.4 05/04/16 22:00 Room Air 05/04/16 21:10 101.4 05/04/16 19:57 97.8 105 22 165/71 94 Nasal Cannula 1.00 05/04/16 19:01 Nasal Cannula 1.00 05/04/16 19:00 110 05/04/16 18:56 93 Nasal Cannula 1.00 05/04/16 16:22 98.7 05/04/16 16:00 98.7 97 22 130/72 93 Nasal Cannula 1.00 05/04/16 15:47 98.7 05/04/16 15:18 94 Nasal Cannula 1.00 05/04/16 12:00 98.7 85 24 144/56 97 Nasal Cannula 1.00 05/04/16 11:01 94 Nasal Cannula 1.00 I & O 05/05/16 07:00 Intake Total 1250 ml Output Total 1025 ml Balance 225 ml Capillary Refill : Less Than 3 Seconds General Appearance: WD/WN Mild Distress HEENT: PERRL/EOMI Pharynx Normal Neck: Full Range of Motion Supple Respiratory: Chest Non Tender Decreased Breath Sounds Rhonci Wheezing Cardiovascular: Regular Rate, Rhythm Gastrointestinal: normal bowel sounds non tender soft no organomegaly no pulsatile mass Extremity: Pedal Edema Neurologic/Psychiatric: Alert Oriented x3 No Motor/Sensory Deficits Normal Mood/Affect Skin: Warm/Dry Results Lab Laboratory Tests 05/05/16 04:50: Anion Gap 9, BUN/Creatinine Ratio 15, Basophils # (Auto) 0.0, Basophils (%) ( Auto) 0, Blood Urea Nitrogen 28H, Calcium Level 8.0L, Carbon Dioxide Level 20L, Chloride Level 104, Creatinine 1.93H, Eosinophils # (Auto) 0.1, Eosinophils (%) (Auto) 1, Estimat Glomerular Filtration Rate 24, Glucose Level 118H, Hematocrit 26L, Hemoglobin 8.3L, Lymphocytes # (Auto) 1.4, Lymphocytes (%) (Auto) 13, Mean Corpuscular Hemoglobin 27, Mean Corpuscular Hemoglobin Concent 32, Mean Corpuscular Volume 83, Mean Platelet Volume 8.7, Monocytes # (Auto) 1.3H, Monocytes (%) (Auto) 12, Neutrophils # (Auto) 8.1H, Neutrophils (%) (Auto) 74, Platelet Count 323, Potassium Level 4.4, Red Blood Count 3.08L, Red Cell Distribution Width 15.4H, Sodium Level 133L, White Blood Count 10.9 Microbiology 04/30/16 Blood Culture - Preliminary, Resulted No growth 04/30/16 MRSA Screen - Final, Complete MRSA not isolated 04/30/16 Urine Culture - Final, Complete Assessment/Plan Assessment/Plan Assess & Plan/Chief Complaint ATRIAL FIBRILLATION ACUTE RENAL FAILURE PNEUMONIA HYPERTENSION PERIPHERAL EDEMA AFIB WITH RVR - RATE NOW CONTROLLED - PT ON CARDIZEM AND DR. PIERRE ADDED TOPROL TODAY FOR BETTER BLOOD PRESSURE CONTROL. CONTINUE WITH ELIQUIS AT LOWER DOSE DUE TO POOR RENAL FUNCTION. ACUTE RENAL FAILURE - MONITOR I/O AND CREATININE LEVELS, RENALLY ADJUST ALL MEDICATIONS. PNEUMONIA - ON ROCEPHIN, CONTINUE TREATMENT, CONTINUE MAT PROTOCOL WELL ADDITION OF ADVAIR TODAY. - START SOLUMEDROL TODAY HTN - UNCONTROLLED - STOPPING NORVASC AND STARTING TOPROL. PERIPHERAL EDEMA - HOPEFULLY WILL IMPROVE WITH STOPPING OF THE NORVASC, MONITOR OUTPUT- WILL NOT ADD LASIX AT THIS TIME DUE TO RENAL FUNCTION. Diagnosis/Problems: Clinical Quality Measures DVT/VTE Risk/Contraindication: Risk Factor Score Per Nursin RFS Level Per Nursing on Admit: 4+=Very High Contraindications-Pharm: Other *list below* VJ MERCADO MD May 05, 2016 10:11
--- NOTE | 2016-05-05 10:16 | Diagnostic Imaging Report ---
INDICATION: Pneumonia COMPARISON: 05/03/16 FINDINGS: Frontal and lateral views of the chest demonstrate minimal infiltrate primarily in the posterior lung bases. There is no pneumothorax. Trace effusion is seen in the left base. Heart is prominent without pulmonary edema. There is no pneumothorax. Osseous structures stable. IMPRESSION: Minimal basilar infiltrate with trace effusion left costophrenic angle. Dictated by: Dictated on workstation # [id number]
[2016-05-05] MEDS: AZITHROMYCIN IV ADD-VANTAGE 500 MG in SODIUM CHLORIDE (ADD-VANTAGE) 250 ML IV SCH (10:23)
--- NOTE | 2016-05-05 10:46 | Cardiology Progress Note ---
Subjective Subjective/Events-last exam patient is laying down in bed, still having shortness of breath, cough, had fever last night Review of Systems General: No Chills, No Night Sweats, No Fatigue, No Malaise, No Appetite, No Other HEENT: No Head Aches, No Visual Changes, No Eye Pain, No Ear Pain, No Dysphasia , No Sinus Congestion, No Post Nasal Drip, No Sore Throat, No Other Pulmonary: Dyspnea Cough Pleuritic Chest PainNo Other Cardiovascular: No: Chest Pain, Edema, Lt Headedness, Orthopnea, Other, Palpitations, Paroxysmal Noc. Dyspnea Objective-Cardiology Exam Last Set of Vital Signs Vital Signs 05/05/16 05/05/16 07:30 10:40 Temp 98.9 Pulse 91 Resp 18 B/P 156/90 Pulse Ox 92 O2 Delivery Nasal Cannula O2 Flow Rate 1.00 Capillary Refill : Less Than 3 Seconds I&O Intake and Output 05/05/16 00:00 Intake Total 900 ml Output Total 800 ml Balance 100 ml Intake Oral 850 ml IV Total 50 ml Output Urine Total 800 ml General: Alert, Oriented X3, Cooperative, Mild Distress HEENT: Atraumatic, PERRLA Neck: Supple, No JVD, No Thyromegaly Lungs: Normal Air Movement, Other (bilateral rhonchi, wheezing) Heart: Normal S1, Normal S2, No Murmurs, Other (irregular rhythm) Abdomen: Normal Bowel Sounds, Soft, No Tenderness, No Hepatosplenomegaly, No Masses Extremities: No Clubbing, No Cyanosis, Normal Pulses, No Tenderness/Swelling, Other (trace pedal edema) Skin: No Rashes, No Breakdown, No Significant Lesion Neuro: Normal Gait, Normal Speech, Strength at 5/5 X4 Ext, Normal Tone, Sensation Intact Psych/Mental Status: Mental Status NL, Mood NL Results Lab Laboratory Tests 05/05/16 04:50 A/P-Cardiology Admission Diagnosis Atrial fibrillation Pneumonia Dyspnea Hypertension Assessment/Plan Atrial fibrillation, controlled rate, continue current medications and monitor. Hypertension, started on Toprol instead of Norvasc, continue to monitor blood pressure. Pneumonia, shortness of breath, wheezing, managed by primary care physician. Still having some shortness of breath and wheezing, MAT protocol, started on Rocephin and Zithromax. Continue to monitor Acute on chronic renal insufficiency, worsening renal function, discontinue Ultram and monitor renal function Clinical Quality Measures DVT/VTE Risk/Contraindication: Risk Factor Score Per Nursin RFS Level Per Nursing on Admit: 4+=Very High Contraindications-Pharm: Other *list below* AMY PIERRE MD May 05, 2016 10:46
[2016-05-05 11:50] VITALS: BP 139/65
[2016-05-05] MEDS ORDERED: methylPREDNISolone 40 MG/ML (Solu-MEDROL) VIAL IV ONE (12:30)
[2016-05-05] MEDS: DICLOFENAC 1% GEL 100 GM (VOLTAREN) TUBE TOP SCH ×3 (13:15→20:12)
[2016-05-05] MEDS: NS IV 1000 ML 1,000 ML IV SCH (15:35)
[2016-05-05 16:00] VITALS: BP 133/55
[2016-05-05] MEDS: methylPREDNISolone 40 MG/ML (Solu-MEDROL) VIAL IV SCH ×2 (17:20→23:20)
[2016-05-05 19:27] VITALS: BP 132/57
[2016-05-05] MEDS ORDERED: SUCRALFATE 1 GM (CARAFATE) TAB PO PRN (20:00)
[2016-05-05] MEDS: traZODone 50 MG (DESYREL) TAB PO SCH (20:09)
[2016-05-05] MEDS: ATORVASTATIN 20 MG (LIPITOR) TABLET PO SCH (20:09)
[2016-05-05] MEDS ORDERED: FAMOTIDINE 20 MG (PEPCID) TABLET PO SCH (21:00)
[2016-05-06] VITALS: BP 117/55
[2016-05-06] MEDS: RT-ALBUTEROL/IPRATROPIUM 3 ML (DUONEB) VIAL INH SCH ×5 (02:35→20:10)
[2016-05-06 04:00] VITALS: BP 121/68
[2016-05-06 05:18] LABS: BASOPHILS % (AUTO) 0 % (0-10); EOSINOPHILS % (AUTO) 0 % (0-10); LYMPHOCYTES # (AUTO) 0.3 X 10^3 (1.0-4.0); LYMPHOCYTES % (AUTO) 5 % (12-44); MEAN CORPUSCULAR HEMOGLOBIN 27 PG (25-34); MEAN CORPUSCULAR HGB CONC 33 G/DL (32-36); MEAN CORPUSCULAR VOLUME 82 FL (80-99); MEAN PLATELET VOLUME 9.2 FL (7.4-10.4); MONOCYTES # (AUTO) 0.1 X 10^3 (0.0-1.0); MONOCYTES % (AUTO) 2 % (0-12); NEUTROPHILS # (AUTO) 6.2 X 10^3 (1.8-7.8); NEUTROPHILS % (AUTO) 94 % (42-75); PLATELET COUNT 310 10^3/uL (130-400); RED BLOOD COUNT 2.97 10^6/uL (4.35-5.85); WHITE BLOOD COUNT 6.6 10^3/uL (4.3-11.0)
[2016-05-06] MEDS: methylPREDNISolone 40 MG/ML (Solu-MEDROL) VIAL IV SCH ×4 (05:36→23:44)
[2016-05-06 05:38] LABS: CALCIUM 8.1 MG/DL (8.5-10.1); CREATININE SERUM 2.8 MG/DL (0.60-1.30); POTASSIUM 4.8 MMOL/L (3.6-5.0)
[2016-05-06 05:56] LABS: ANISOCYTOSIS SLIGHT; BAND NEUTROPHILS 0 %; BASOPHILS % (MANUAL) 0 %; EOSINOPHILS % (MANUAL) 2 %; HYPOCHROMASIA SLIGHT; LYMPHOCYTES % (MANUAL) 4 %; NEUTROPHILS % (MANUAL) 94 %; POIKILOCYTOSIS SLIGHT; POLYCHROMASIA SLIGHT
--- NOTE | 2016-05-06 07:54 | Progress Note (SOAP) ---
Subjective Subjective/Events-last exam patient feeling better today. Congestion and chest less. Patient's GFR 16 acute renal failure. To give some IV fluids 5 percent dextrose in water. Pneumonia. Hypertension history. Atrial fibrillation. Sodium 130 hyponatremia. Stop ibuprofen Objective Exam Vital Signs Date Time Temp Pulse Resp B/P Pulse Ox O2 Delivery O2 Flow Rate FiO2 05/06/16 04:00 96.0 71 20 121/68 97 Nasal Cannula 1.00 05/06/16 02:37 94 Nasal Cannula 1.00 05/06/16 01:00 70 05/06/16 00:00 96.8 76 20 117/55 95 Nasal Cannula 1.00 05/05/16 22:24 96 Nasal Cannula 1.00 05/05/16 20:15 Room Air 05/05/16 19:27 97.8 96 24 132/57 93 Nasal Cannula 1.00 05/05/16 19:00 96 05/05/16 18:41 Nasal Cannula 1.00 05/05/16 18:38 92 Nasal Cannula 1.00 05/05/16 16:00 98.9 79 20 133/55 95 Nasal Cannula 1.00 05/05/16 14:28 91 Nasal Cannula 1.00 05/05/16 11:50 98.9 70 20 139/65 95 Nasal Cannula 1.00 05/05/16 10:40 92 Nasal Cannula 1.00 05/05/16 08:00 Room Air I & O 05/06/16 07:00 Intake Total 2274 ml Output Total 900 ml Balance 1374 ml Capillary Refill : Less Than 3 Seconds General Appearance: No Apparent Distress WD/WN HEENT: Normal ENT Inspection Neck: Full Range of Motion Normal Inspection Respiratory: Decreased Breath Sounds Other (congestion was) Cardiovascular: Irregularly Irregular Gastrointestinal: non tender soft Results Lab Laboratory Tests 05/06/16 04:30 Laboratory Tests 05/06/16 04:30: Anion Gap 12, Anisocytosis SLIGHT, BUN/Creatinine Ratio 15, Band Neutrophils 0, Basophils # (Auto) 0.0, Basophils % (Manual) 0, Basophils (%) (Auto) 0, Blood Urea Nitrogen 41H, Calcium Level 8.1L, Carbon Dioxide Level 17L, Chloride Level 101, Creatinine 2.80H, Eosinophils # (Auto) 0.0, Eosinophils % (Manual) 2, Eosinophils (%) (Auto) 0, Estimat Glomerular Filtration Rate 16, Glucose Level 248H, Hematocrit 24L, Hemoglobin 7.9L, Hypochromasia SLIGHT, Lymphocytes # (Auto ) 0.3L, Lymphocytes % (Manual) 4, Lymphocytes (%) (Auto) 5L, Macrocytosis SLIGHT , Mean Corpuscular Hemoglobin 27, Mean Corpuscular Hemoglobin Concent 33, Mean Corpuscular Volume 82, Mean Platelet Volume 9.2, Monocytes # (Auto) 0.1, Monocytes (%) (Auto) 2, Neutrophils # (Auto) 6.2, Neutrophils % (Manual) 94, Neutrophils (%) (Auto) 94H, Platelet Count 310, Poikilocytosis SLIGHT, Polychromasia SLIGHT, Potassium Level 4.8, Red Blood Count 2.97L, Red Cell Distribution Width 15.0H, Sodium Level 130L, White Blood Count 6.6 Microbiology 04/30/16 Blood Culture - Preliminary, Resulted No growth 04/30/16 MRSA Screen - Final, Complete MRSA not isolated 04/30/16 Urine Culture - Final, Complete Assessment/Plan Assessment/Plan Assess & Plan/Chief Complaint atrial A. fib with RVR. Bronchitis. Patient improving in chest but still has problems. . 05/03/16. Patient converted to sinus rhythm. Patient still has bronchitis slowly improving. White blood cell count 13,000. From a chest standpoint patient not ready for discharge. Yet. . 05/06/16. Atrial fib with RVR. Bronchitis. Pneumonia. Anemia. Acute renal failure. To give some fluid Diagnosis/Problems: Clinical Quality Measures DVT/VTE Risk/Contraindication: Risk Factor Score Per Nursin RFS Level Per Nursing on Admit: 4+=Very High Contraindications-Pharm: Other *list below* WILLARD LOPEZ DO May 06, 2016 07:54
[2016-05-06 07:59] VITALS: BP 144/64
[2016-05-06] MEDS: APIXABAN 2.5 MG (ELIQUIS) TABLET PO SCH ×2 (09:51→20:40)
[2016-05-06] MEDS: LORATADINE (CLARITIN) 10 MG TAB PO SCH (09:51)
[2016-05-06] MEDS: AZITHROMYCIN IV ADD-VANTAGE 500 MG in SODIUM CHLORIDE (ADD-VANTAGE) 250 ML IV SCH (09:51)
[2016-05-06] MEDS: DILTIAZEM 240 MG (CARDIZEM CD) CAP PO SCH (09:51)
[2016-05-06] MEDS: BENZONATATE 100 MG (TESSALON) CAPSULE PO SCH ×3 (09:52→20:39)
[2016-05-06] MEDS: RT-ADVAIR HFA 115/21 MCG PER PUFF IH SCH ×2 (09:58→20:09)
--- NOTE | 2016-05-06 10:42 | Cardiology Progress Note ---
Subjective Subjective/Events-last exam Patient is sitting up in chair, complaining of generalized weakness. Denies any CP or dyspnea. Review of Systems General: No Night Sweats, Fatigue MalaiseNo Appetite HEENT: No Visual Changes, No Dysphasia, No Sore Throat Pulmonary: No Dyspnea, No Cough Cardiovascular: : EdemaNo: Chest Pain, Palpitations Gastrointestinal: No: Abdominal Pain, Nausea, Vomiting Genitourinary: No Dysuria, No Frequency Musculoskeletal: No: back pain, neck pain Neurological: No: Change in speech, Confusion, Numbness, Weakness Objective-Cardiology Exam Last Set of Vital Signs Vital Signs 05/06/16 05/06/16 07:59 09:58 Temp 97.6 Pulse 72 Resp 18 B/P 144/64 Pulse Ox 93 O2 Delivery Nasal Cannula O2 Flow Rate 1.00 Capillary Refill : Less Than 3 Seconds I&O Intake and Output 05/06/16 00:00 Intake Total 2724 ml Output Total 1175 ml Balance 1549 ml Intake Oral 1570 ml IV Total 1154 ml Output Urine Total 1175 ml # Voids 2 General: Alert, Oriented X3, Cooperative, Mild Distress HEENT: Atraumatic, PERRLA Neck: Supple, No JVD, No Thyromegaly Lungs: Normal Air Movement, Other (bilateral rhonchi, wheezing) Heart: Normal S1, Normal S2, No Murmurs, Other (irregular rhythm) Abdomen: Normal Bowel Sounds, Soft, No Tenderness, No Hepatosplenomegaly, No Masses Extremities: No Clubbing, No Cyanosis, Normal Pulses, No Tenderness/Swelling, Other (trace pedal edema) Skin: No Rashes, No Breakdown, No Significant Lesion Neuro: Normal Gait, Normal Speech, Strength at 5/5 X4 Ext, Normal Tone, Sensation Intact Psych/Mental Status: Mental Status NL, Mood NL Results Lab Laboratory Tests 05/06/16 04:30 A/P-Cardiology Admission Diagnosis Atrial fibrillation Pneumonia Dyspnea Hypertension Assessment/Plan Atrial fibrillation, controlled rate, continue current medications and monitor. Hypertension, started on Toprol instead of Norvasc, continue to monitor blood pressure. Pneumonia, shortness of breath, wheezing, managed by primary care physician. Still having some shortness of breath and wheezing, MAT protocol, started on Rocephin and Zithromax. Continue to monitor Acute on chronic renal insufficiency, worsening renal function, I will start patient on IV NS at 100cc/hr. Reeval renal function in morning. Clinical Quality Measures DVT/VTE Risk/Contraindication: Risk Factor Score Per Nursin RFS Level Per Nursing on Admit: 4+=Very High Contraindications-Pharm: Other *list below* ERIKA COREY May 06, 2016 10:42
--- NOTE | 2016-05-06 10:44 | Physical Therapy Daily Note ---
PT Daily Note-Current Subjective Patient agrees to PT. Patient reports she is very tired today. Pain Numeric Pain Scale: 0-No Pain Location: No Pain Reported Mental Status Patient Orientation: Normal For Age Attachments: Oxygen, IV Transfers Functional [place] Measure 0=Not Assessed/NA 4=Minimal Assistance 1=Total Assistance 5=Supervision or Setup 2=Maximal Assistance 6=Modified [place] 3=Moderate Assistance 7=Complete IndependenceIRFPAI Quality Coding Scale 6 Independent with activity with or without an assistive device 5 Patient requires set up or clean up by helper. Patient completes activity by themselves 4 Supervision or touching assist (CGA). [place] provide cues , steadying assist 3 The helper provides less than half the effort to complete the activity 2 The helper provides more than half the effort to complete the activity 1 Dependent. The helper does all the effort to complete an activity 7 Patient refused to complete or attempt activity 9 The patient did not perform the activity before the current illness or injury 88 Not attempted due to Medical conditions or safety concerns Transfers (B, C, W/C) (FIM): 5 Scootin Sit to/from Stand: 5 Gait Training Gait (FIM): 1 Distance (FIM): 1=up to 49 ft Distance: 45' Gait Level of Assist: 5 Gait Assistive Device: FWW Patient is impulsive to sit due to fatigue and inactive PLOF Assessment Patient tolerated minimal activity and ceased treatment once needs are met. PT to increase as patient tolerates. PT [facility] Goals Primary Care Md Goals PT Primary Care Md Goals Time Frame: May 16, 2016 Transfers (B,C,W/C) (FIM): 6 Gait (FIM): 2 Gait distance (FIM): 3=951-60 ft Distance: 100' Gait Level of Assist: 6 Gait Assistive Device: FWW PT Plan Treatment/Plan Treatment Plan: Continue Plan of Care Treatment Plan: Education, Functional Activity Raul, Functional Strength, Gait , Safety, Therapeutic Exercise, Transfers Treatment Duration: May 09, 2016 Visits Per Week: 5-6 Time/GCodes Time In: 1015 Time Out: 1025 Total Billed Treatment Time: 10 Total Billed Treatment 1 visit GT 10 min MATEUS MARK PT May 06, 2016 10:44
[2016-05-06 12:17] VITALS: BP 159/66
--- NOTE | 2016-05-06 12:42 | Cardiology Progress Note ---
Subjective Subjective/Events-last exam patient is sitting in bed, feeling better, less dyspneic. Review of Systems General: No Chills, No Night Sweats, No Fatigue, No Malaise, No Appetite, No Other HEENT: No Head Aches, No Visual Changes, No Eye Pain, No Ear Pain, No Dysphasia , No Sinus Congestion, No Post Nasal Drip, No Sore Throat, No Other Pulmonary: DyspneaNo Cough, No Pleuritic Chest Pain, No Other Cardiovascular: : EdemaNo: Chest Pain, Lt Headedness, Orthopnea, Other, Palpitations, Paroxysmal Noc. Dyspnea Objective-Cardiology Exam Last Set of Vital Signs Vital Signs 05/06/16 12:17 Temp 96.4 Pulse 78 Resp 20 B/P 159/66 Pulse Ox 98 O2 Delivery Nasal Cannula O2 Flow Rate 1.00 Capillary Refill : Less Than 3 Seconds I&O Intake and Output 05/05/16 23:59 Intake Total 2724 ml Output Total 1175 ml Balance 1549 ml Intake Oral 1570 ml IV Total 1154 ml Output Urine Total 1175 ml # Voids 2 General: Alert, Oriented X3, Cooperative, Mild Distress HEENT: Atraumatic, PERRLA Neck: Supple, No JVD, No Thyromegaly Lungs: Normal Air Movement, Other (bilateral rhonchi, wheezing) Heart: Normal S1, Normal S2, No Murmurs, Other (irregular rhythm) Abdomen: Normal Bowel Sounds, Soft, No Tenderness, No Hepatosplenomegaly, No Masses Extremities: No Clubbing, No Cyanosis, Normal Pulses, No Tenderness/Swelling, Other (trace pedal edema) Skin: No Rashes, No Breakdown, No Significant Lesion Neuro: Normal Gait, Normal Speech, Strength at 5/5 X4 Ext, Normal Tone, Sensation Intact Psych/Mental Status: Mental Status NL, Mood NL Results Lab Laboratory Tests 05/06/16 04:30 A/P-Cardiology Admission Diagnosis Atrial fibrillation Pneumonia Dyspnea Hypertension Assessment/Plan Atrial fibrillation, controlled rate, continue current medications and monitor. Hypertension, tolerating Toprol and Cardizem well. Continue to monitor blood pressure Mild hyponatremia, worsening renal function, started on normal saline Pneumonia, shortness of breath, wheezing, managed by primary care physician. Still having some shortness of breath and wheezing, MAT protocol, started on Rocephin and Zithromax. Continue to monitor Acute on chronic renal insufficiency, worsening renal function, I will start patient on IV NS at 100cc/hr and monitor renal function Clinical Quality Measures DVT/VTE Risk/Contraindication: Risk Factor Score Per Nursin RFS Level Per Nursing on Admit: 4+=Very High Contraindications-Pharm: Other *list below* AMY PIERRE MD May 06, 2016 12:42
[2016-05-06] MEDS: NS IV 1000 ML 1,000 ML IV SCH ×3 (13:04→19:01)
[2016-05-06 16:26] VITALS: BP 118/73
[2016-05-06] MEDS: guaiFENesin/DM (ROBITUSSIN DM) 10 ML UDC PO PRN (17:19)
[2016-05-06 20:00] VITALS: BP 155/65
[2016-05-06] MEDS: traZODone 50 MG (DESYREL) TAB PO SCH (20:40)
[2016-05-06] MEDS: ATORVASTATIN 20 MG (LIPITOR) TABLET PO SCH (20:40)
[2016-05-06] MEDS ORDERED: FAMOTIDINE 20 MG (PEPCID) TABLET PO SCH (21:00)
[2016-05-06] MEDS: ACETAMINOPHEN 500 MG TAB (TYLENOL) PO PRN (21:59)
[2016-05-07] VITALS: BP 134/57
[2016-05-07 04:00] VITALS: BP 148/68
[2016-05-07] MEDS: NS IV 1000 ML 1,000 ML IV SCH (04:36)
[2016-05-07 05:08] LABS: BASOPHILS % (AUTO) 0 % (0-10); EOSINOPHILS % (AUTO) 0 % (0-10); LYMPHOCYTES # (AUTO) 0.4 X 10^3 (1.0-4.0); LYMPHOCYTES % (AUTO) 4 % (12-44); MEAN CORPUSCULAR HEMOGLOBIN 27 PG (25-34); MEAN CORPUSCULAR HGB CONC 33 G/DL (32-36); MEAN CORPUSCULAR VOLUME 81 FL (80-99); MEAN PLATELET VOLUME 9.2 FL (7.4-10.4); MONOCYTES # (AUTO) 0.3 X 10^3 (0.0-1.0); MONOCYTES % (AUTO) 4 % (0-12); NEUTROPHILS # (AUTO) 8.8 X 10^3 (1.8-7.8); NEUTROPHILS % (AUTO) 92 % (42-75); PLATELET COUNT 341 10^3/uL (130-400); RED BLOOD COUNT 2.84 10^6/uL (4.35-5.85); RED CELL DISTRIBUTION WIDTH 15.1 % (10.0-14.5); WHITE BLOOD COUNT 9.5 10^3/uL (4.3-11.0)
[2016-05-07 05:26] LABS: BILIRUBIN,TOTAL 0.2 MG/DL (0.1-1.0); CALCIUM 7.9 MG/DL (8.5-10.1); CREATININE SERUM 3.19 MG/DL (0.60-1.30); TOTAL PROTEIN 6.2 G/DL (6.4-8.2)
[2016-05-07] MEDS: methylPREDNISolone 40 MG/ML (Solu-MEDROL) VIAL IV SCH (05:28)
--- NOTE | 2016-05-07 07:34 | Diagnostic Imaging Report ---
INDICATION: Cough and congestion. Comparison with 05/05/2016. FINDINGS: There does appear to be mild infiltrate developing in the right lung base when compared with previous study. Left lung is clear. Heart remains upper limits of normal. No evidence of pulmonary edema. No pneumothorax or pleural effusion. IMPRESSION: Findings suggesting developing right lower lobe infiltrate. Would consider PA and lateral upright films. Dictated by: Dictated on workstation # [id number]
[2016-05-07] MEDS: RT-ALBUTEROL/IPRATROPIUM 3 ML (DUONEB) VIAL INH SCH (07:51)
[2016-05-07] MEDS: RT-ADVAIR HFA 115/21 MCG PER PUFF IH SCH (07:52)
--- NOTE | 2016-05-07 07:52 | Progress Note (SOAP) ---
Subjective Subjective/Events-last exam GFR 14. Sodium 128. Patient feeling better. Spoke to patient about dialysis. Patient has trouble walking around. Bronchitis better. A. fib with RVR better Objective Exam Vital Signs Date Time Temp Pulse Resp B/P Pulse Ox O2 Delivery O2 Flow Rate FiO2 05/07/16 04:00 96.7 74 18 148/68 98 Nasal Cannula 1.00 05/07/16 01:00 68 05/07/16 00:00 97.2 74 18 134/57 95 Nasal Cannula 1.00 05/06/16 20:30 90 Nasal Cannula 2.00 05/06/16 20:17 Nasal Cannula 2.00 05/06/16 20:11 90 Nasal Cannula 2.00 05/06/16 20:00 98.5 77 18 155/65 96 Nasal Cannula 1.00 05/06/16 19:00 72 05/06/16 16:26 97.1 80 18 118/73 98 Nasal Cannula 1.00 05/06/16 14:34 96 Nasal Cannula 1.00 05/06/16 14:34 96 05/06/16 12:47 81 05/06/16 12:17 96.4 78 20 159/66 98 Nasal Cannula 1.00 05/06/16 09:58 93 Nasal Cannula 1.00 05/06/16 08:00 98 Nasal Cannula 1.00 05/06/16 07:59 97.6 72 18 144/64 97 Nasal Cannula 1.00 I & O 05/07/16 07:00 Intake Total 3060 ml Output Total 450 ml Balance 2610 ml Capillary Refill : Less Than 3 Seconds General Appearance: No Apparent Distress WD/WN HEENT: Normal ENT Inspection Neck: Normal Inspection Respiratory: Chest Non Tender Normal Breath Sounds No Accessory Muscle Use No Respiratory Distress Cardiovascular: No Murmur Gastrointestinal: non tender soft Results Lab Laboratory Tests 05/07/16 04:40 Laboratory Tests 05/07/16 04:40: Alanine Aminotransferase (ALT/SGPT) 15, Albumin 3.0L, Alkaline Phosphatase 58, Anion Gap 9, Aspartate Amino Transf (AST/SGOT) 18, BUN/Creatinine Ratio 16, Basophils # (Auto) 0.0, Basophils (%) (Auto) 0, Blood Urea Nitrogen 51H, Calcium Level 7.9L, Carbon Dioxide Level 18L, Chloride Level 101, Creatinine 3.19H, Eosinophils # (Auto) 0.0, Eosinophils (%) (Auto) 0, Estimat Glomerular Filtration Rate 14, Glucose Level 152H, Hematocrit 23L, Hemoglobin 7.7L, Lymphocytes # (Auto) 0.4L, Lymphocytes (%) (Auto) 4L, Mean Corpuscular Hemoglobin 27, Mean Corpuscular Hemoglobin Concent 33, Mean Corpuscular Volume 81, Mean Platelet Volume 9.2, Monocytes # (Auto) 0.3, Monocytes (%) (Auto) 4, Neutrophils # (Auto) 8.8H, Neutrophils (%) (Auto) 92H, Platelet Count 341, Potassium Level 5.0, Red Blood Count 2.84L, Red Cell Distribution Width 15.1H, Sodium Level 128L, Total Bilirubin 0.2, Total Protein 6.2L, White Blood Count 9.5 Microbiology 04/30/16 Blood Culture - Final, Complete No growth 04/30/16 MRSA Screen - Final, Complete MRSA not isolated 04/30/16 Urine Culture - Final, Complete Assessment/Plan Assessment/Plan Assess & Plan/Chief Complaint atrial A. fib with RVR. Bronchitis. Patient improving in chest but still has problems. . 05/03/16. Patient converted to sinus rhythm. Patient still has bronchitis slowly improving. White blood cell count 13,000. From a chest standpoint patient not ready for discharge. Yet. . 05/06/16. Atrial fib with RVR. Bronchitis. Pneumonia. Anemia. Acute renal failure. To give some fluid. . History of A. fib with RVR. Renal insufficiency. Bronchitis. Acute renal failure. Patient feeling better but weak. Feet has swelling Diagnosis/Problems: Clinical Quality Measures DVT/VTE Risk/Contraindication: Risk Factor Score Per Nursin RFS Level Per Nursing on Admit: 4+=Very High Contraindications-Pharm: Other *list below* WILLARD LOPEZ DO May 07, 2016 07:52
--- NOTE | 2016-05-09 07:18 | Discharge Summary ---
Diagnosis/Chief Complaint Date of Admission Apr 30, 2016 at 14:50 Date of Discharge May 07, 2016 at 08:20 Discharge Date: May 07, 2016 Admission Diagnosis Admission Diagnosis acute bronchitis. A. fib with RVR. UTI. Coronary artery disease Discharge Diagnosis atrial fibrillation with RVR. Chronic obstructive pulmonary disease with acute lower respiratory infection. Acute bronchitis. Pneumonia. Acute kidney failure. Acute cystitis. Asthma history area Coronary artery disease. Hypertensive chronic kidney disease. Chronic kidney disease. Anxiety disorder. Anemia Reason Hospital Visit PATIENT CAME TO THE OFFICE. pATIENT SHORT OF BREATH COUGHING CONGESTION AND WHEEZING. Patient sent out to the emergency room and EKG showed atrial fib with RVR. UA questionable. Patient admitted. Surgeries complete hysterectomy family history denies asthma TB diabetes heart disease lung disease cancer Discharge Summary Consultations cardiology Discharge Physical Examination Allergies: Coded Allergies: No Known Drug Allergies (Unverified , 04/07/10) Vitals & I&Os Vital Signs Date Time Temp Pulse Resp B/P Pulse Ox O2 Delivery O2 Flow Rate FiO2 05/07/16 08:00 90 Nasal Cannula 2.00 05/07/16 07:00 68 05/07/16 04:00 96.7 18 148/68 Hospital Course atrial fibrillation on the control. Patient transferred to swing bed Labs (last 24 hrs) Laboratory Tests 04/30/16 11:05: Activated Partial Thromboplast Time 37H, Alanine Aminotransferase (ALT/SGPT) 12 , Albumin 3.5, Alkaline Phosphatase 69, Anion Gap 10, Aspartate Amino Transf ( AST/SGOT) 19, BUN/Creatinine Ratio 19, Basophils # (Auto) 0.0, Basophils (%) ( Auto) 0, Blood Urea Nitrogen 31H, Calcium Level 8.5, Carbon Dioxide Level 24, Chloride Level 104, Creatinine 1.60H, Eosinophils # (Auto) 0.3, Eosinophils (%) (Auto) 3, Estimat Glomerular Filtration Rate 30, Glucose Level 101, Hematocrit 33L, Hemoglobin 10.9L, INR Comment 1.1, Lactic Acid Level 1.1, Lymphocytes # ( Auto) 1.9, Lymphocytes (%) (Auto) 18, Mean Corpuscular Hemoglobin 27, Mean Corpuscular Hemoglobin Concent 33, Mean Corpuscular Volume 83, Mean Platelet Volume 8.6, Monocytes # (Auto) 1.1H, Monocytes (%) (Auto) 10, Neutrophils # ( Auto) 7.2, Neutrophils (%) (Auto) 69, Platelet Count 354, Potassium Level 5.0, Prothrombin Time 13.4, Red Blood Count 4.00L, Red Cell Distribution Width 15.9H , Sodium Level 138, Total Bilirubin 0.3, Total Protein 6.8, White Blood Count 10.4 04/30/16 11:46: Urine Bacteria TRACE, Urine Bilirubin NEGATIVE, Urine Casts PRESENT, Urine Clarity CLEAR, Urine Color YELLOW, Urine Crystals NONE, Urine Culture Indicated YES, Urine Glucose (UA) NEGATIVE, Urine Hyaline Casts 2-5H, Urine Ketones NEGATIVE, Urine Leukocyte Esterase 2+H, Urine Mucus NEGATIVE, Urine Nitrite NEGATIVE, Urine Protein 4+, Urine RBC NONE, Urine RBC (Auto) 1+H, Urine Specific [place] 1.015L, Urine Squamous Epithelial Cells 5-10, Urine Urobilinogen NORMAL, Urine WBC 10-25H, Urine pH 6 04/30/16 12:15: B-Type Natriuretic Peptide 118.6H 05/01/16 03:42: Anion Gap 9, BUN/Creatinine Ratio 17, Basophils # (Auto) 0.0, Basophils (%) ( Auto) 0, Blood Urea Nitrogen 30H, Calcium Level 8.4L, Carbon Dioxide Level 22, Chloride Level 105, Creatinine 1.75H, Eosinophils # (Auto) 0.3, Eosinophils (%) (Auto) 3, Estimat Glomerular Filtration Rate 27, Glucose Level 155H, Hematocrit 28L, Hemoglobin 9.0L, Lymphocytes # (Auto) 3.2, Lymphocytes (%) (Auto) 29, Mean Corpuscular Hemoglobin 27, Mean Corpuscular Hemoglobin Concent 32, Mean Corpuscular Volume 84, Mean Platelet Volume 8.8, Monocytes # (Auto) 1.2H, Monocytes (%) (Auto) 11, Neutrophils # (Auto) 6.3, Neutrophils (%) (Auto) 57, Platelet Count 330, Potassium Level 4.2, Red Blood Count 3.32L, Red Cell Distribution Width 15.8H, Sodium Level 136, White Blood Count 11.1H, Magnesium Level 2.9H, Phosphorus Level 4.2 05/02/16 04:44: Anion Gap 10, BUN/Creatinine Ratio 16, Basophils # (Auto) 0.0, Basophils (%) ( Auto) 0, Blood Urea Nitrogen 29H, Calcium Level 8.5, Carbon Dioxide Level 22, Chloride Level 106, Creatinine 1.80H, Eosinophils # (Auto) 0.4H, Eosinophils (% ) (Auto) 3, Estimat Glomerular Filtration Rate 26, Glucose Level 113H, Hematocrit 29L, Hemoglobin 9.3L, Lymphocytes # (Auto) 2.1, Lymphocytes (%) (Auto ) 17, Magnesium Level 3.0H, Mean Corpuscular Hemoglobin 27, Mean Corpuscular Hemoglobin Concent 32, Mean Corpuscular Volume 83, Mean Platelet Volume 8.4, Monocytes # (Auto) 1.3H, Monocytes (%) (Auto) 10, Neutrophils # (Auto) 8.4H, Neutrophils (%) (Auto) 69, Phosphorus Level 4.9H, Platelet Count 352, Potassium Level 4.4, Red Blood Count 3.46L, Red Cell Distribution Width 16.0H, Sodium Level 138, White Blood Count 12.1H 05/03/16 03:31: Anion Gap 11, BUN/Creatinine Ratio 15, Basophils # (Auto) 0.0, Basophils (%) ( Auto) 0, Blood Urea Nitrogen 27H, Calcium Level 8.7, Carbon Dioxide Level 21, Chloride Level 105, Creatinine 1.83H, Eosinophils # (Auto) 0.2, Eosinophils (%) (Auto) 2, Estimat Glomerular Filtration Rate 26, Glucose Level 112H, Hematocrit 29L, Hemoglobin 9.4L, Lymphocytes # (Auto) 2.0, Lymphocytes (%) (Auto) 15, Magnesium Level 2.9H, Mean Corpuscular Hemoglobin 27, Mean Corpuscular Hemoglobin Concent 33, Mean Corpuscular Volume 83, Mean Platelet Volume 8.9, Monocytes # (Auto) 1.3H, Monocytes (%) (Auto) 10, Neutrophils # (Auto) 9.8H, Neutrophils (%) (Auto) 73, Phosphorus Level 4.6, Platelet Count 371, Potassium Level 4.3, Red Blood Count 3.47L, Red Cell Distribution Width 16.0H, Sodium Level 137, White Blood Count 13.3H, Alanine Aminotransferase (ALT/SGPT) 9, Albumin 3.3, Alkaline Phosphatase 65, Aspartate Amino Transf (AST/SGOT) 14, Total Bilirubin 0.4, Total Protein 6.7 05/04/16 04:12: Anion Gap 9, BUN/Creatinine Ratio 13, Basophils # (Auto) 0.0, Basophils (%) ( Auto) 0, Blood Urea Nitrogen 25H, Calcium Level 8.4L, Carbon Dioxide Level 22, Chloride Level 106, Creatinine 1.88H, Eosinophils # (Auto) 0.1, Eosinophils (%) (Auto) 1, Estimat Glomerular Filtration Rate 25, Glucose Level 104, Hematocrit 27L, Hemoglobin 8.5L, Lymphocytes # (Auto) 1.3, Lymphocytes (%) (Auto) 11L, Mean Corpuscular Hemoglobin 27, Mean Corpuscular Hemoglobin Concent 32, Mean Corpuscular Volume 83, Mean Platelet Volume 8.7, Monocytes # (Auto) 1.6H, Monocytes (%) (Auto) 13H, Neutrophils # (Auto) 8.7H, Neutrophils (%) (Auto) 75, Platelet Count 325, Potassium Level 4.3, Red Blood Count 3.20L, Red Cell Distribution Width 15.6H, Sodium Level 137, White Blood Count 11.6H 05/05/16 04:50: Anion Gap 9, BUN/Creatinine Ratio 15, Basophils # (Auto) 0.0, Basophils (%) ( Auto) 0, Blood Urea Nitrogen 28H, Calcium Level 8.0L, Carbon Dioxide Level 20L, Chloride Level 104, Creatinine 1.93H, Eosinophils # (Auto) 0.1, Eosinophils (%) (Auto) 1, Estimat Glomerular Filtration Rate 24, Glucose Level 118H, Hematocrit 26L, Hemoglobin 8.3L, Lymphocytes # (Auto) 1.4, Lymphocytes (%) (Auto) 13, Mean Corpuscular Hemoglobin 27, Mean Corpuscular Hemoglobin Concent 32, Mean Corpuscular Volume 83, Mean Platelet Volume 8.7, Monocytes # (Auto) 1.3H, Monocytes (%) (Auto) 12, Neutrophils # (Auto) 8.1H, Neutrophils (%) (Auto) 74, Platelet Count 323, Potassium Level 4.4, Red Blood Count 3.08L, Red Cell Distribution Width 15.4H, Sodium Level 133L, White Blood Count 10.9 05/06/16 04:30: Anion Gap 12, Anisocytosis SLIGHT, BUN/Creatinine Ratio 15, Band Neutrophils 0, Basophils # (Auto) 0.0, Basophils % (Manual) 0, Basophils (%) (Auto) 0, Blood Urea Nitrogen 41H, Calcium Level 8.1L, Carbon Dioxide Level 17L, Chloride Level 101, Creatinine 2.80H, Eosinophils # (Auto) 0.0, Eosinophils % (Manual) 2, Eosinophils (%) (Auto) 0, Estimat Glomerular Filtration Rate 16, Glucose Level 248H, Hematocrit 24L, Hemoglobin 7.9L, Hypochromasia SLIGHT, Lymphocytes # (Auto ) 0.3L, Lymphocytes % (Manual) 4, Lymphocytes (%) (Auto) 5L, Macrocytosis SLIGHT , Mean Corpuscular Hemoglobin 27, Mean Corpuscular Hemoglobin Concent 33, Mean Corpuscular Volume 82, Mean Platelet Volume 9.2, Monocytes # (Auto) 0.1, Monocytes (%) (Auto) 2, Neutrophils # (Auto) 6.2, Neutrophils % (Manual) 94, Neutrophils (%) (Auto) 94H, Platelet Count 310, Poikilocytosis SLIGHT, Polychromasia SLIGHT, Potassium Level 4.8, Red Blood Count 2.97L, Red Cell Distribution Width 15.0H, Sodium Level 130L, White Blood Count 6.6 05/07/16 04:40: Anion Gap 9, BUN/Creatinine Ratio 16, Basophils # (Auto) 0.0, Basophils (%) ( Auto) 0, Blood Urea Nitrogen 51H, Calcium Level 7.9L, Carbon Dioxide Level 18L, Chloride Level 101, Creatinine 3.19H, Eosinophils # (Auto) 0.0, Eosinophils (%) (Auto) 0, Estimat Glomerular Filtration Rate 14, Glucose Level 152H, Hematocrit 23L, Hemoglobin 7.7L, Lymphocytes # (Auto) 0.4L, Lymphocytes (%) (Auto) 4L, Mean Corpuscular Hemoglobin 27, Mean Corpuscular Hemoglobin Concent 33, Mean Corpuscular Volume 81, Mean Platelet Volume 9.2, Monocytes # (Auto) 0.3, Monocytes (%) (Auto) 4, Neutrophils # (Auto) 8.8H, Neutrophils (%) (Auto) 92H, Platelet Count 341, Potassium Level 5.0, Red Blood Count 2.84L, Red Cell Distribution Width 15.1H, Sodium Level 128L, White Blood Count 9.5, Alanine Aminotransferase (ALT/SGPT) 15, Albumin 3.0L, Alkaline Phosphatase 58, Aspartate Amino Transf (AST/SGOT) 18, Total Bilirubin 0.2, Total Protein 6.2L Microbiology 04/30/16 Blood Culture - Final, Complete No growth 04/30/16 MRSA Screen - Final, Complete MRSA not isolated 04/30/16 Urine Culture - Final, Complete Laboratory Tests 04/30/16 11:05 05/01/16 03:42 05/02/16 04:44 05/03/16 03:31 05/04/16 04:12 05/05/16 04:50 05/06/16 04:30 05/07/16 04:40 Pending Labs Microbiology Date/Time Source Procedure Growth Status 04/30/16 11:30 Peripheral Rt Ac Blood Culture - Final No growth Complete 04/30/16 11:05 Peripheral Lt Ac Blood Culture - Final No growth Complete 04/30/16 19:55 Nasal MRSA Screen - Final MRSA not isolated Complete 04/30/16 11:46 Urine Clean Catch Urine Culture - Final Complete Laboratory Tests 04/30/16 11:05: Activated Partial Thromboplast Time 37, Alanine Aminotransferase (ALT/SGPT) 12, Albumin 3.5, Alkaline Phosphatase 69, Anion Gap 10, Aspartate Amino Transf (AST/ SGOT) 19, BUN/Creatinine Ratio 19, Basophils # (Auto) 0.0, Basophils (%) (Auto) 0, Blood Urea Nitrogen 31, Calcium Level 8.5, Carbon Dioxide Level 24, Chloride Level 104, Creatinine 1.60, Eosinophils # (Auto) 0.3, Eosinophils (%) (Auto) 3, Estimat Glomerular Filtration Rate 30, Glucose Level 101, Hematocrit 33, Hemoglobin 10.9, INR Comment 1.1, Lactic Acid Level 1.1, Lymphocytes # (Auto) 1.9, Lymphocytes (%) (Auto) 18, Mean Corpuscular Hemoglobin 27, Mean Corpuscular Hemoglobin Concent 33, Mean Corpuscular Volume 83, Mean Platelet Volume 8.6, Monocytes # (Auto) 1.1, Monocytes (%) (Auto) 10, Neutrophils # (Auto ) 7.2, Neutrophils (%) (Auto) 69, Platelet Count 354, Potassium Level 5.0, Prothrombin Time 13.4, Red Blood Count 4.00, Red Cell Distribution Width 15.9, Sodium Level 138, Total Bilirubin 0.3, Total Protein 6.8, White Blood Count 10.4 04/30/16 11:46: Urine Bacteria TRACE, Urine Bilirubin NEGATIVE, Urine Casts PRESENT, Urine Clarity CLEAR, Urine Color YELLOW, Urine Crystals NONE, Urine Culture Indicated YES, Urine Glucose (UA) NEGATIVE, Urine Hyaline Casts 2-5, Urine Ketones NEGATIVE, Urine Leukocyte Esterase 2+, Urine Mucus NEGATIVE, Urine Nitrite NEGATIVE, Urine Protein 4+, Urine RBC NONE, Urine RBC (Auto) 1+, Urine Specific [place] 1.015, Urine Squamous Epithelial Cells 5-10, Urine Urobilinogen NORMAL, Urine WBC 10-25, Urine pH 6 04/30/16 12:15: B-Type Natriuretic Peptide 118.6 05/01/16 03:42: Anion Gap 9, BUN/Creatinine Ratio 17, Basophils # (Auto) 0.0, Basophils (%) ( Auto) 0, Blood Urea Nitrogen 30, Calcium Level 8.4, Carbon Dioxide Level 22, Chloride Level 105, Creatinine 1.75, Eosinophils # (Auto) 0.3, Eosinophils (%) ( Auto) 3, Estimat Glomerular Filtration Rate 27, Glucose Level 155, Hematocrit 28 , Hemoglobin 9.0, Lymphocytes # (Auto) 3.2, Lymphocytes (%) (Auto) 29, Mean Corpuscular Hemoglobin 27, Mean Corpuscular Hemoglobin Concent 32, Mean Corpuscular Volume 84, Mean Platelet Volume 8.8, Monocytes # (Auto) 1.2, Monocytes (%) (Auto) 11, Neutrophils # (Auto) 6.3, Neutrophils (%) (Auto) 57, Platelet Count 330, Potassium Level 4.2, Red Blood Count 3.32, Red Cell Distribution Width 15.8, Sodium Level 136, White Blood Count 11.1, Magnesium Level 2.9, Phosphorus Level 4.2 05/02/16 04:44: Anion Gap 10, BUN/Creatinine Ratio 16, Basophils # (Auto) 0.0, Basophils (%) ( Auto) 0, Blood Urea Nitrogen 29, Calcium Level 8.5, Carbon Dioxide Level 22, Chloride Level 106, Creatinine 1.80, Eosinophils # (Auto) 0.4, Eosinophils (%) ( Auto) 3, Estimat Glomerular Filtration Rate 26, Glucose Level 113, Hematocrit 29 , Hemoglobin 9.3, Lymphocytes # (Auto) 2.1, Lymphocytes (%) (Auto) 17, Magnesium Level 3.0, Mean Corpuscular Hemoglobin 27, Mean Corpuscular Hemoglobin Concent 32, Mean Corpuscular Volume 83, Mean Platelet Volume 8.4, Monocytes # (Auto) 1.3, Monocytes (%) (Auto) 10, Neutrophils # (Auto) 8.4, Neutrophils (%) (Auto) 69, Phosphorus Level 4.9, Platelet Count 352, Potassium Level 4.4, Red Blood Count 3.46, Red Cell Distribution Width 16.0, Sodium Level 138, White Blood Count 12.1 05/03/16 03:31: Anion Gap 11, BUN/Creatinine Ratio 15, Basophils # (Auto) 0.0, Basophils (%) ( Auto) 0, Blood Urea Nitrogen 27, Calcium Level 8.7, Carbon Dioxide Level 21, Chloride Level 105, Creatinine 1.83, Eosinophils # (Auto) 0.2, Eosinophils (%) ( Auto) 2, Estimat Glomerular Filtration Rate 26, Glucose Level 112, Hematocrit 29 , Hemoglobin 9.4, Lymphocytes # (Auto) 2.0, Lymphocytes (%) (Auto) 15, Magnesium Level 2.9, Mean Corpuscular Hemoglobin 27, Mean Corpuscular Hemoglobin Concent 33, Mean Corpuscular Volume 83, Mean Platelet Volume 8.9, Monocytes # (Auto) 1.3, Monocytes (%) (Auto) 10, Neutrophils # (Auto) 9.8, Neutrophils (%) (Auto) 73, Phosphorus Level 4.6, Platelet Count 371, Potassium Level 4.3, Red Blood Count 3.47, Red Cell Distribution Width 16.0, Sodium Level 137, White Blood Count 13.3, Alanine Aminotransferase (ALT/SGPT) 9, Albumin 3.3 , Alkaline Phosphatase 65, Aspartate Amino Transf (AST/SGOT) 14, Total Bilirubin 0.4, Total Protein 6.7 05/04/16 04:12: Anion Gap 9, BUN/Creatinine Ratio 13, Basophils # (Auto) 0.0, Basophils (%) ( Auto) 0, Blood Urea Nitrogen 25, Calcium Level 8.4, Carbon Dioxide Level 22, Chloride Level 106, Creatinine 1.88, Eosinophils # (Auto) 0.1, Eosinophils (%) ( Auto) 1, Estimat Glomerular Filtration Rate 25, Glucose Level 104, Hematocrit 27 , Hemoglobin 8.5, Lymphocytes # (Auto) 1.3, Lymphocytes (%) (Auto) 11, Mean Corpuscular Hemoglobin 27, Mean Corpuscular Hemoglobin Concent 32, Mean Corpuscular Volume 83, Mean Platelet Volume 8.7, Monocytes # (Auto) 1.6, Monocytes (%) (Auto) 13, Neutrophils # (Auto) 8.7, Neutrophils (%) (Auto) 75, Platelet Count 325, Potassium Level 4.3, Red Blood Count 3.20, Red Cell Distribution Width 15.6, Sodium Level 137, White Blood Count 11.6 05/05/16 04:50: Anion Gap 9, BUN/Creatinine Ratio 15, Basophils # (Auto) 0.0, Basophils (%) ( Auto) 0, Blood Urea Nitrogen 28, Calcium Level 8.0, Carbon Dioxide Level 20, Chloride Level 104, Creatinine 1.93, Eosinophils # (Auto) 0.1, Eosinophils (%) ( Auto) 1, Estimat Glomerular Filtration Rate 24, Glucose Level 118, Hematocrit 26 , Hemoglobin 8.3, Lymphocytes # (Auto) 1.4, Lymphocytes (%) (Auto) 13, Mean Corpuscular Hemoglobin 27, Mean Corpuscular Hemoglobin Concent 32, Mean Corpuscular Volume 83, Mean Platelet Volume 8.7, Monocytes # (Auto) 1.3, Monocytes (%) (Auto) 12, Neutrophils # (Auto) 8.1, Neutrophils (%) (Auto) 74, Platelet Count 323, Potassium Level 4.4, Red Blood Count 3.08, Red Cell Distribution Width 15.4, Sodium Level 133, White Blood Count 10.9 05/06/16 04:30: Anion Gap 12, Anisocytosis SLIGHT, BUN/Creatinine Ratio 15, Band Neutrophils 0, Basophils # (Auto) 0.0, Basophils % (Manual) 0, Basophils (%) (Auto) 0, Blood Urea Nitrogen 41, Calcium Level 8.1, Carbon Dioxide Level 17, Chloride Level 101 , Creatinine 2.80, Eosinophils # (Auto) 0.0, Eosinophils % (Manual) 2, Eosinophils (%) (Auto) 0, Estimat Glomerular Filtration Rate 16, Glucose Level 248, Hematocrit 24, Hemoglobin 7.9, Hypochromasia SLIGHT, Lymphocytes # (Auto) 0.3, Lymphocytes % (Manual) 4, Lymphocytes (%) (Auto) 5, Macrocytosis SLIGHT, Mean Corpuscular Hemoglobin 27, Mean Corpuscular Hemoglobin Concent 33, Mean Corpuscular Volume 82, Mean Platelet Volume 9.2, Monocytes # (Auto) 0.1, Monocytes (%) (Auto) 2, Neutrophils # (Auto) 6.2, Neutrophils % (Manual) 94, Neutrophils (%) (Auto) 94, Platelet Count 310, Poikilocytosis SLIGHT, Polychromasia SLIGHT, Potassium Level 4.8, Red Blood Count 2.97, Red Cell Distribution Width 15.0, Sodium Level 130, White Blood Count 6.6 05/07/16 04:40: Anion Gap 9, BUN/Creatinine Ratio 16, Basophils # (Auto) 0.0, Basophils (%) ( Auto) 0, Blood Urea Nitrogen 51, Calcium Level 7.9, Carbon Dioxide Level 18, Chloride Level 101, Creatinine 3.19, Eosinophils # (Auto) 0.0, Eosinophils (%) ( Auto) 0, Estimat Glomerular Filtration Rate 14, Glucose Level 152, Hematocrit 23 , Hemoglobin 7.7, Lymphocytes # (Auto) 0.4, Lymphocytes (%) (Auto) 4, Mean Corpuscular Hemoglobin 27, Mean Corpuscular Hemoglobin Concent 33, Mean Corpuscular Volume 81, Mean Platelet Volume 9.2, Monocytes # (Auto) 0.3, Monocytes (%) (Auto) 4, Neutrophils # (Auto) 8.8, Neutrophils (%) (Auto) 92, Platelet Count 341, Potassium Level 5.0, Red Blood Count 2.84, Red Cell Distribution Width 15.1, Sodium Level 128, White Blood Count 9.5, Alanine Aminotransferase (ALT/SGPT) 15, Albumin 3.0, Alkaline Phosphatase 58, Aspartate Amino Transf (AST/SGOT) 18, Total Bilirubin 0.2, Total Protein 6.2 Radiology Reviewed chest x-ray on admission cardiomegaly. Chest x-ray on 05/07 developing right lower lobe infiltrate Discharge Home Medications: Active Scripts Active Reported Albuterol Sulfate 2.5 Mg/3 Ml Vial.neb 2.5 Mg IH TID PRN Ventolin Hfa (Albuterol Sulfate) 18 Gm Hfa.aer.ad 2 Puff IH TID PRN Alprazolam 0.25 Mg Tablet 0.25 Mg PO BID PRN Tramadol HCl 50 Mg Tablet 50 Mg PO BID Eliquis (Apixaban) 2.5 Mg Tablet 2.5 Mg PO BID Omeprazole 40 Mg Capsule.dr 40 Mg PO DAILY LAST FILLED 11/07/15 #90 Amlodipine Besylate 10 Mg Tablet 10 Mg PO DAILY Trazodone HCl 50 Mg Tablet 50 Mg PO HS Loratadine 10 Mg Tablet 10 Mg PO DAILY Simvastatin 40 Mg Tablet 40 Mg PO HS Furosemide 40 Mg Tablet 40 Mg PO DAILY PRN ONLY TAKES IS SHE HAS A WEIGHT GAIN OF 3 POUNDS. Instructions to patient/family Please see electonic discharge instructions given to patient. Clinical Quality Measures DVT/VTE Risk/Contraindication: Risk Factor Score Per Nursin RFS Level Per Nursing on Admit: 4+=Very High Contraindications-Pharm: Other *list below* WILLARD LOPEZ DO May 09, 2016 07:18
== END 2016-05-07 08:20 | disposition swing bed (61) | DRG 308 ==
LOC: EDUNIT# 10:45 → ER 10:48 → ICU 14:50 → 4TH 05-03 10:03
PROVIDERS: ADMIT Family Medicine; ATTEND Family Medicine
DX: I48.91 Unspecified atrial fibrillation (principal); J44.0 Chronic obstructive pulmonary disease with (acute) lower respiratory infection; J20.9 Acute bronchitis, unspecified; J18.9 Pneumonia, unspecified organism; N17.9 Acute kidney failure, unspecified; N30.00 Acute cystitis without hematuria; E87.1 Hypo-osmolality and hyponatremia; J45.909 Unspecified asthma, uncomplicated; I25.10 Atherosclerotic heart disease of native coronary artery without angina pectoris; I12.9 Hypertensive chronic kidney disease with stage 1 through stage 4 chronic kidney disease, or unspecified chronic kidney disease; N18.9 Chronic kidney disease, unspecified; F41.9 Anxiety disorder, unspecified; F32.9 Major depressive disorder, single episode, unspecified; N28.9 Disorder of kidney and ureter, unspecified; R60.0 Localized edema; D64.9 Anemia, unspecified; Z79.01 Long term (current) use of anticoagulants; Z85.41 Personal history of malignant neoplasm of cervix uteri
CPT/HCPCS: 36415; 71010; 71020; 80048; 80053; 81000; 83605; 83735; 83880; 84100; 85007; 85025; 85027; 85610; 85730; 87040; 87081; 87088; 93005; 94010; 94640; 94664; 94760; 96365; 96366; 96367; 96375

== ENCOUNTER 2016-05-07 08:31 | Inpatient (IN) | payer MEDICARE, MEDICAID ==
[~2016-05-07] VITALS: Ht 158.8 cm; Wt 112.2 kg
[~2016-05-07 08:31] MED LIST changes: +ALBU2.5V4 IH; +ALPR0.254 PO; +AMLO10TA2 PO; +APIX2.5T PO; +CATHETER FLUSH 10 ML SYR IV PRN; +FURO40TA4 PO; +FUROSEMIDE 40 MG (LASIX) TAB PO PRN; +LORA10TA7 PO; +SIMV40TA4 PO; +SUCRALFATE 1 GM (CARAFATE) TAB PO PRN; +TRAM50TA2 PO; +TRAZ-28 PO; +guaiFENesin/DM (ROBITUSSIN DM) 10 ML UDC PO PRN
--- OUTSIDE RECORDS SUMMARY | 2016-05-07 08:44 | XMS REPORT | Continuity of Care Document ---
Author Author [facility] Organization [facility] Address Unknown Phone Unavailable Care Team Providers Care Iron Worker Name Role Phone WILLARD LOPEZ DO PCP Insurance Providers Payer Name Policy Number Subscriber Name Relationship [employer] [id number] Be Bill 18 Self / Same As Patient [employer] [id number] Be Bill 18 Self / Same As Patient Advance Directives Directive Response Recorded Date/Time Advance Directives No 08/05/13 9:37am Health Care Power of Continuity Tester No 08/05/13 9:37am Organ Donor No 08/05/13 [...] PO EVERY OTHER DAY 11/07/09 10/24/11 Discontinued Evans-3 Fatty Acids/Fish Oil 1,000 Mg PO DAILY [...] was developed and its performance characteristicsdetermined by [facility]. It has not been cleared or approved [...] <1:80 - Interpretative data is available online at:[email or web address] Enter Test Number:[id number] INTERPRETIVE DATA IF GIANCARLO SCREEN POSITIVE TITER [...] H 0-30 PT IN OUTPT AREA-FAX TO [phone] Ferritin November 07, 2010 4:15pm 88 NG/ML [...] SELECTED GROUPS OF HIGH RISK PATIENTS. [employer] CONSENSUS CONFERENCE ON ANTITHROMBOTIC THERAPY (2000). Prothrombin Time November 09, 2013 11:12am 25.1 SEC H 12.2-14.7 INSPECTOR CLIP ON SUNGLASSES Antibody June 21, 2011 12:47pm <20 - [...] >=25.0 POSITIVE THIS TEST WAS PERFORMED AT [employer] [facility] [id number] [place] [id number] Arnol BAÑUELOS Saccharomyces cerevisiae IgG Ab November 07, 2010 4:15pm 4.7 U - Reference Range (ASCA IGG AB): <=20.0 NEGATIVE 20.1-29.9 EQUIVOCAL >=30.0 POSITIVE THIS TEST WAS PERFORMED AT [employer] [facility] [address] [place] [phone] Arnol BAÑUELOS Scl-70 (Scleroderma) Antibody June 21, 2011 12:47pm <20 EU/ML - Interpretative data is available online at:[email or web address] Enter Test Number:[id number] Sodium Level October 08, 2013 9:44am 135 [...] 2010 2:45pm Not Performed - Urine Specific [place] August 05, 2013 10:05am 1.010 L - [...] October 23, 2010 11:10am Transfusion Reaction Form [id number] - Estimat Glomerular Filtration Rate October 08, [...] Protein Electrophoresis Note October 17, 2010 5:55am [id number] - Free [place] Light Chains, Quant October 17, 2010 5:55am 39.20 H MG/L - Free Lambda Light Chains, Quant October 17, 2010 5:55am 31.79 H MG/L - Free [place]/Lambda Light Chain Ratio October 17, 2010 5:55am 1.23 RATIO - Protein Electrophoresis Pathologist October 17, 2010 5:55am SEE PATH REPORT - Cardiac Panel Pathologist Review October 12, 2010 12:12am SEE CARDIAC PATH REV - Comments to Certified Medicine Aide: USE BLOOD FROM EARLY AM Stool Occult [...] SELECTED GROUPS OF HIGH RISK PATIENTS. [employer] CONSENSUS CONFERENCE ON ANTITHROMBOTIC THERAPY (2000). Blood Culture Peripheral-Rt Forearm August 05, 2013 10:15am No growth MRSA Screen Nasal October 24, 2011 7:20am MRSA not isolated Urine Culture Urine-Clean Catch August 05, 2013 10:05am Procedures No known history of procedures. Encounters Encounter Location Date/Time Registered Clinic [facility] 12/22/13 8:03pm Discharged Recurring [facility] 11/09/13 11:07am
[2016-05-07] MEDS ORDERED: RT-ALBUTEROL/IPRATROPIUM 3 ML (DUONEB) VIAL INH PRN (09:00)
[2016-05-07 09:23] VITALS: BP 132/70
[2016-05-07] MEDS: DILTIAZEM 240 MG (CARDIZEM CD) CAP PO SCH (09:27)
[2016-05-07] MEDS: LORATADINE (CLARITIN) 10 MG TAB PO SCH (09:27)
[2016-05-07] MEDS: APIXABAN 2.5 MG (ELIQUIS) TABLET PO SCH ×2 (09:27→20:01)
--- NOTE | 2016-05-07 09:55 | Cardiology Progress Note ---
Subjective Subjective/Events-last exam Patient sitting up in chair, no new complaints. Denies CP or dyspnea Review of Systems General: No Night Sweats, No Fatigue, No Malaise HEENT: No Visual Changes, No Dysphasia, No Sore Throat Pulmonary: No Dyspnea, No Cough Cardiovascular: No: Chest Pain, Palpitations Gastrointestinal: No: Abdominal Pain, Nausea, Vomiting Genitourinary: No Dysuria, No Frequency Musculoskeletal: No: back pain, neck pain Neurological: No: Change in speech, Confusion, Numbness, Weakness Objective-Cardiology Exam Last Set of Vital Signs Vital Signs 05/07/16 09:23 Temp 97.8 Pulse 78 Resp 16 B/P 132/70 Pulse Ox 97 O2 Delivery Nasal Cannula O2 Flow Rate 1.00 Capillary Refill : General: Alert, Oriented X3, Cooperative HEENT: Atraumatic, PERRLA Neck: Supple, No JVD, No Thyromegaly Lungs: Clear to Auscultation, Normal Air Movement Heart: Other (irregular) Abdomen: Normal Bowel Sounds, Soft, No Tenderness Extremities: No Clubbing, No Cyanosis Skin: No Rashes Neuro: Normal Gait, Normal Speech, Cranial Nerves 3-12 NL Psych/Mental Status: Mental Status NL, Mood NL A/P-Cardiology Admission Diagnosis AFib HTN Renal failure Pneumonia Assessment/Plan Atrial fibrillation, controlled rate, continue current medications and monitor. Hypertension, tolerating Toprol and Cardizem well. Continue to monitor blood pressure Mild hyponatremia, worsening renal function, started on normal saline Pneumonia, shortness of breath, wheezing, managed by primary care physician. Still having some shortness of breath and wheezing, MAT protocol, started on Rocephin and Zithromax. Continue to monitor Acute renal failure, worsening renal function,management by PCP. Clinical Quality Measures DVT/VTE Risk/Contraindication: Contraindications-Pharm: Other *list below* ERIKA COREY May 07, 2016 09:55
--- NOTE | 2016-05-07 10:13 | Physical Therapy Evaluation ---
PT Evaluation-General Medical Diagnosis Admission Date May 07, 2016 at 08:31 Medical Diagnosis: bronchitis/UTI Onset Date: Apr 30, 2016 Therapy Diagnosis Therapy Diagnosis: debility Height/Weight Height (Feet): 5 Height (Inches): 2.50 Weight (Pounds): 229 Weight (Ounces): 9.0 Referral Physician: Jeff Reason for Referral: Evaluation/Treatment Medical History Pertinent Medical History: Atrial Fib, OA Additional Medical History right THR Current History increase SOA with minimal activity Reviewed History: Yes Social History Home: Single Level Current Living Status: Other Family Entry Into Home: Ramp Patient ambulates 10-20' at home with FWW PLOF; uses powerchair at home and in community Prior/Core FIM Prior Level of Function Functional [place] Measure 0=Not Assessed/NA 4=Minimal Assistance 1=Total Assistance 5=Supervision or Setup 2=Maximal Assistance 6=Modified [place] 3=Moderate Assistance 7=Complete [place] Bed Mobility: 6 Transfers (B,C,W/C) (FIM): 6 Gait: 1 uses FWW for short distances 10-'20' per patient/uses "Hovaround" at home PT Evaluation-Current Subjective Patient agrees to PT. Patient states she is weak. Pain Numeric Pain Scale: 0-No Pain Location: No Pain Reported Objective Patient Orientation: Normal For Age Problem Solving: Fair Attachments: Oxygen (2L) ROM/Strength ROM Lower Extremities bilateral LE WFL Strenght Lower Extremities left LE 3+/5 grossly; right LE 3/5 grossly in all planes Integumentary/Posture Integumentary noted 1+ edema bilateral LE's Bowel Incontinence: No Bladder Incontinence: No Posture slightly kyphotic Neuromuscular (Tone, Coordination, Reflexes) diminished coordination due to inactivity PLOF Sensory Vision: Wears Glasses Hearing: Functional Sensation Right Lower Extremit: Intact Sensation Left Lower Extremity: Intact Transfers Functional [place] Measure 0=Not Assessed/NA 4=Minimal Assistance 1=Total Assistance 5=Supervision or Setup 2=Maximal Assistance 6=Modified [place] 3=Moderate Assistance 7=Complete [place] Transfers (B, C, W/C) (FIM): 5 Scootin Rollin Supine to/from Sit: 5 Sit to/from Stand: 5 Sit to Lying (QC): 4 Lying to Sitting/Side of Bed(Q: 4 Sit to Stand (QC): 4 Chair/Shd-hl-Vcjve Xfer(QC): 4 Gait Does the Patient Walk?: Yes Mode of Locomotion: Both Anticipated Mode of Locomotion: Both Gait (FIM): 1 Distance (FIM): 1=up to 49 ft Distance: 45' x 2 Walk 50 ft with 2 Turns(QC): 9 Walk 150 ft (QC): 9 Gait Level of Assist: 4 Gait Persons Needed: 1 Gait Assistive Device: FWW Comments/Gait Description CGA for safety and for O2 tank Wheelchair Training Type of Wheelchair: Motorized does not have this here Stairs If not tested on admit;explain patient does not preform this task prior Balance Sitting Static: Normal Sitting Dynamic: Normal Standing Static: Normal Treatment bilateral LE exercises in sit and supine 15 reps AAROM, AP, QS, LAQ, HS Assessment/Needs 89 y.o. inactive female, will benefit from short term skilled PT to address functional strength and mobility to improve cardiopulmonary function. Per patient, she does not have home O2. Patient displays increase in SOA with minimal activity with SAO2 98% on 3L NC with activity. Rehab Potential: Fair Post Rehab Potential-Barriers: inactivity PT Bottom Steep Tender Goals Bottom Steep Tender Goals PT Snf Goals Time Frame: May 17, 2016 Transfers (B,C,W/C) (FIM): 6 Sit to Lying (QC): 5 Lying-Sitting on Side/Bed(QC): 5 Sit to Stand (QC): 5 Rollin Chair/Xbv-qx-Dzmco Xfer(QC): 5 Does the Patient Walk: Yes Gait (FIM): 2 Gait distance (FIM): 7=698-23 ft Distance: 50' Walk 50ft with 2 Turns (QC): 5 Walk 150 ft (QC): 88 Gait Level of Assist: 5 Gait Assistive Device: FWW Does the Pt use WC or Scooter?: Yes PT Plan Problem List Problem List: Activity Tolerance, Functional Strength, Safety, Gait Treatment/Plan Treatment Plan: Continue Plan of Care Treatment Plan: Bed Mobility, Education, Functional Activity Raul, Functional Strength, Gait, Safety, Therapeutic Exercise, Transfers Treatment Duration: May 17, 2016 # of days/week 5-6 Minutes/Day (M-F): 15-30 Minutes/Day (Sat/Sandoval): PRN Safety Risks/Education Patient Education: Gait Training, Disease Process, Safety Issues Teaching Recipient: Patient Teaching Methods: Demonstration, Discussion Response to Teaching: Verbalize Understanding, Return Demonstration Time/GCodes Time In: 940 Time Out: 1005 Total Billed Treatment Time: 25 Total Billed Treatment 1 visit [facility] 10 min FA 15 min MATEUS MARK PT May 07, 2016 10:13
[2016-05-07] MEDS: RT-ALBUTEROL/IPRATROPIUM 3 ML (DUONEB) VIAL INH SCH ×2 (14:11→19:57)
--- NOTE | 2016-05-07 14:44 | Diagnostic Imaging Report ---
INDICATION: Shortness of air, possible pneumonia. COMPARISON STUDY: Chest portable from earlier today. FINDINGS: Frontal and lateral views of the chest demonstrate a small hiatal hernia. Mild infiltrates seen posteriorly in the right lung base. The heart size is at the upper limits of normal. The vascularity is normal. IMPRESSION: There is a small hiatal hernia with mild infiltrates in the right lung base mainly posteriorly. Dictated by: Dictated on workstation # [id number]
--- NOTE | 2016-05-07 15:07 | Occ Therapy Progress Note ---
Therapy Progress Note Order received for OT eval and treat. Attempted evaluation this pm. Pt in bed with family present. Pt declined therapy at this time stating, "I'm exhausted." Pt states she has been up with PT, went for x-ray, and sat up in the chair for quite some time. Pt requests to rest at this time, but agrees to participate tomorrow. Will attempt evaluation 05/08/16. 1, visit LUCY RAMOS OT May 07, 2016 15:07
[2016-05-07] MEDS: ACETAMINOPHEN 500 MG TAB (TYLENOL) PO PRN (15:37)
--- NOTE | 2016-05-07 16:25 | Cardiology Progress Note ---
Subjective Subjective/Events-last exam Patient is in bed. feeling better, still having SOB and cough Review of Systems General: No Chills, No Night Sweats, No Fatigue, No Malaise, No Appetite, No Other HEENT: No Head Aches, No Visual Changes, No Eye Pain, No Ear Pain, No Dysphasia , No Sinus Congestion, No Post Nasal Drip, No Sore Throat, No Other Pulmonary: Dyspnea CoughNo Pleuritic Chest Pain, No Other Cardiovascular: No: Chest Pain, Edema, Lt Headedness, Orthopnea, Other, Palpitations, Paroxysmal Noc. Dyspnea Objective-Cardiology Exam Last Set of Vital Signs Vital Signs 05/07/16 09:23 Temp 97.8 Pulse 78 Resp 16 B/P 132/70 Pulse Ox 97 O2 Delivery Nasal Cannula O2 Flow Rate 1.00 Capillary Refill : General: Alert, Oriented X3, Cooperative HEENT: Atraumatic, PERRLA Neck: Supple, No JVD, No Thyromegaly Lungs: Clear to Auscultation, Normal Air Movement Heart: Normal S1, Normal S2, Other (irregular) Abdomen: Normal Bowel Sounds, Soft, No Tenderness Extremities: No Clubbing, No Cyanosis Skin: No Rashes Neuro: Normal Gait, Normal Speech, Cranial Nerves 3-12 NL Psych/Mental Status: Mental Status NL, Mood NL A/P-Cardiology Admission Diagnosis AFib HTN Renal failure Pneumonia Assessment/Plan Atrial fibrillation, controlled rate, continue current medications and monitor. Hypertension, tolerating Toprol and Cardizem well. Continue to monitor blood pressure Mild hyponatremia, worsening renal function, monitoring renal function closely. Continue to monitor. Pneumonia, shortness of breath, wheezing, managed by primary care physician. Still having some shortness of breath and wheezing, MAT protocol, started on Rocephin and Zithromax. Continue to monitor Acute renal failure, continue to monitor, managed by Dr. Aguilar Clinical Quality Measures DVT/VTE Risk/Contraindication: Contraindications-Pharm: Other *list below* AMY PIERRE MD May 07, 2016 4:25 pm
[2016-05-07 17:47] VITALS: BP 152/64
[2016-05-07] MEDS: RT-ADVAIR HFA 115/21 MCG PER PUFF IH SCH (19:57)
[2016-05-07] MEDS: ATORVASTATIN 20 MG (LIPITOR) TABLET PO SCH (20:01)
[2016-05-07] MEDS: traZODone 50 MG (DESYREL) TAB PO SCH (20:01)
[2016-05-08] MEDS: ACETAMINOPHEN 500 MG TAB (TYLENOL) PO PRN ×3 (02:07→17:28)
[2016-05-08 04:50] LABS: MEAN PLATELET VOLUME 9.1 FL (7.4-10.4); RED BLOOD COUNT 2.93 10^6/uL (4.35-5.85); RED CELL DISTRIBUTION WIDTH 15.2 % (10.0-14.5); WHITE BLOOD COUNT 8.3 10^3/uL (4.3-11.0)
[2016-05-08 05:08] LABS: ALBUMIN 3.2 G/DL (3.2-4.5); BILIRUBIN,TOTAL 0.2 MG/DL (0.1-1.0); CREATININE SERUM 3.55 MG/DL (0.60-1.30); POTASSIUM 5.4 MMOL/L (3.6-5.0); TOTAL PROTEIN 6.3 G/DL (6.4-8.2)
[2016-05-08] MEDS: ALPRAZolam 0.25 MG (XANAX) TAB PO PRN ×2 (05:12→20:16)
[2016-05-08] MEDS: RT-ADVAIR HFA 115/21 MCG PER PUFF IH SCH ×2 (07:29→19:58)
[2016-05-08] MEDS: RT-ALBUTEROL/IPRATROPIUM 3 ML (DUONEB) VIAL INH SCH ×3 (07:29→19:58)
--- NOTE | 2016-05-08 08:00 | Progress Note (SOAP) ---
Subjective Subjective/Events-last exam patient weak. Patient anemic. Patient to receive a unit of packed red blood cells. GFR 12. Renal insufficiency. Objective Exam Vital Signs Date Time Temp Pulse Resp B/P Pulse Ox O2 Delivery O2 Flow Rate FiO2 05/08/16 07:29 92 Nasal Cannula 1.00 05/07/16 21:00 Nasal Cannula 2.00 05/07/16 20:04 97 Nasal Cannula 1.00 05/07/16 19:57 95 Nasal Cannula 2.00 05/07/16 17:47 96.9 72 20 152/64 97 Nasal Cannula 1.00 05/07/16 09:23 97.8 78 16 132/70 97 Nasal Cannula 1.00 I & O 05/08/16 07:00 Intake Total 1570 ml Output Total 450 ml Balance 1120 ml Capillary Refill : General Appearance: No Apparent Distress WD/WN HEENT: Normal ENT Inspection Neck: Normal Inspection Respiratory: Other (still has congestion and chest) Cardiovascular: Regular Rate, Rhythm Gastrointestinal: non tender soft Results Lab Laboratory Tests 05/08/16 04:20 Laboratory Tests 05/08/16 04:20: Alanine Aminotransferase (ALT/SGPT) 18, Albumin 3.2, Alkaline Phosphatase 53, Anion Gap 10, Aspartate Amino Transf (AST/SGOT) 14, BUN/Creatinine Ratio 18, Blood Urea Nitrogen 64H, Calcium Level 8.0L, Carbon Dioxide Level 16L, Chloride Level 101, Creatinine 3.55H, Estimat Glomerular Filtration Rate 12, Glucose Level 158H, Hematocrit 24L, Hemoglobin 7.7L, Mean Corpuscular Hemoglobin 26, Mean Corpuscular Hemoglobin Concent 33, Mean Corpuscular Volume 80, Mean Platelet Volume 9.1, Platelet Count 364, Potassium Level 5.4H, Red Blood Count 2.93L, Red Cell Distribution Width 15.2H, Sodium Level 127L, Total Bilirubin 0.2 , Total Protein 6.3L, White Blood Count 8.3 Assessment/Plan Assessment/Plan Assess & Plan/Chief Complaint weakness. Bronchitis. Pneumonia. Anemia. Patient to receive a unit of blood today Diagnosis/Problems: Clinical Quality Measures DVT/VTE Risk/Contraindication: Contraindications-Pharm: Other *list below* WILLARD LOPEZ DO May 08, 2016 08:00
[2016-05-08] MEDS ORDERED: diphenhydrAMINE 25 MG TAB (BENADRYL) PO NR (08:15)
[2016-05-08] MEDS ORDERED: ACETAMINOPHEN 325 MG TABLET/CAPLET (TYLENOL) PO NR (08:15)
[2016-05-08] MEDS ORDERED: NS IV 500 ML 500 ML ONE (08:40)
[2016-05-08] MEDS: DILTIAZEM 240 MG (CARDIZEM CD) CAP PO SCH (08:57)
[2016-05-08] MEDS ORDERED: cefTRIAXone INJECTION 1,000 MG in NORMAL SALINE (BAXTER MINI) 50 ML IV SCH (09:00)
[2016-05-08] MEDS: LORATADINE (CLARITIN) 10 MG TAB PO SCH (09:01)
[2016-05-08] MEDS: APIXABAN 2.5 MG (ELIQUIS) TABLET PO SCH (09:02)
[2016-05-08 11:00] VITALS: BP 137/50
[2016-05-08 11:15] VITALS: BP 183/63
--- NOTE | 2016-05-08 14:04 | Physical Therapy Daily Note ---
PT Daily Note-Current Subjective Pt laying supine in bed upon arrival. Pt reports feeling very tired/fatigued today. Pt declines PT's request to walk despite education on benefit to help fit off pneumonia & prevent pressure sores. Pt agrees to supine EX in bed for PT. Pain Numeric Pain Scale: 9 Location: Right, Medial Location Body Site: Shoulder Pain Description: Ache Mental Status Patient Orientation: Person, Normal For Age Attachments: IV Transfers Functional [place] Measure 0=Not Assessed/NA 4=Minimal Assistance 1=Total Assistance 5=Supervision or Setup 2=Maximal Assistance 6=Modified [place] 3=Moderate Assistance 7=Complete IndependenceIRFPAI Quality Coding Scale 6 Independent with activity with or without an assistive device 5 Patient requires set up or clean up by helper. Patient completes activity by themselves 4 Supervision or touching assist (CGA). [place] provide cues , steadying assist 3 The helper provides less than half the effort to complete the activity 2 The helper provides more than half the effort to complete the activity 1 Dependent. The helper does all the effort to complete an activity 7 Patient refused to complete or attempt activity 9 The patient did not perform the activity before the current illness or injury 88 Not attempted due to Medical conditions or safety concerns Roll Left to Right (QC): 7 Supine to/from Sit: 7 Sit to/from Stand: 7 Sit to Stand (QC): 7 Chair/Ime-ki-Umzic Xfer(QC): 7 Exercises Supine Ex: Ankle pumps, Quad Set, Heel Slides, Straight leg raise, Hip abd/add Supine Reps: 15 Treatments Pt discusses health concerns, where she is having pain, why didn't want to walk & medical background story, etc. Pt then completes supine Ex in bed RLE is weaker/requires more effort for pt to move than LLE. Pt fatigues easy and needs short rest breaks. Pt is left supine in bed with all needs met at end of tx. Assessment Current Status: Fair Progress Pt reports tired/fatigue/weakness and declined ambulation. PT educated on benefits of walking and encouraged to walk and or complete more supine EX later if feeling better. PT Jail Goals Jail Goals PT Grocery Worker Goals Time Frame: May 17, 2016 Transfers (B,C,W/C) (FIM): 6 Sit to Lying (QC): 5 Lying-Sitting on Side/Bed(QC): 5 Sit to Stand (QC): 5 Rollin Chair/Ufu-bi-Hwjag Xfer(QC): 5 Does the Patient Walk: Yes Gait (FIM): 2 Gait distance (FIM): 4=495-95 ft Distance: 50' Walk 50ft with 2 Turns (QC): 5 Walk 150 ft (QC): 88 Gait Level of Assist: 5 Gait Assistive Device: FWW Does the Pt use WC or Scooter?: Yes PT Plan Problem List Problem List: Activity Tolerance, Functional Strength, Safety, Balance, Gait, Transfer, Bed Mobility, ROM Treatment/Plan Treatment Plan: Continue Plan of Care Treatment Plan: Bed Mobility, Education, Functional Activity Raul, Functional Strength, Gait, Safety, Therapeutic Exercise, Transfers Treatment Duration: May 17, 2016 Minutes/Day (M-F): 15-30 Minutes/Day (Sat/Sandoval): PRN Safety Risks/Education Patient Education: Transfer Techniques, Correct Positioning, Safety Issues Teaching Recipient: Patient, Family Teaching Methods: Discussion Response to Teaching: Verbalize Understanding Time/GCodes Time In: 1040 Time Out: 1105 Total Billed Treatment Time: 25 Total Billed Treatment visit, EX (15m) & FA (10m) ERA BAUMAN PTA May 08, 2016 14:04
[2016-05-08] MEDS ORDERED: NS IV 1000 ML 1,000 ML IV SCH (14:15)
--- NOTE | 2016-05-08 14:15 | Cardiology Progress Note ---
Subjective Subjective/Events-last exam patient is laying down in bed, no new complaint, still having some cough and shortness of breath. No palpitation. Review of Systems General: No Chills, No Night Sweats, No Fatigue, No Malaise, No Appetite, No Other HEENT: No Head Aches, No Visual Changes, No Eye Pain, No Ear Pain, No Dysphasia , No Sinus Congestion, No Post Nasal Drip, No Sore Throat, No Other Pulmonary: Dyspnea CoughNo Pleuritic Chest Pain, No Other Cardiovascular: : EdemaNo: Chest Pain, Lt Headedness, Orthopnea, Other, Palpitations, Paroxysmal Noc. Dyspnea Objective-Cardiology Exam Last Set of Vital Signs Vital Signs 05/08/16 05/08/16 11:00 14:02 Temp 97.8 Pulse 65 Resp 22 B/P 137/50 Pulse Ox 92 O2 Delivery Nasal Cannula O2 Flow Rate 1.00 Capillary Refill : I&O Bad tableGeneral: Alert, Oriented X3, Cooperative HEENT: Atraumatic, PERRLA Neck: Supple, No JVD, No Thyromegaly Lungs: Clear to Auscultation, Normal Air Movement Heart: Normal S1, Normal S2, Other (irregular) Abdomen: Normal Bowel Sounds, Soft, No Tenderness Extremities: No Clubbing, No Cyanosis Skin: No Rashes Neuro: Normal Gait, Normal Speech, Cranial Nerves 3-12 NL Psych/Mental Status: Mental Status NL, Mood NL Results Lab Laboratory Tests 05/08/16 04:20 A/P-Cardiology Admission Diagnosis AFib HTN Renal failure Pneumonia Assessment/Plan Atrial fibrillation, rate is well-controlled. Patient is maintained on Cardizem , continue to monitor blood pressure Anemia, patient is reporting black tarry stool. No diarrhea. I will evaluate stool for occult blood, hold Eliquis, receiving blood transfusion, monitor H&H closely. May need consideration for endoscopy Acute renal failure, worsening renal function, receiving blood transfusion, I will give 1 L of normal saline and monitor renal function. Hypertension, tolerating Toprol and Cardizem well. Continue to monitor blood pressure Mild hyponatremia, continue to monitor while patient is receiving transfusions. Pneumonia, shortness of breath, wheezing, managed by primary care physician. Still having some shortness of breath and wheezing, MAT protocol, started on Rocephin and Zithromax. Continue to monitor Clinical Quality Measures DVT/VTE Risk/Contraindication: Contraindications-Pharm: Other *list below* AMY PIERRE MD May 08, 2016 14:15
[2016-05-08 14:30] VITALS: BP 131/61
[2016-05-08] MEDS ORDERED: PANTOPRAZOLE 40 MG (PROTONIX) TAB PO NR (14:30)
--- NOTE | 2016-05-08 15:06 | Occupational Therapy Eval ---
OT Evaluation-General/PLF Medical Diagnosis Admission Date May 07, 2016 at 08:31 Medical Diagnosis: bronchitis/UTI Onset Date: Apr 30, 2016 Therapy Diagnosis Therapy Diagnosis: decreased self care skills Height/Weight Height (Feet): 5 Height (Inches): 2.50 Weight (Pounds): 247 Weight (Ounces): 4.0 Precautions Precautions/Isolations: Standard Precautions Safety Interventions: Reorient-PRN Referral Physician: Jeff Medical History Pertinent Medical History: Atrial Fib, CAD, COPD, OA Additional Medical History Cervical cancer, anxiety, depression Reviewed History: Yes Social History Home: Single Level Current Living Status: Children Entry Into Home: Ramp ADL-Prior Level of Function ADL PLOF Comments Pt reports she has a home health aid M-F 8-12 to assist with test examiner and bathing. Pt states she is able to dress and toilet herself, but receives assist for bathing. Walks only short distances with FWW. Mostly uses Hoveround for mobility. Minimal activity level at home. DME/Equipment: Bath Chair, Bedside Commode, Shower OT Current Status Subjective Pt in bed, states she is tired today. Pt has received one unit of blood today. RN states pt okay for therapy. Pt initially states she has no pain, but reports discomfort in right shoulder with movement. Mental Status/Objective Patient Orientation: Person, Place Attachments: IV, Oxygen Current Glasses/Contacts: Yes Hearing Aids: No Dentures/Partials: No Hand Dominance: Right Upper Extremity ROM Grossly WFL Upper Extremity Coordination Intact Upper Extremity Sensation Intact per pt report Upper Extremity Strength Grossly 4-/5 ADL-Treatment ADL-Current Pt refused OOB activity at this time secondary to fatigue. Pt participated in UE assessment while in bed. Pt then completed bilateral UE exercises in supine to increase strength and activity tolerance needed for functional activity. Pt performed AROM exercises x10 reps at all joints. Rest breaks between exercises. Pt requires cues for breathing technique during exercises. Pt in bed with needs met after session. Functional [place] Measure 0=Not Assessed/NA 4=Minimal Assistance 1=Total Assistance 5=Supervision or Setup 2=Maximal Assistance 6=Modified [place] 3=Moderate Assistance 7=Complete IndependenceIRFPAI Quality Coding Scale 6 Independent with activity with or without an assistive device 5 Patient requires set up or clean up by helper. Patient completes activity by themselves 4 Supervision or touching assist (CGA). [place] provide cues , steadying assist 3 The helper provides less than half the effort to complete the activity 2 The helper provides more than half the effort to complete the activity 1 Dependent. The helper does all the effort to complete an activity 7 Patient refused to complete or attempt activity 9 The patient did not perform the activity before the current illness or injury 88 Not attempted due to Medical conditions or safety concerns Education OT Patient Education: Rehab process Teaching Recipient: Patient Teaching Methods: Discussion Response to Teaching: Reinforcement Needed OT Short Term Goals Short Term Goals 1=Demonstrate adherence to instructed precautions during ADL tasks. 2=Patient will verbalize/demonstrate understanding of assistive devices/ modifications for ADL. 3=Patient will improve strength/tolerance for activity to enable patient to perform ADL's. OT Chcf Goals Public Health Specialist Goals Time Frame: May 22, 2016 Eating (FIM): 6 Eating (QC): 6 Oral Hygiene (QC): 5 Grooming(FIM): 5 Toileting Hygiene (QC): 5 Upper Body Dressing(FIM): 5 Lower Body Dressing(FIM): 4 Toileting(FIM): 5 Toilet/Commode Transfer(FIM): 5 Toilet/Commode Transfer (QC): 5 Additional Goals: 1-Demonstrate ADL Tasks, 2-Verbalize Understanding, 3- ImproveStrength/Raul 1=Demonstrate adherence to instructed precautions during ADL tasks. 2=Patient will verbalize/demonstrate understanding of assistive devices/ modifications for ADL. 3=Patient will improve strength/tolerance for activity to enable patient to perform ADL's. OT Education/Plan Problem List/Assessment Assessment: Decreased Activ Tolerance, Decreased UE Strength, Dependent Transfers, Impaired Self-Care Skills Pt demonstrates decreased strength and activity tolerance impacting ability to perform ADLs and transfers. Pt to benefit from skilled OT intervention for ADL training, transfers, strengthening, and home safety education to maximize level of function and allow safe discharge. Discharge Recommendations Plan/Recommendations: Continue POC Treatment Plan/Plan of Care Treatment,Training & Education: Yes Patient would benefit from OT for education, treatment and training to promote independence in ADL's, mobility, safety and/or upper extremity function for ADL' s. Plan of Care: ADL Retraining, Functional Mobility, UE Funct Exercise/Act Treatment Duration: May 22, 2016 # of days/week 5 Visits Per Week: 5 Agreement: Yes Rehab Potential: Fair Time/GCodes Start Time: 14:25 Stop Time: 14:50 Total Time Billed (hr/min): 25 Billed Treatment Time 1 visit, EVM(10minutes), EX(15minutes) LUCY RAMOS OT May 08, 2016 15:06
[2016-05-08 17:05] VITALS: BP 171/74
[2016-05-08] MEDS: traZODone 50 MG (DESYREL) TAB PO SCH (20:16)
[2016-05-08] MEDS: ATORVASTATIN 20 MG (LIPITOR) TABLET PO SCH (20:16)
[2016-05-08 21:34] LABS: BASOPHILS % (AUTO) 0 % (0-10); EOSINOPHILS % (AUTO) 0 % (0-10); LYMPHOCYTES # (AUTO) 0.6 X 10^3 (1.0-4.0); LYMPHOCYTES % (AUTO) 5 % (12-44); MEAN CORPUSCULAR HEMOGLOBIN 27 PG (25-34); MEAN CORPUSCULAR HGB CONC 34 G/DL (32-36); MEAN CORPUSCULAR VOLUME 80 FL (80-99); MEAN PLATELET VOLUME 8.9 FL (7.4-10.4); MONOCYTES # (AUTO) 1.1 X 10^3 (0.0-1.0); MONOCYTES % (AUTO) 10 % (0-12); NEUTROPHILS # (AUTO) 9.8 X 10^3 (1.8-7.8); NEUTROPHILS % (AUTO) 85 % (42-75); PLATELET COUNT 404 10^3/uL (130-400); RED BLOOD COUNT 3.36 10^6/uL (4.35-5.85); RED CELL DISTRIBUTION WIDTH 15.5 % (10.0-14.5); WHITE BLOOD COUNT 11.5 10^3/uL (4.3-11.0)
[2016-05-08 21:55] LABS: ALBUMIN 3.3 G/DL (3.2-4.5); BILIRUBIN,TOTAL 0.2 MG/DL (0.1-1.0); CALCIUM 7.8 MG/DL (8.5-10.1); CREATININE SERUM 3.79 MG/DL (0.60-1.30); POTASSIUM 5.9 MMOL/L (3.6-5.0); TOTAL PROTEIN 6.7 G/DL (6.4-8.2)
--- NOTE | 2016-05-08 22:17 | Diagnostic Imaging Report ---
INDICATION: Shortness of breath. EXAMINATION: Portable erect AP chest at 9:23 p.m. FINDINGS: The prior exam of 05/07/16 suggested mild infiltrate in the right lung base. On this study, the density in the right lung base does seem somewhat greater than on the prior exam. The right upper lung and left lung are generally clear. However, there may be a small amount of fluid in both lung bases. The heart is borderline enlarged and the central pulmonary vascularity is somewhat prominent. There could be an element of mild pulmonary congestion present.. The mediastinum is not widened. The osseous structures are intact. IMPRESSION: The appearance of the chest has worsened somewhat since the prior study as there does seem to be slightly greater involvement of the right lung base by pneumonia/atelectasis. There is also a small amount of pleural fluid present in each lung base and there may be an element of mild pulmonary congestion present as well.. A followup study would be recommended for continued evaluation. Dictated by: Dictated on workstation # [id number]
[2016-05-08] MEDS ORDERED: SOD POLYSTERENE 15 GM/60 ML (KAYEXALATE) UNIT DOSE PO ONE (22:45)
--- NOTE | 2016-05-08 23:01 | Progress Note (SOAP) ---
Subjective Subjective/Events-last exam patient's urinary output decreased. Blood tests ordered showing kidney failure getting worse. Spoke to patient about dialysis. Patient wanting to go to [facility] in [place] for the worsening condition of her kidneys and pneumonia getting worse. Spoke to Dr. Avina hospitalist at [facility] and will except patient. Patient stable and will be transferred by ambulance to [facility] Objective Exam Vital Signs Date Time Temp Pulse Resp B/P Pulse Ox O2 Delivery O2 Flow Rate FiO2 05/08/16 20:01 Nasal Cannula 1.00 05/08/16 19:58 92 Nasal Cannula 1.00 05/08/16 17:05 97.1 61 24 171/74 95 Nasal Cannula 1.00 05/08/16 14:30 98.0 69 22 131/61 94 05/08/16 14:02 92 Nasal Cannula 1.00 05/08/16 11:15 97.6 68 20 183/63 95 Room Air 05/08/16 11:00 97.8 65 22 137/50 95 Nasal Cannula 1.00 05/08/16 09:00 Nasal Cannula 2.00 05/08/16 07:29 92 Nasal Cannula 1.00 I & O 05/08/16 07:00 Intake Total 1570 ml Output Total 450 ml Balance 1120 ml Capillary Refill : General Appearance: No Apparent Distress WD/WN HEENT: Normal ENT Inspection Neck: Normal Inspection Respiratory: Chest Non Tender Normal Breath Sounds No Accessory Muscle Use No Respiratory Distress Cardiovascular: Irregularly Irregular Results Lab Laboratory Tests 05/08/16 04:20 05/08/16 21:25 Laboratory Tests 05/08/16 04:20: Alanine Aminotransferase (ALT/SGPT) 18, Albumin 3.2, Alkaline Phosphatase 53, Anion Gap 10, Aspartate Amino Transf (AST/SGOT) 14, BUN/Creatinine Ratio 18, Blood Urea Nitrogen 64H, Calcium Level 8.0L, Carbon Dioxide Level 16L, Chloride Level 101, Creatinine 3.55H, Estimat Glomerular Filtration Rate 12, Glucose Level 158H, Hematocrit 24L, Hemoglobin 7.7L, Mean Corpuscular Hemoglobin 26, Mean Corpuscular Hemoglobin Concent 33, Mean Corpuscular Volume 80, Mean Platelet Volume 9.1, Platelet Count 364, Potassium Level 5.4H, Red Blood Count 2.93L, Red Cell Distribution Width 15.2H, Sodium Level 127L, Total Bilirubin 0.2 , Total Protein 6.3L, White Blood Count 8.3 05/08/16 21:25: Alanine Aminotransferase (ALT/SGPT) 28, Albumin 3.3, Alkaline Phosphatase 53, Anion Gap 10, Aspartate Amino Transf (AST/SGOT) 33, BUN/Creatinine Ratio 18, Blood Urea Nitrogen 69H, Calcium Level 7.8L, Carbon Dioxide Level 16L, Chloride Level 100, Creatinine 3.79H, Estimat Glomerular Filtration Rate 11, Glucose Level 151H, Hematocrit 27L, Hemoglobin 9.1L, Mean Corpuscular Hemoglobin 27, Mean Corpuscular Hemoglobin Concent 34, Mean Corpuscular Volume 80, Mean Platelet Volume 8.9, Platelet Count 404H, Potassium Level 5.9H, Red Blood Count 3.36L, Red Cell Distribution Width 15.5H, Sodium Level 126L, Total Bilirubin 0.2 , Total Protein 6.7, White Blood Count 11.5H, B-Type Natriuretic Peptide 242.0H , Basophils # (Auto) 0.0, Basophils (%) (Auto) 0, Eosinophils # (Auto) 0.0, Eosinophils (%) (Auto) 0, Lymphocytes # (Auto) 0.6L, Lymphocytes (%) (Auto) 5L, Monocytes # (Auto) 1.1H, Monocytes (%) (Auto) 10, Neutrophils # (Auto) 9.8H, Neutrophils (%) (Auto) 85H Assessment/Plan Assessment/Plan Assess & Plan/Chief Complaint weakness. Bronchitis. Pneumonia. Anemia. Patient to receive a unit of blood today. . Patient in renal failure. Patient has worse pneumonia. Potassium 5.9. Spoke to patient about dialysis. Patient wants dialysis. Called [facility] spoke to hospitalist Dr. Avina. He will take patient at [facility] for admission Diagnosis/Problems: Clinical Quality Measures DVT/VTE Risk/Contraindication: Contraindications-Pharm: Other *list below* WILLARD LOPEZ DO May 08, 2016 23:01
[2016-05-08 23:03] VITALS: BP 139/70
[2016-05-09 00:10] VITALS: BP 139/70
[2016-05-09] MEDS ORDERED: PANTOPRAZOLE 40 MG (PROTONIX) TAB PO SCH (07:00)
--- NOTE | 2016-05-09 13:04 | Therapy Team Discharge Summary ---
Therapy Discharge Summary Discharge Recommendations Date of Discharge May 09, 2016 at 00:10 Occupational Therapy Pt was admitted to [facility] after acute hospitalization for bronchitis/UTI. Evaluation was completed on 05/08/16 and pt was discharged to outside facility on same day. Therefore, pt did not meet any OT goals. D/C SWB OT at this time. PT Oil Pumper Goals Prison Goals PT Oil Pumper Goals Time Frame: May 17, 2016 Transfers (B,C,W/C) (FIM): 6 Sit to Lying (QC): 5 Lying-Sitting on Side/Bed(QC): 5 Sit to Stand (QC): 5 Chair/Ofi-oz-Kzghf Xfer(QC): 5 Does the Patient Walk: Yes Gait (FIM): 2 Gait distance (FIM): 8=659-95 ft Distance: 50' Walk 50ft with 2 Turns (QC): 5 Walk 150 ft (QC): 88 Gait Level of Assist: 5 Gait Assistive Device: FWW Does the Pt use WC or Scooter?: Yes OT Prison Goals Prison Goals Time Frame: May 22, 2016 Eating (FIM): 6 Eating (QC): 6 Oral Hygiene (QC): 5 Grooming(FIM): 5 Upper Body Dressing(FIM): 5 Lower Body Dressing(FIM): 4 Toileting(FIM): 5 Toileting Hygiene (QC): 5 Toilet/Commode Transfer(FIM): 5 Toilet/Commode Transfer (QC): 5 Additional Goals: 1-Demonstrate ADL Tasks, 2-Verbalize Understanding, 3- ImproveStrength/Raul 1=Demonstrate adherence to instructed precautions during ADL tasks. 2=Patient will verbalize/demonstrate understanding of assistive devices/ modifications for ADL. 3=Patient will improve strength/tolerance for activity to enable patient to perform ADL's. LUCY RAMOS OT May 09, 2016 13:04
--- NOTE | 2016-05-10 07:20 | Discharge Summary ---
Diagnosis/Chief Complaint Date of Admission May 07, 2016 at 08:31 Date of Discharge May 09, 2016 at 00:10 Discharge Diagnosis acute renal failure. Pneumonia. Atrial fibrillation. Hypertension history. Anemia. Weakness. Bronchitis. Hyperkalemia Discharge Summary Consultations cardiology Discharge Physical Examination Allergies: Coded Allergies: No Known Drug Allergies (Unverified , 04/07/10) Vitals & I&Os Vital Signs Date Time Temp Pulse Resp B/P Pulse Ox O2 Delivery O2 Flow Rate FiO2 05/09/16 00:10 72 24 139/70 94 Nasal Cannula 2.00 05/08/16 23:03 98.4 Hospital Course patient's GFR got worse. Patient's chest x-ray for pneumonia Worse. Patient willing to have dialysis. Patient transferred to [facility] to be evaluated by renal specialist Labs (last 24 hrs) Laboratory Tests 05/08/16 04:20: Alanine Aminotransferase (ALT/SGPT) 18, Albumin 3.2, Alkaline Phosphatase 53, Anion Gap 10, Aspartate Amino Transf (AST/SGOT) 14, BUN/Creatinine Ratio 18, Blood Urea Nitrogen 64H, Calcium Level 8.0L, Carbon Dioxide Level 16L, Chloride Level 101, Creatinine 3.55H, Estimat Glomerular Filtration Rate 12, Glucose Level 158H, Hematocrit 24L, Hemoglobin 7.7L, Mean Corpuscular Hemoglobin 26, Mean Corpuscular Hemoglobin Concent 33, Mean Corpuscular Volume 80, Mean Platelet Volume 9.1, Platelet Count 364, Potassium Level 5.4H, Red Blood Count 2.93L, Red Cell Distribution Width 15.2H, Sodium Level 127L, Total Bilirubin 0.2 , Total Protein 6.3L, White Blood Count 8.3 05/08/16 21:25: Alanine Aminotransferase (ALT/SGPT) 28, Albumin 3.3, Alkaline Phosphatase 53, Anion Gap 10, Aspartate Amino Transf (AST/SGOT) 33, BUN/Creatinine Ratio 18, Blood Urea Nitrogen 69H, Calcium Level 7.8L, Carbon Dioxide Level 16L, Chloride Level 100, Creatinine 3.79H, Estimat Glomerular Filtration Rate 11, Glucose Level 151H, Hematocrit 27L, Hemoglobin 9.1L, Mean Corpuscular Hemoglobin 27, Mean Corpuscular Hemoglobin Concent 34, Mean Corpuscular Volume 80, Mean Platelet Volume 8.9, Platelet Count 404H, Potassium Level 5.9H, Red Blood Count 3.36L, Red Cell Distribution Width 15.5H, Sodium Level 126L, Total Bilirubin 0.2 , Total Protein 6.7, White Blood Count 11.5H, B-Type Natriuretic Peptide 242.0H , Basophils # (Auto) 0.0, Basophils (%) (Auto) 0, Eosinophils # (Auto) 0.0, Eosinophils (%) (Auto) 0, Lymphocytes # (Auto) 0.6L, Lymphocytes (%) (Auto) 5L, Monocytes # (Auto) 1.1H, Monocytes (%) (Auto) 10, Neutrophils # (Auto) 9.8H, Neutrophils (%) (Auto) 85H Laboratory Tests 05/08/16 04:20 05/08/16 21:25 Pending Labs Laboratory Tests 05/08/16 04:20: Alanine Aminotransferase (ALT/SGPT) 18, Albumin 3.2, Alkaline Phosphatase 53, Anion Gap 10, Aspartate Amino Transf (AST/SGOT) 14, BUN/Creatinine Ratio 18, Blood Urea Nitrogen 64, Calcium Level 8.0, Carbon Dioxide Level 16, Chloride Level 101, Creatinine 3.55, Estimat Glomerular Filtration Rate 12, Glucose Level 158, Hematocrit 24, Hemoglobin 7.7, Mean Corpuscular Hemoglobin 26, Mean Corpuscular Hemoglobin Concent 33, Mean Corpuscular Volume 80, Mean Platelet Volume 9.1, Platelet Count 364, Potassium Level 5.4, Red Blood Count 2.93, Red Cell Distribution Width 15.2, Sodium Level 127, Total Bilirubin 0.2, Total Protein 6.3, White Blood Count 8.3 05/08/16 21:25: Alanine Aminotransferase (ALT/SGPT) 28, Albumin 3.3, Alkaline Phosphatase 53, Anion Gap 10, Aspartate Amino Transf (AST/SGOT) 33, BUN/Creatinine Ratio 18, Blood Urea Nitrogen 69, Calcium Level 7.8, Carbon Dioxide Level 16, Chloride Level 100, Creatinine 3.79, Estimat Glomerular Filtration Rate 11, Glucose Level 151, Hematocrit 27, Hemoglobin 9.1, Mean Corpuscular Hemoglobin 27, Mean Corpuscular Hemoglobin Concent 34, Mean Corpuscular Volume 80, Mean Platelet Volume 8.9, Platelet Count 404, Potassium Level 5.9, Red Blood Count 3.36, Red Cell Distribution Width 15.5, Sodium Level 126, Total Bilirubin 0.2, Total Protein 6.7, White Blood Count 11.5, B-Type Natriuretic Peptide 242.0, Basophils # (Auto) 0.0, Basophils (%) (Auto) 0, Eosinophils # (Auto) 0.0, Eosinophils (%) (Auto) 0, Lymphocytes # (Auto) 0.6, Lymphocytes (%) (Auto) 5, Monocytes # (Auto) 1.1, Monocytes (%) (Auto) 10, Neutrophils # (Auto) 9.8, Neutrophils (%) (Auto) 85 Radiology Reviewed chest x-ray worse with infiltrates Discharge Home Medications: Active Scripts Active Reported Albuterol Sulfate 2.5 Mg/3 Ml Vial.neb 2.5 Mg IH TID PRN Ventolin Hfa (Albuterol Sulfate) 18 Gm Hfa.aer.ad 2 Puff IH TID PRN Alprazolam 0.25 Mg Tablet 0.25 Mg PO BID PRN Tramadol HCl 50 Mg Tablet 50 Mg PO BID Eliquis (Apixaban) 2.5 Mg Tablet 2.5 Mg PO BID Omeprazole 40 Mg Capsule.dr 40 Mg PO DAILY LAST FILLED 11/07/15 #90 Amlodipine Besylate 10 Mg Tablet 10 Mg PO DAILY Trazodone HCl 50 Mg Tablet 50 Mg PO HS Loratadine 10 Mg Tablet 10 Mg PO DAILY Simvastatin 40 Mg Tablet 40 Mg PO HS Furosemide 40 Mg Tablet 40 Mg PO DAILY PRN ONLY TAKES IS SHE HAS A WEIGHT GAIN OF 3 POUNDS. Instructions to patient/family Please see electonic discharge instructions given to patient. Clinical Quality Measures DVT/VTE Risk/Contraindication: Contraindications-Pharm: Other *list below* WILLARD LOPEZ DO May 10, 2016 07:20
--- NOTE | 2016-05-14 13:40 | Therapy Team Discharge Summary ---
Therapy Discharge Summary Discharge Recommendations Date of Discharge May 09, 2016 at 00:10 Physical Therapy Patient seen x 2 sessions by PT to address functional strength and mobility. Patient transferred to [facility] for continued care by a renal specialist. No goals met. 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 Senior Living Goals PT Senior Living Goals Time Frame: May 17, 2016 Transfers (B,C,W/C) (FIM): 6 Sit to Lying (QC): 5 Lying-Sitting on Side/Bed(QC): 5 Sit to Stand (QC): 5 Rollin Chair/Yii-ld-Aesdo Xfer(QC): 5 Does the Patient Walk: Yes Gait (FIM): 2 Gait distance (FIM): 2=963-69 ft Distance: 50' Walk 50ft with 2 Turns (QC): 5 Walk 150 ft (QC): 88 Gait Level of Assist: 5 Gait Assistive Device: FWW Does the Pt use WC or Scooter?: Yes OT Internet Retailer Goals Senior Living Goals Time Frame: May 22, 2016 Eating (FIM): 6 Eating (QC): 6 Oral Hygiene (QC): 5 Grooming(FIM): 5 Toileting Hygiene (QC): 5 Upper Body Dressing(FIM): 5 Lower Body Dressing(FIM): 4 Toileting(FIM): 5 Toilet/Commode Transfer(FIM): 5 Toilet/Commode Transfer (QC): 5 Additional Goals: 1-Demonstrate ADL Tasks, 2-Verbalize Understanding, 3- ImproveStrength/Raul 1=Demonstrate adherence to instructed precautions during ADL tasks. 2=Patient will verbalize/demonstrate understanding of assistive devices/ modifications for ADL. 3=Patient will improve strength/tolerance for activity to enable patient to perform ADL's. MATEUS MARK PT May 14, 2016 13:40
== END 2016-05-09 00:10 | disposition short-term general hospital (02) | DRG 190 ==
LOC: 4TH 08:31
PROVIDERS: ADMIT Family Medicine; ATTEND Family Medicine
DX: J44.0 Chronic obstructive pulmonary disease with (acute) lower respiratory infection (principal); J20.9 Acute bronchitis, unspecified; J18.9 Pneumonia, unspecified organism; N17.9 Acute kidney failure, unspecified; E87.1 Hypo-osmolality and hyponatremia; I48.91 Unspecified atrial fibrillation; I12.9 Hypertensive chronic kidney disease with stage 1 through stage 4 chronic kidney disease, or unspecified chronic kidney disease; N18.9 Chronic kidney disease, unspecified; D64.9 Anemia, unspecified
CPT/HCPCS: 36415; 71010; 71020; 80053; 83880; 85025; 85027; 86850; 86900; 86901; 86920; 94640; 94760

== ENCOUNTER 2016-05-22 12:47 | Inpatient (IN) | payer MEDICARE, MEDICAID ==
[~2016-05-22] VITALS: Ht 157.5 cm; Wt 99.8 kg
[~2016-05-22 12:47] MED LIST changes: -CATHETER FLUSH 10 ML SYR IV PRN; -FUROSEMIDE 40 MG (LASIX) TAB PO PRN; -SUCRALFATE 1 GM (CARAFATE) TAB PO PRN; -guaiFENesin/DM (ROBITUSSIN DM) 10 ML UDC PO PRN
--- OUTSIDE RECORDS SUMMARY | 2016-05-22 12:53 | XMS REPORT | Continuity of Care Document ---
Author Author [facility] Organization [facility] Address Unknown Phone Unavailable Care Team Providers Care Revenue Liaison Name Role Phone WILLARD LOPEZ DO PCP Insurance Providers Payer Name Policy Number Subscriber Name Relationship Wps Medicare [id number] Be Bill 18 Self / Same As Patient [facility] [id number] Be Bill 18 Self / Same As Patient Advance Directives Directive Response Recorded Date/Time Advance Directives No 08/05/13 9:37am Health Care Power of Food Service Sales Representatives No 08/05/13 9:37am Organ Donor No 08/05/13 [...] PO EVERY OTHER DAY 11/07/09 10/24/11 Discontinued Stokes-3 Fatty Acids/Fish Oil 1,000 Mg PO DAILY [...] was developed and its performance characteristicsdetermined by [facility]. It has not been cleared or approved [...] <1:80 - Interpretative data is available online at:[email or web address] Enter Test Number:[id number] INTERPRETIVE DATA IF GIANCARLO SCREEN POSITIVE TITER [...] H 0-30 PT IN OUTPT AREA-FAX TO [phone] Ferritin November 07, 2010 4:15pm 88 NG/ML [...] SELECTED GROUPS OF HIGH RISK PATIENTS. [employer] CONSENSUS CONFERENCE ON ANTITHROMBOTIC THERAPY (2000). Prothrombin Time November 09, 2013 11:12am 25.1 SEC H 12.2-14.7 FISHER TERRAPIN Antibody June 21, 2011 12:47pm <20 - [...] >=25.0 POSITIVE THIS TEST WAS PERFORMED AT [facility] [id number] [place] [phone] Arnol BAÑUELOS Saccharomyces cerevisiae IgG Ab November 07, 2010 4:15pm 4.7 U - Reference Range (ASCA IGG AB): <=20.0 NEGATIVE 20.1-29.9 EQUIVOCAL >=30.0 POSITIVE THIS TEST WAS PERFORMED AT [facility] [id number] [place] [phone] Arnol BAÑUELOS Scl-70 (Scleroderma) Antibody June 21, 2011 12:47pm <20 EU/ML - Interpretative data is available online at:[email or web address] Enter Test Number:[id number] Sodium Level October 08, 2013 9:44am 135 [...] 2010 2:45pm Not Performed - Urine Specific [place] August 05, 2013 10:05am 1.010 L - [...] October 23, 2010 11:10am Transfusion Reaction Form [id number] - Estimat Glomerular Filtration Rate October 08, [...] Protein Electrophoresis Note October 17, 2010 5:55am [id number] - Free [place] Light Chains, Quant October 17, 2010 5:55am 39.20 H MG/L - Free [place] Light Chains, Quant October 17, 2010 5:55am 31.79 H MG/L - Free [place]/Lambda Light Chain Ratio October 17, 2010 5:55am 1.23 RATIO - Protein Electrophoresis Pathologist October 17, 2010 5:55am SEE PATH REPORT - Cardiac Panel Pathologist Review October 12, 2010 12:12am SEE CARDIAC PATH REV - Comments to Payroll Accounting Manager: USE BLOOD FROM EARLY AM Stool Occult [...] SELECTED GROUPS OF HIGH RISK PATIENTS. [employer] CONSENSUS CONFERENCE ON ANTITHROMBOTIC THERAPY (2000). Blood Culture Peripheral-Rt Forearm August 05, 2013 10:15am No growth MRSA Screen Nasal October 24, 2011 7:20am MRSA not isolated Urine Culture Urine-Clean Catch August 05, 2013 10:05am Procedures No known history of procedures. Encounters Encounter Location Date/Time Registered Clinic Via [facility] 12/22/13 8:03pm Discharged Recurring Via [facility] 11/09/13 11:07am
--- NOTE | 2016-05-22 13:11 | ED General ---
General Stated Complaint: N/V Source of Information: Family (DAUGHTER GIVES ALL INFORMATION--PT IS UNABLE TO GIVE ANY RELEVANT INFORMATION, AND DAUGHTER IS SOMEWHAT LIMITED HISTORIAN, ESPECIALLY ABOUT PMH), Old Records (ALL PMH IS FROM OLD RECORDS) History of Present Illness Time Seen by Provider: 12:57 Initial Comments PT ARRIVES VIA EMS FROM HOME EMS WAS CALLED FOR NAUSEA /VOMITING PT HAS O2 SATS IN 50'S ON O2 ON ARRIVAL IS UNCLEAR WHEN PT'S SYMPTOMS BEGAN PT CANNOT GIVE ANY COMPLAINTS, OR STATE IF SHE IS SHORT OF BREATH OR NOT, OR IF SHE HAS ANY PAIN ANYWHERE, OR IF SHE IS NAUSEATED--PT WITH DEMENTIA PT WAS RECENTLY ADMITTED HERE THEN TRANSFERRED TO [facility] AND HAS RENAL FAILURE , NOT ON DIALYSIS AT THIS TIME. 04/30-05/09 WAS ADMITTED HERE, AND HAS BEEN OUT OF [facility] SINCE 05/14/16 DAUGHTER LATER REPORTS THAT PT WAS DX WITH PNEUMONIA WHILE AT [facility] AND RECENTLY FINISHED ANTIBIOTIC ( FLAGYL, PER MEDICATION LIST ON DISMISSAL PAPERS FROM [facility]) PT ALSO HAD TRANSFUSION WHILE IN HOSPITAL PT IS DNR/DNI PCP: DR. LOPEZ Allergies and Home Medications Allergies Coded Allergies: No Known Drug Allergies (Unverified , 04/07/10) Home Medications Albuterol Sulfate 18 Gm Hfa.aer.ad 2 PUFF IH TID PRN PRN SHORTNESS OF BREATH ( Reported) Albuterol Sulfate 2.5 Mg/3 Ml Vial.neb 2.5 MG IH TID PRN PRN SHORTNESS OF BREATH (Reported) Alprazolam 0.25 Mg Tablet 0.25 MG PO BID PRN PRN ANXIETY (Reported) Amlodipine Besylate 10 Mg Tablet 10 MG PO DAILY (Reported) Apixaban 2.5 Mg Tablet 2.5 MG PO BID (Reported) Furosemide 40 Mg Tablet 40 MG PO DAILY PRN PRN FLUID RETENTION (Reported) ONLY TAKES IS SHE HAS A WEIGHT GAIN OF 3 POUNDS. Loratadine 10 Mg Tablet 10 MG PO DAILY (Reported) Omeprazole 40 Mg Capsule.dr 40 MG PO DAILY (Reported) LAST FILLED 11/07/15 #90 Simvastatin 40 Mg Tablet 40 MG PO HS (Reported) Tramadol HCl 50 Mg Tablet 50 MG PO BID (Reported) Trazodone HCl 50 Mg Tablet 50 MG PO HS (Reported) Constitutional: other (PT UNABLE TO GIVE ANY INFORMATION) Past Orpznzn-Npyybz-Totkga Hx Patient Social History Alcohol Use: Denies Use Recreational Drug Use: No Smoking Status: Never a Smoker Former Smoker/When Quit: Apr 28, 2004 Recent Hopitalizations: No Immunizations Up To Date Date of Pneumonia Vaccine: Dec 28, 2007 Date of Influenza Vaccine: Mar 19, 2016 Seasonal Allergies Seasonal Allergies: Yes Surgeries HX Surgeries: Yes (RIGHT TOTAL HIP REPLACEMENT) Surgeries: Hysterectomy, Joint Replacement, Orthopedic Respiratory Hx Respiratory Disorders: Yes Respiratory Disorders: Asthma, COPD Cardiovascular Hx Cardiac Disorders: Yes Cardiac Disorders: Atrial Fibrillation, Chronic Edema/Swelling, Coronary Artery Disease, High Cholesterol, Hypertension Neurological Hx Neurological Disorders: Yes Neurological Disorders: Dementia Reproductive System Hx Reproductive Disorders: Yes (CERVICAL CANCER WITH HYSTERECTOMY) Sexually Transmitted Disease: No STENOTYPE OPERATOR History: Hysterectomy Genitourinary Hx Genitourinary Disorders: Yes (URINARY RETENTION) Gastrointestinal Hx Gastrointestinal Disorders: No Musculoskeletal Hx Musculoskeletal Disorders: Yes (RIGHT TOTAL HIP, OSTEOARTHRITIS) Musculoskeletal Disorders: Arthritis Endocrine Hx Endocrine Disorders: No HEENT HX ENT Disorders: No Cancer Hx Cancer: Yes Cancer: Cervical Psychosocial Hx Psychiatric Problems: Yes Behavioral Health Disorders: Anxiety, Depression Integumentary HX Skin/Integumentary Disorder: No Blood Transfusions Hx Blood Disorders: Yes (Anemia) Family Medical History Significant Family History: No Pertinent Family Hx Family Medial History: FH: CVA (cerebrovascular accident) 19 MOTHER G8 SISTER Physical Exam Vital Signs Vital Sign - Last 12Hours Capillary Refill : General Appearance: Moderate Distress Obese Other (LETHARGIC) HEENT: PERRL/EOMI Respiratory: Accessory Muscle Use Decreased Breath Sounds (DECREASED AERATION THROUGHOUT ALL LUNG MARCIAL) Rales (IN BASES) Respiratory Distress (PANTING, TACHYPNEIC WITH RETRACTIONS. ) Cardiovascular: No Murmur Tachycardia Gastrointestinal: Non Tender Soft Extremity: Pedal Edema (4+ EDEMA BILATERALLY) Slow Capillary Refill Neurologic/Psychiatric: Alert No Motor/Sensory Deficits (GROSSLY INTACT) Other (IS UNCLEAR IF PT IS ORIENTED TO TIME OR SITUATION. IS ORIENTED TO PERSON AND KNOWS SHE IS IN HOSPITAL. ) Skin: Warm/Dry Pallor Progress/Results/Core Measures Results/Orders Lab Results Laboratory Tests Test 05/22/16 13:05 05/22/16 13:13 05/22/16 13:23 Range/Units Marco Test YES-POS Arterial Blood Base Excess 0.1 -2.5-2.5 MMOL/L Arterial Blood HCO3 30 H 23-27 MMOL/L Arterial Blood Oxygen Saturation 83 L 94-100 % Arterial Blood Partial Pressure CO2 84 *H 35-45 MMHG Arterial Blood Partial Pressure O2 54 L 79-93 MMHG Arterial Blood Total CO2 32.2 H 21.0-31.0 MMOL/L Arterial Blood pH 7.16 *L 7.37-7.43 Blood Gas Inspired Oxygen 90% Blood Gas Patient Temperature 98.7 Blood Gas Puncture Site RT RADIAL Blood Gas Ventilator Setting NO Activated Partial Thromboplast Time 23 L 24-35 SEC Alanine Aminotransferase (ALT/SGPT) 9 0-55 U/L Albumin 2.9 L 3.2-4.5 G/DL Alkaline Phosphatase 50 40-136 U/L Amylase Level 56 25-125 U/L Anion Gap 9 5-14 MMOL/L Aspartate Amino Transf (AST/SGOT) 25 5-34 U/L B-Type Natriuretic Peptide 223.1 H <100.0 PG/ML BUN/Creatinine Ratio 14 Basophils # (Auto) 0.0 0.0-0.1 10^3/uL Basophils (%) (Auto) 0 0-10 % Blood Urea Nitrogen 36 H 7-18 MG/DL Calcium Level 7.6 L 8.5-10.1 MG/DL Carbon Dioxide Level 22 21-32 MMOL/L Chloride Level 106 98-107 MMOL/L Creatine Kinase MB 1.0 <6.6 NG/ML Creatinine 2.63 H 0.60-1.30 MG/DL Eosinophils # (Auto) 0.0 0.0-0.3 10^3/uL Eosinophils (%) (Auto) 0 0-10 % Estimat Glomerular Filtration Rate 17 Glucose Level 112 H 70-105 MG/DL Hematocrit 28 L 35-52 % Hemoglobin 8.4 L 11.5-16.0 G/DL INR Comment 1.1 0.8-1.4 Lactic Acid Level 0.6 0.5-2.0 MMOL/L Lipase 22 8-78 U/L Lymphocytes # (Auto) 2.3 1.0-4.0 X 10^3 Lymphocytes (%) (Auto) 18 12-44 % Magnesium Level 2.3 1.8-2.4 MG/DL Mean Corpuscular Hemoglobin 26 25-34 PG Mean Corpuscular Hemoglobin Concent 30 L 32-36 G/DL Mean Corpuscular Volume 86 80-99 FL Mean Platelet Volume 9.2 7.4-10.4 FL Monocytes # (Auto) 1.1 H 0.0-1.0 X 10^3 Monocytes (%) (Auto) 8 0-12 % Neutrophils # (Auto) 9.4 H 1.8-7.8 X 10^3 Neutrophils (%) (Auto) 73 42-75 % Platelet Count 283 130-400 10^3/uL Potassium Level 5.1 H 3.6-5.0 MMOL/L Prothrombin Time 13.4 12.2-14.7 SEC Red Blood Count 3.21 L 4.35-5.85 10^6/uL Red Cell Distribution Width 16.2 H 10.0-14.5 % Sodium Level 137 135-145 MMOL/L TSH [place] Testing 1.31 0.35-4.94 UIU/ML Total Bilirubin 0.3 0.1-1.0 MG/DL Total Creatine Kinase 9 L 29-168 U/L Total Protein 5.8 L 6.4-8.2 G/DL Troponin I < 0.30 <0.30 NG/ML White Blood Count 12.8 H 4.3-11.0 10^3/uL Urine Amorphous Sediment FEW KELLY URATES H /LPF Urine Bacteria NEGATIVE /HPF Urine Bilirubin NEGATIVE NEGATIVE Urine Casts PRESENT /LPF Urine Clarity CLEAR Urine Color CHANI H Urine Crystals PRESENT H /LPF Urine Culture Indicated NO Urine Glucose (UA) NEGATIVE NEGATIVE Urine Hyaline Casts 5-10 H /LPF Urine Ketones NEGATIVE NEGATIVE Urine Leukocyte Esterase 1+ H NEGATIVE Urine Mucus NEGATIVE /LPF Urine Nitrite NEGATIVE NEGATIVE Urine Protein 4+ NEGATIVE Urine RBC NONE /HPF Urine RBC (Auto) NEGATIVE NEGATIVE Urine Specific [place] 1.025 H 1.016-1.022 Urine Squamous Epithelial Cells 0-2 /HPF Urine Urobilinogen NORMAL NORMAL MG/DL Urine WBC 2-5 /HPF Urine pH 5 5-9 Micro Results Microbiology 05/22/16 Influenza Types A,B Antigen (KANNAN) - Final, Complete My Orders Orders-VÍCTOR ALDRIDGE DO Saline Lock/Iv-Start (05/22/16 13:03) Ekg Tracing (05/22/16 13:03) Catheter(Urinary) Insert & Ass 03,15 (05/22/16 13:03) O2 (05/22/16 13:03) Monitor-Rhythm Ecg Trace Only (05/22/16 13:03) Amylase (1/25/17 13:03) Arterial Blood Gas (05/22/16 13:03) BNP (05/22/16 13:03) Cbc With Automated Diff (05/22/16 13:03) Comprehensive Metabolic Panel (05/22/16 13:03) Creatine Kinase (05/22/16 13:03) Creatine Kinase Mb (05/22/16 13:03) Lipase (05/22/16 13:03) Magnesium (05/22/16 13:03) Protime With Inr (05/22/16 13:03) Partial Thromboplastin Time (05/22/16 13:03) Thyroid Analyzer (05/22/16 13:03) Troponin I (05/22/16 13:03) Ua Culture If Indicated (05/22/16 13:03) Chest 1 View, Ap/Pa Only (05/22/16 13:03) Furosemide Injection (Lasix Injection) (05/22/16 13:15) Diltiazem Injection (Cardizem Injection) (05/22/16 13:15) Ekg Tracing (05/22/16 13:43) Sodium Chloride (Ad... W/Diltiazem Drip (05/22/16 14:00) Diltiazem Drip (Cardizem Drip) (05/22/16 13:41) Sodium Chloride (Add-[place]) (Ns (Add-V (05/22/16 13:41) Enoxaparin Injection (Lovenox Injection) (05/22/16 14:15) Ceftriaxone Injection (Rocephin Injectio (05/22/16 14:15) Lactic Acid Analyzer (05/22/16 14:12) Blood Culture (05/22/16 14:12) Influenza A And B Antigens (05/22/16 14:12) Medications Given in ED Current Medications Medications Dose Ordered Sig/Gamaliel Route Start Time Stop Time Status Last Admin Dose Admin Ceftriaxone Sodium/Sodium Chloride 50 ml @ 100 mls/hr ONCE ONCE IV 05/22/16 14:15 05/22/16 14:44 DC 05/22/16 14:16 100 MLS/HR Diltiazem HCl 20 mg ONCE ONCE IVP 05/22/16 13:15 05/22/16 13:16 DC 05/22/16 13:26 20 MG Enoxaparin Sodium 100 mg 100 mg ONCE ONCE SC 05/22/16 14:15 05/22/16 14:16 DC 05/22/16 14:17 100 MG Furosemide 80 mg ONCE ONCE IVP 05/22/16 13:15 05/22/16 13:16 DC 05/22/16 13:26 80 MG Vital Signs/I&O Vital Sign - Last 12Hours 05/22/16 05/22/16 05/22/16 05/22/16 12:50 12:50 13:55 13:55 Temp 98.7 Pulse 139 107 107 Resp 36 13 13 B/P 147/56 179/71 179/71 Pulse Ox 48 99 89 O2 Delivery Nasal Cannula Bi-pap O2 Flow Rate 2 Progress Note : Progress Note O2 SATS IN 50'S ON ARRIVAL, PLACED ON O2 VIA NRB MASK WITH SATS UP TO 70'S, THEN PLACED ON BIPAP AND O2 SATS UP TO 100% HEART RATE SLOWED WITH CARDIZEM, PLACED ON DRIP LENGTHY DISCUSSION WITH FAMILY, DAUGHTER IS DPOA. PT IS DNR/DNI AND DO NOT FEEL THAT PT WOULD WANT DIALYSIS, SO WILL ADMIT HERE. DISCUSSED PLACING PT ON COMFORT CARE AT SOME POINT IF PT DID NOT HAVE SIGNIFICANT IMPROVEMENT. WILL CONSULT UTILITY ASSEMBLER ECG Initial ECG Impression Time: 13:04 Initial ECG Rate: 136 Initial ECG Rhythm: A Fib/Flutter Initial ECG Comparisson: Unchanged EKG : EKG Time: 13:37 Rate: 115 Rhythm: A Fib/Flutter ECG Comparisson: Unchanged Diagnostic Imaging Comments CXR--RIGHT SIDED PNEUMONIA/MID LUNG--PER RADIOLOGIST REPORT @ 1415 Reviewed: Reviewed by Me Departure Communication Progress Notes 1337--SPOKE WITH DR. LOPEZ, ACCEPTS PT FOR ADMIT. Impression Impression: Primary Impression: Acute respiratory failure Additional Impressions: RIGHT SIDED PNEUMONIA Renal failure Anemia Atrial fibrillation with rapid ventricular response Dementia Disposition: ADMITTED INPATIENT Condition: Stable Decision to Admit Reason: Admit from ER (General) Decision to Admit/Date: May 22, 2016 Time/Decision to Admit Time: 13:40 Departure-Patient Inst. Referrals: WILLARD LOPEZ DO (PCP/Family) Primary Care Physician VÍCTOR ALDRIDGE DO May 22, 2016 13:11
[2016-05-22] MEDS ORDERED: FUROSEMIDE 40 MG/4 ML INJ (LASIX) IVP ONE (13:15)
[2016-05-22] MEDS ORDERED: DILTIAZEM 25 MG/5 ML INJ (CARDIZEM) VIAL IVP ONE (13:15)
[2016-05-22 13:22] LABS: BASOPHILS % (AUTO) 0 % (0-10); EOSINOPHILS % (AUTO) 0 % (0-10); LYMPHOCYTES # (AUTO) 2.3 X 10^3 (1.0-4.0); LYMPHOCYTES % (AUTO) 18 % (12-44); MEAN CORPUSCULAR HEMOGLOBIN 26 PG (25-34); MEAN CORPUSCULAR HGB CONC 30 G/DL (32-36); MEAN CORPUSCULAR VOLUME 86 FL (80-99); MEAN PLATELET VOLUME 9.2 FL (7.4-10.4); MONOCYTES # (AUTO) 1.1 X 10^3 (0.0-1.0); MONOCYTES % (AUTO) 8 % (0-12); NEUTROPHILS # (AUTO) 9.4 X 10^3 (1.8-7.8); NEUTROPHILS % (AUTO) 73 % (42-75); PLATELET COUNT 283 10^3/uL (130-400); RED BLOOD COUNT 3.21 10^6/uL (4.35-5.85); RED CELL DISTRIBUTION WIDTH 16.2 % (10.0-14.5); WHITE BLOOD COUNT 12.8 10^3/uL (4.3-11.0)
[2016-05-22 13:26] LABS: ABG BASE EXCESS 0.1 MMOL/L (-2.5-2.5); ABG HCO3 30 MMOL/L (23-27); ABG OXYGEN SATURATION 83 % (94-100); ABG PO2 54 MMHG (79-93); ABG TCO2 32.2 MMOL/L (21.0-31.0)
[2016-05-22 13:32] LABS: BILIRUBIN,URINE NEGATIVE (NEGATIVE); KETONES,URINE NEGATIVE (NEGATIVE); LEUKOCYTE ESTERASE ,URINE 1+ (NEGATIVE); NITRITE,URINE NEGATIVE (NEGATIVE); PH,URINE 5 (5-9); PROTEIN,URINE 4+ (NEGATIVE); UROBILINOGEN,URINE NORMAL (NORMAL)
[2016-05-22 13:33] LABS: ABG PH 7.16 (7.37-7.43)
[2016-05-22 13:34] LABS: ABG PCO2 84 MMHG (35-45); ALLENS TEST YES-POS
[2016-05-22 13:35] LABS: PATIENT TEMP 98.7
[2016-05-22] MEDS ORDERED: SODIUM CHLORIDE (ADD-VANTAGE) 100 ML IV ONE (13:41)
[2016-05-22] MEDS ORDERED: DILTIAZEM 100 MG/VIAL (CARDIZEM) ADD-VANTAGE IV ONE (13:41)
[2016-05-22 13:44] LABS: ALANINE AMINOTRANSFERASE 9 U/L (0-55); ALBUMIN 2.9 G/DL (3.2-4.5); AMYLASE 56 U/L (25-125); ANION GAP 9 MMOL/L (5-14); ASPARTATE AMINO TRANSFERASE 25 U/L (5-34); BILIRUBIN,TOTAL 0.3 MG/DL (0.1-1.0); BLOOD UREA NITROGEN 36 MG/DL (7-18); BUN/CREATININE RATIO 14; CALCIUM 7.6 MG/DL (8.5-10.1); CARBON DIOXIDE 22 MMOL/L (21-32); CHLORIDE 106 MMOL/L (98-107); CREATINE KINASE 9 U/L (29-168); CREATININE SERUM 2.63 MG/DL (0.60-1.30); GFR ESTIMATED 17; GLUCOSE 112 MG/DL (70-105); LIPASE 22 U/L (8-78); MAGNESIUM 2.3 MG/DL (1.8-2.4); SODIUM 137 MMOL/L (135-145); TOTAL PROTEIN 5.8 G/DL (6.4-8.2)
[2016-05-22 13:45] LABS: INR 1.1 (0.8-1.4); PROTHROMBIN TIME PATIENT 13.4 SEC (12.2-14.7)
[2016-05-22 13:50] LABS: POTASSIUM 5.1 MMOL/L (3.6-5.0)
[2016-05-22 13:53] LABS: SQUAMOUS EPITHELIAL CELL,UR 0-2 /HPF
--- NOTE | 2016-05-22 13:56 | Diagnostic Imaging Report ---
INDICATION: Chest pain. EXAMINATION: Portable chest at 1:42 PM. FINDINGS: The heart size and pulmonary vascularity are normal. There is an infiltrate present in the right midlung. There is some possible left basilar atelectasis. IMPRESSION: Alveolar infiltrate in the right midlung, suspicious for pneumonia. Dictated by: Dictated on workstation # [id number]
[2016-05-22] MEDS ORDERED: DILTIAZEM DRIP 100 MG in SODIUM CHLORIDE (ADD-VANTAGE) 100 ML IV SCH (14:00)
[2016-05-22 14:03] LABS: TROPONIN I < 0.30 NG/ML (<0.30)
[2016-05-22] MEDS ORDERED: ENOXAPARIN 100 MG/1 ML (LOVENOX) SYR SC ONE (14:15)
[2016-05-22] MEDS ORDERED: cefTRIAXone INJECTION 1,000 MG in NORMAL SALINE (BAXTER MINI) 50 ML IV ONE (14:15)
[2016-05-22 15:45] VITALS: BP 134/54
[2016-05-22 16:00] VITALS: BP 134/54
[2016-05-22] MEDS ORDERED: RT-ALBUTEROL/IPRATROPIUM 3 ML (DUONEB) VIAL INH PRN (16:00)
[2016-05-22] MEDS ORDERED: DILTIAZEM DRIP 100 MG/NS 100 ML IV SCH ×2 (16:00)
[2016-05-22] MEDS ORDERED: PANTOPRAZOLE 40 MG/10 ML (PROTONIX) VIAL IV SCH (16:00)
[2016-05-22] MEDS ORDERED: CATHETER FLUSH 10 ML SYR IV PRN ×2 (16:00→16:30)
[2016-05-22] MEDS ORDERED: CEFEPIME 2 GM/NS 50 ML IVPB IV SCH ×2 (16:00)
[2016-05-22] MEDS ORDERED: VANCOMYCIN 1500 MG/NS 500 ML IVPB IV NR ×2 (16:15)
[2016-05-22 16:45] VITALS: BP 126/51
[2016-05-22] MEDS ORDERED: ATROPINE INJECTION 1 MG/10 ML SYR (ABBOTT) ONE (16:57)
[2016-05-22] MEDS ORDERED: ATROPINE INJ 0.4 MG/ML SDV ONE (16:57)
--- NOTE | 2016-05-22 17:33 | Consultation-Cardiology ---
HPI-Cardiology Cardiology Consultation: Date of Consultation 05/22/16 Date of Admission 05/22/18 Attending Physician Fritz Aguilar DO Admitting Physician Fritz Aguilar DO Consulting Physician MARNI CANO MD, FACP, FACC, [facility] [place] HPI: Chief Complaint: Reason for consultation: Bradycardia 89 yo woman with rapidly deteriorating health status over the last several weeks and multiple hosp admissions who has been admitted with ac resp failure, marked hypoxemia and unresponsiveness. This is being managed by the [facility] [place]. She also has a history or PAF. At presentation, she is reported to have a rapid heart rate for which iv dilt was started but the heart rate dropped and has remained low despite d/c iv dilt. She is unresponsive and unable to provide history. Family reports recent symptoms of malaise and weakness and shortness of breath and generally deteriorating health status Review of Systems-Cardiology Review of Systems Constitutional: other (A review of system cannot be obtained due to reasons noted in HPI) LGN-Xsbset-Yqnvgm Hx Patient Social History Alcohol Use: Denies Use Recreational Drug Use: No Smoking Status: Never a Smoker Former smoker/When Quit: Apr 28, 2004 Recent Foreign Travel: No Recent Infectious Disease Expo: No Hospitalization with Isolation: Denies Physical Abuse Screen: No Sexual Abuse: No Immunizations Up To Date Tetanus Booster (TDap): Unknown Date of Pneumonia Vaccine: Dec 28, 2007 Date of Influenza Vaccine: Mar 19, 2016 Past Medical History PMH As described under Assessment. Family Medical History Family History: FH: CVA (cerebrovascular accident) 19 MOTHER G8 SISTER Allergies and Home Medications Allergies Coded Allergies: No Known Drug Allergies (Unverified , 04/07/10) Home Medications Albuterol Sulfate 18 Gm Hfa.aer.ad 2 PUFF IH TID PRN PRN SHORTNESS OF BREATH ( Reported) Albuterol Sulfate 2.5 Mg/3 Ml Vial.neb 2.5 MG IH TID PRN PRN SHORTNESS OF BREATH (Reported) Alprazolam 0.25 Mg Tablet 0.25 MG PO BID PRN PRN ANXIETY (Reported) Amlodipine Besylate 10 Mg Tablet 10 MG PO DAILY (Reported) Apixaban 2.5 Mg Tablet 2.5 MG PO BID (Reported) Furosemide 40 Mg Tablet 40 MG PO DAILY PRN PRN FLUID RETENTION (Reported) ONLY TAKES IS SHE HAS A WEIGHT GAIN OF 3 POUNDS. Loratadine 10 Mg Tablet 10 MG PO DAILY (Reported) Omeprazole 40 Mg Capsule.dr 40 MG PO DAILY (Reported) LAST FILLED 11/07/15 #90 Simvastatin 40 Mg Tablet 40 MG PO HS (Reported) Tramadol HCl 50 Mg Tablet 50 MG PO BID (Reported) Trazodone HCl 50 Mg Tablet 50 MG PO HS (Reported) Physical Exam-Cardiology Physical Exam Vital Signs/I&O Vital Sign - Last 12Hours 05/22/16 05/22/16 05/22/16 05/22/16 12:50 12:50 13:55 13:55 Temp 98.7 Pulse 139 107 107 Resp 36 13 13 B/P 147/56 179/71 179/71 Pulse Ox 48 99 89 O2 Delivery Nasal Cannula Bi-pap O2 Flow Rate 2 05/22/16 05/22/16 05/22/16 15:30 16:00 16:00 Pulse 97 98 92 Resp 13 16 14 B/P 125/52 Pulse Ox 95 99 98 O2 Delivery NIV/Bilevel O2 Flow Rate 100.00 FiO2 100 Capillary Refill : Less Than 3 Seconds Constitutional: other (unreponsive) HEENT: other (pupils round; hearing cannot be determined; on BiPAP mask) Neck: other (no distinct JVP elevation) Respiratory: other (Fair to good air entry; decreased bs at bases) Cardiovascular: other (bradycardic, S1 and S2, faint FABIEN at cadiac base) Gastrointestinal: other (soft, tenderness cannot be determined, audible bowel sounds) Extremities: No clubbing, No cyanosis Neurologic/Psychiatric: other (unresponsive) Data Review Labs Laboratory Tests 05/22/16 13:05: Marco Test YES-POS, Arterial Blood Base Excess 0.1, Arterial Blood HCO3 30H, Arterial Blood Oxygen Saturation 83L, Arterial Blood Partial Pressure CO2 84*H, Arterial Blood Partial Pressure O2 54L, Arterial Blood Total CO2 32.2H, Arterial Blood pH 7.16*L, Blood Gas Inspired Oxygen 90%, Blood Gas Patient Temperature 98.7, Blood Gas Puncture Site RT RADIAL, Blood Gas Ventilator Setting NO 05/22/16 13:13: Activated Partial Thromboplast Time 23L, Alanine Aminotransferase (ALT/SGPT) 9, Albumin 2.9L, Alkaline Phosphatase 50, Amylase Level 56, Anion Gap 9, Aspartate Amino Transf (AST/SGOT) 25, B-Type Natriuretic Peptide 223.1H, BUN/Creatinine Ratio 14, Basophils # (Auto) 0.0, Basophils (%) (Auto) 0, Blood Urea Nitrogen 36H, Calcium Level 7.6L, Carbon Dioxide Level 22, Chloride Level 106, Creatine Kinase MB 1.0, Creatinine 2.63H, Eosinophils # (Auto) 0.0, Eosinophils (%) (Auto ) 0, Estimat Glomerular Filtration Rate 17, Glucose Level 112H, Hematocrit 28L, Hemoglobin 8.4L, INR Comment 1.1, Lactic Acid Level 0.6, Lipase 22, Lymphocytes # (Auto) 2.3, Lymphocytes (%) (Auto) 18, Magnesium Level 2.3, Mean Corpuscular Hemoglobin 26, Mean Corpuscular Hemoglobin Concent 30L, Mean Corpuscular Volume 86, Mean Platelet Volume 9.2, Monocytes # (Auto) 1.1H, Monocytes (%) (Auto) 8, Neutrophils # (Auto) 9.4H, Neutrophils (%) (Auto) 73, Platelet Count 283, Potassium Level 5.1H, Prothrombin Time 13.4, Red Blood Count 3.21L, Red Cell Distribution Width 16.2H, Sodium Level 137, TSH [place] Testing 1.31, Total Bilirubin 0.3, Total Creatine Kinase 9L, Total Protein 5.8L, Troponin I < 0.30, White Blood Count 12.8H 05/22/16 13:23: Urine Amorphous Sediment FEW KELLY URATESH, Urine Bacteria NEGATIVE, Urine Bilirubin NEGATIVE, Urine Casts PRESENT, Urine Clarity CLEAR, Urine Color AMBERH , Urine Crystals PRESENTH, Urine Culture Indicated NO, Urine Glucose (UA) NEGATIVE, Urine Hyaline Casts 5-10H, Urine Ketones NEGATIVE, Urine Leukocyte Esterase 1+H, Urine Mucus NEGATIVE, Urine Nitrite NEGATIVE, Urine Protein 4+, Urine RBC NONE, Urine RBC (Auto) NEGATIVE, Urine Specific [place] 1.025H, Urine Squamous Epithelial Cells 0-2, Urine Urobilinogen NORMAL, Urine WBC 2-5, Urine pH 5 Microbiology 05/22/16 Influenza Types A,B Antigen (KANNAN) - Final, Complete A/P-Cardiology Assessment/Admission Diagnosis Multiorgan failure (see below) Acute resp failure, multifactorial Pneumonia Pulmonary hypertension (RHC of 10/24/11 showed mean PASP 33 mmHg, PVR 4.5 Wood units, and PWP 15 mmHg. Echo of September 2015 showed PASP 50-55 mmHg) PAF with tachycardia-bradycardia syndrome (currently marked bradycardia) Acute on chronic renal failure Marked anemia H/o GI bleeding Chronic apixaban anticoag anticoag, but with poor INR control (marked variation) . Currently off warfarin and tolerating Eliquis well H/o hypertension H/o hyperlipidemia Mild carotid art disease on carotid u/s of 03/04/14 H/o TOMER, but she has had intolerance to CPAP Tobaccoism, refraining since the No angiographically significant CAD on card cath of October 2009; LVEF was 60% Chronic bilateral leg swelling due to venous incompetence CKD stage 4 Echo of October 13, 2015 showed normal LV systolic function with and LVEF of approx 60%. Mild concentric LVH. Mild mitral annular calciication and arotic valve sclerosis without significant valvular stenosis. Mod MR , TR and AoR Discussion and Recomendations * She has multiorgan system involvement and prognosis is poor * I had a detailed discussion with her family. The patient has desired DNR/DNI status. The family concur. Accordingly, treatment plan is that of comfort care MARNI CANO MD FACP FACC CCDS May 22, 2016 17:33
[2016-05-22 17:55] VITALS: BP 104/30
[2016-05-22] MEDS ORDERED: LEVOFLOXACIN 750 MG/D5W 150 ML PRE-MIX IV NR (18:00)
[2016-05-22] MEDS ORDERED: RT-ALBUTEROL/IPRATROPIUM 3 ML (DUONEB) VIAL INH SCH (18:00)
[2016-05-22 18:10] VITALS: BP 96/34
--- NOTE | 2016-05-22 18:31 | History & Physicial ---
History of Present Illness History of Present Illness Reason for visit/HPI spoke to 4 children about there mother.. Patient had nausea and vomiting all night long. Patient called EMS. Patient in hospital was in atrial flutter A. fib with RVR and pulse ox was in the 50s. Patient at this time is unresponsive. Patient put in intensive care unit. Patient had asystole for a while and now has a slow heart rate. Explained to family the patient appears terminal. Children wants to wait to the other children,, before they take her off the BiPAP. They just want her to be on the BiPAP. Patient is DO NOT RESUSCITATE and DO NOT INTUBATE. Patient nonresponsive to pain and and coma. Patient renal failure. Patient previously at [facility] recently Date of Admission May 22, 2016 at 14:32 I consulted on this patient on 05/22/16 18:25 Attending Physician Fritz oLpez DO Admitting Physician Fritz Lopez DO Consult Allergies and Home Medications Allergies Coded Allergies: No Known Drug Allergies (Unverified , 04/07/10) Home Medications Albuterol Sulfate 18 Gm Hfa.aer.ad 2 PUFF IH TID PRN PRN SHORTNESS OF BREATH ( Reported) Albuterol Sulfate 2.5 Mg/3 Ml Vial.neb 2.5 MG IH TID PRN PRN SHORTNESS OF BREATH (Reported) Alprazolam 0.25 Mg Tablet 0.25 MG PO BID PRN PRN ANXIETY (Reported) Amlodipine Besylate 10 Mg Tablet 10 MG PO DAILY (Reported) Apixaban 2.5 Mg Tablet 2.5 MG PO BID (Reported) Furosemide 40 Mg Tablet 40 MG PO DAILY PRN PRN FLUID RETENTION (Reported) ONLY TAKES IS SHE HAS A WEIGHT GAIN OF 3 POUNDS. Loratadine 10 Mg Tablet 10 MG PO DAILY (Reported) Omeprazole 40 Mg Capsule.dr 40 MG PO DAILY (Reported) LAST FILLED 11/07/15 #90 Simvastatin 40 Mg Tablet 40 MG PO HS (Reported) Tramadol HCl 50 Mg Tablet 50 MG PO BID (Reported) Trazodone HCl 50 Mg Tablet 50 MG PO HS (Reported) Past Sjptxcj-Rgtior-Whpvne Hx Patient Social History Alcohol Use: Denies Use Recreational Drug Use: No Smoking Status: Never a Smoker Former smoker/When Quit: Apr 28, 2004 Physical Abuse Screen: No Sexual Abuse: No Recent Foreign Travel: No Contact w/other who traveled: No Recent Hopitalizations: Yes (RENAL FAILURE, CHF) Recent Infectious Disease Expo: No Immunizations Up To Date Tetanus Booster (TDap): Unknown Date of Pneumonia Vaccine: Dec 28, 2007 Date of Influenza Vaccine: Mar 19, 2016 Seasonal Allergies Seasonal Allergies: Yes Surgeries HX Surgeries: Yes (RIGHT TOTAL HIP REPLACEMENT) Surgeries: Hysterectomy, Joint Replacement, Orthopedic Respiratory Hx Respiratory Disorders: Yes Respiratory Disorders: COPD Cardiovascular Hx Cardiovascular Disorders: Yes Cardiac Disorders: Atrial Fibrillation, Chronic Edema/Swelling, Coronary Artery Disease, High Cholesterol, Hypertension Neurological Hx Neurological Disorders: Yes Neurological Disorders: Dementia Reproductive System Hx Reproductive Disorders: Yes (CERVICAL CANCER WITH HYSTERECTOMY) Sexually Transmitted Disease: No Genitourinary Hx Genitourinary Disorders: Yes (URINARY RETENTION) Gastrointestinal Hx Gastrointestinal Disorders: No Musculoskeletal Hx Musculoskeletal Disorders: Yes (RIGHT TOTAL HIP, OSTEOARTHRITIS) Musculoskeletal Disorders: Arthritis Endocrine Hx Endocrine Disorders: No HEENT HX ENT Disorders: No Cancer Hx Cancer: Yes Cancer: Cervical Psychosocial Hx Psychiatric Problems: Yes Behavioral Health Disorders: Anxiety, Depression Integumentary HX Skin/Integumentary Disorder: No Blood Transfusions Hx Blood Disorders: Yes (Anemia) Family Medical History Significant Family History: No Pertinent Family Hx Family Hx: FH: CVA (cerebrovascular accident) 19 MOTHER G8 SISTER Constitutional: other (nonresponsive on BiPAP) Respiratory: other (x-ray shows pneumonia) Cardiovascular: other (A. fib with RVR. Next asystole.) Gastrointestinal: nausea vomiting Physical Exam Vital Signs Vital Sign - Last 12Hours 05/22/16 16:00 FiO2 100 Capillary Refill : Less Than 3 Seconds General Appearance: Other Assessment/Plan Assessment and Plan Spoke to children. Patient nonresponsive and does not react to pain. A. fib with RVR. Asystole. Pneumonia. Nausea and vomiting. Kidney failure. Nonresponsive. Coma. DO NOT RESUSCITATE and DO NOT INTUBATE. Children do not want anything done except the BiPAP FRITZ LOPEZ DO May 22, 2016 18:31
[2016-05-22 18:42] VITALS: BP 96/25
[2016-05-22] MEDS ORDERED: CATHETER FLUSH 10 ML SYR IV SCH ×2 (22:00)
[2016-05-23] MEDS ORDERED: ENOXAPARIN 100 MG/1 ML (LOVENOX) SYR SC SCH (14:00)
--- NOTE | 2016-05-24 07:21 | Clinic Account Progress/Dx ---
Clinic Account Progress/Dx DIAGNOSIS: Diagnosis acute respiratory failure with hypoxia. Cardiac arrest. Renal failure. Pneumonia. Pulmonary hypertension. Proximal atrial fibrillation. DO NOT RESUSCITATE. Anemia. Hyperlipidemia. Sleep apnea. History of nicotine dependence. Coronary artery disease. Hyperlipidemia. WILLARD LOPEZ DO May 24, 2016 07:21
--- NOTE | 2016-05-24 07:25 | Discharge Summary ---
Diagnosis/Chief Complaint Date of Admission May 22, 2016 at 14:32 Date of Discharge May 22, 2016 at 22:05 Admission Diagnosis Admission Diagnosis Spoke to children. Patient nonresponsive and does not react to pain. A. fib with RVR. Asystole. Pneumonia. Nausea and vomiting. Kidney failure. Nonresponsive. Coma. DO NOT RESUSCITATE and DO NOT INTUBATE. Children do not want anything done except the BiPAP Discharge Diagnosis acute respiratory failure. Cardiac arrest. Renal failure. Pneumonia. Proximal atrial fibrillation. Hypertension. DO NOT RESUSCITATE. Anemia. Hyperlipidemia. Sleep apnea. Coronary artery disease. multiorgan failure Reason Hospital Visit spoke to 4 children about there mother.. Patient had nausea and vomiting all night long. Patient called EMS. Patient in hospital was in atrial flutter A. fib with RVR and pulse ox was in the 50s. Patient at this time is unresponsive. Patient put in intensive care unit. Patient had asystole for a while and now has a slow heart rate. Explained to family the patient appears terminal. Children wants to wait to the other children,, before they take her off the BiPAP. They just want her to be on the BiPAP. Patient is DO NOT RESUSCITATE and DO NOT INTUBATE. Patient nonresponsive to pain and and coma. Patient renal failure. Patient previously at [facility] recently Discharge Summary Consultations cardiology. Discharge Physical Examination Allergies: Coded Allergies: No Known Drug Allergies (Unverified , 04/07/10) Vitals & I&Os Vital Signs Date Time Temp Pulse Resp B/P Pulse Ox O2 Delivery O2 Flow Rate FiO2 05/22/16 20:00 NIV/Bilevel 100 05/22/16 19:39 100.00 05/22/16 19:00 33 05/22/16 18:42 14 100 05/22/16 12:50 98.7 Hospital Course spoke to family. Patient terminal. Patient's family don't want anything done except BiPAP. Patient Labs (last 24 hrs) Laboratory Tests 05/22/16 13:05: Marco Test YES-POS, Arterial Blood Base Excess 0.1, Arterial Blood HCO3 30H, Arterial Blood Oxygen Saturation 83L, Arterial Blood Partial Pressure CO2 84*H, Arterial Blood Partial Pressure O2 54L, Arterial Blood Total CO2 32.2H, Arterial Blood pH 7.16*L, Blood Gas Inspired Oxygen 90%, Blood Gas Patient Temperature 98.7, Blood Gas Puncture Site RT RADIAL, Blood Gas Ventilator Setting NO 05/22/16 13:13: Activated Partial Thromboplast Time 23L, Alanine Aminotransferase (ALT/SGPT) 9, Albumin 2.9L, Alkaline Phosphatase 50, Amylase Level 56, Anion Gap 9, Aspartate Amino Transf (AST/SGOT) 25, B-Type Natriuretic Peptide 223.1H, BUN/Creatinine Ratio 14, Basophils # (Auto) 0.0, Basophils (%) (Auto) 0, Blood Urea Nitrogen 36H, Calcium Level 7.6L, Carbon Dioxide Level 22, Chloride Level 106, Creatine Kinase MB 1.0, Creatinine 2.63H, Eosinophils # (Auto) 0.0, Eosinophils (%) (Auto ) 0, Estimat Glomerular Filtration Rate 17, Glucose Level 112H, Hematocrit 28L, Hemoglobin 8.4L, INR Comment 1.1, Lactic Acid Level 0.6, Lipase 22, Lymphocytes # (Auto) 2.3, Lymphocytes (%) (Auto) 18, Magnesium Level 2.3, Mean Corpuscular Hemoglobin 26, Mean Corpuscular Hemoglobin Concent 30L, Mean Corpuscular Volume 86, Mean Platelet Volume 9.2, Monocytes # (Auto) 1.1H, Monocytes (%) (Auto) 8, Neutrophils # (Auto) 9.4H, Neutrophils (%) (Auto) 73, Platelet Count 283, Potassium Level 5.1H, Prothrombin Time 13.4, Red Blood Count 3.21L, Red Cell Distribution Width 16.2H, Sodium Level 137, TSH [place] Testing 1.31, Total Bilirubin 0.3, Total Creatine Kinase 9L, Total Protein 5.8L, Troponin I < 0.30, White Blood Count 12.8H 05/22/16 13:23: Urine Amorphous Sediment FEW KELLY URATESH, Urine Bacteria NEGATIVE, Urine Bilirubin NEGATIVE, Urine Casts PRESENT, Urine Clarity CLEAR, Urine Color AMBERH , Urine Crystals PRESENTH, Urine Culture Indicated NO, Urine Glucose (UA) NEGATIVE, Urine Hyaline Casts 5-10H, Urine Ketones NEGATIVE, Urine Leukocyte Esterase 1+H, Urine Mucus NEGATIVE, Urine Nitrite NEGATIVE, Urine Protein 4+, Urine RBC NONE, Urine RBC (Auto) NEGATIVE, Urine Specific [place] 1.025H, Urine Squamous Epithelial Cells 0-2, Urine Urobilinogen NORMAL, Urine WBC 2-5, Urine pH 5 Microbiology 05/22/16 Blood Culture - Preliminary, Resulted No growth 05/22/16 Influenza Types A,B Antigen (KANNAN) - Final, Complete Laboratory Tests 05/22/16 13:13 Pending Labs Microbiology Date/Time Source Procedure Growth Status 05/22/16 14:49 Peripheral Rt Ac Blood Culture - Preliminary No growth Resulted 05/22/16 13:13 Peripheral Lt Ac Blood Culture - Preliminary No growth Resulted 05/22/16 14:05 Nasopharynx Influenza Types A,B Antigen (KANNAN) - Final Complete Laboratory Tests 05/22/16 13:05: Marco Test YES-POS, Arterial Blood Base Excess 0.1, Arterial Blood HCO3 30, Arterial Blood Oxygen Saturation 83, Arterial Blood Partial Pressure CO2 84, Arterial Blood Partial Pressure O2 54, Arterial Blood Total CO2 32.2, Arterial Blood pH 7.16, Blood Gas Inspired Oxygen 90%, Blood Gas Patient Temperature 98.7 , Blood Gas Puncture Site RT RADIAL, Blood Gas Ventilator Setting NO 05/22/16 13:13: Activated Partial Thromboplast Time 23, Alanine Aminotransferase (ALT/SGPT) 9, Albumin 2.9, Alkaline Phosphatase 50, Amylase Level 56, Anion Gap 9, Aspartate Amino Transf (AST/SGOT) 25, B-Type Natriuretic Peptide 223.1, BUN/Creatinine Ratio 14, Basophils # (Auto) 0.0, Basophils (%) (Auto) 0, Blood Urea Nitrogen 36 , Calcium Level 7.6, Carbon Dioxide Level 22, Chloride Level 106, Creatine Kinase MB 1.0, Creatinine 2.63, Eosinophils # (Auto) 0.0, Eosinophils (%) (Auto ) 0, Estimat Glomerular Filtration Rate 17, Glucose Level 112, Hematocrit 28, Hemoglobin 8.4, INR Comment 1.1, Lactic Acid Level 0.6, Lipase 22, Lymphocytes # (Auto) 2.3, Lymphocytes (%) (Auto) 18, Magnesium Level 2.3, Mean Corpuscular Hemoglobin 26, Mean Corpuscular Hemoglobin Concent 30, Mean Corpuscular Volume 86, Mean Platelet Volume 9.2, Monocytes # (Auto) 1.1, Monocytes (%) (Auto) 8, Neutrophils # (Auto) 9.4, Neutrophils (%) (Auto) 73, Platelet Count 283, Potassium Level 5.1, Prothrombin Time 13.4, Red Blood Count 3.21, Red Cell Distribution Width 16.2, Sodium Level 137, TSH [place] Testing 1.31, Total Bilirubin 0.3, Total Creatine Kinase 9, Total Protein 5.8, Troponin I < 0.30, White Blood Count 12.8 05/22/16 13:23: Urine Amorphous Sediment FEW KELLY URATES, Urine Bacteria NEGATIVE, Urine Bilirubin NEGATIVE, Urine Casts PRESENT, Urine Clarity CLEAR, Urine Color CHANI , Urine Crystals PRESENT, Urine Culture Indicated NO, Urine Glucose (UA) NEGATIVE, Urine Hyaline Casts 5-10, Urine Ketones NEGATIVE, Urine Leukocyte Esterase 1+, Urine Mucus NEGATIVE, Urine Nitrite NEGATIVE, Urine Protein 4+, Urine RBC NONE, Urine RBC (Auto) NEGATIVE, Urine Specific [place] 1.025, Urine Squamous Epithelial Cells 0-2, Urine Urobilinogen NORMAL, Urine WBC 2-5, Urine pH 5 Discussion & Recommendations patient . Patient had multiorgan failure. Discharge Home Medications: Active Scripts Active Reported Albuterol Sulfate 2.5 Mg/3 Ml Vial.neb 2.5 Mg IH TID PRN Ventolin Hfa (Albuterol Sulfate) 18 Gm Hfa.aer.ad 2 Puff IH TID PRN Alprazolam 0.25 Mg Tablet 0.25 Mg PO BID PRN Tramadol HCl 50 Mg Tablet 50 Mg PO BID Eliquis (Apixaban) 2.5 Mg Tablet 2.5 Mg PO BID Omeprazole 40 Mg Capsule.dr 40 Mg PO DAILY LAST FILLED 11/07/15 #90 Amlodipine Besylate 10 Mg Tablet 10 Mg PO DAILY Trazodone HCl 50 Mg Tablet 50 Mg PO HS Loratadine 10 Mg Tablet 10 Mg PO DAILY Simvastatin 40 Mg Tablet 40 Mg PO HS Furosemide 40 Mg Tablet 40 Mg PO DAILY PRN ONLY TAKES IS SHE HAS A WEIGHT GAIN OF 3 POUNDS. Instructions to patient/family Please see electonic discharge instructions given to patient. Clinical Quality Measures DVT/VTE Risk/Contraindication: Risk Factor Score Per Nursin RFS Level Per Nursing on Admit: 4+=Very High WILLARD LOPEZ DO May 24, 2016 07:25
[2016-05-24] MEDS ORDERED: TROUGH ORDER-PHARMACY XX NR (15:00)
[2016-05-24] MEDS ORDERED: VANCOMYCIN 1 GM/NS 250 ML IVPB IV SCH ×2 (16:00)
[2016-05-24] MEDS ORDERED: LEVOFLOXACIN 500 MG/D5W 100 ML (PRE-MIX) IV SCH (18:00)
== END 2016-05-22 22:05 | disposition expired | DRG 193 ==
LOC: EDUNIT# 12:47 → ER 12:48 → ICU 14:32 → 4TH 20:04 → ICU 20:30
PROVIDERS: ADMIT Family Medicine; ATTEND Family Medicine
DX: J18.9 Pneumonia, unspecified organism (principal); J96.01 Acute respiratory failure with hypoxia; I46.9 Cardiac arrest, cause unspecified; I27.2 Other secondary pulmonary hypertension; I48.0 Paroxysmal atrial fibrillation; I12.9 Hypertensive chronic kidney disease with stage 1 through stage 4 chronic kidney disease, or unspecified chronic kidney disease; N18.4 Chronic kidney disease, stage 4 (severe); N17.9 Acute kidney failure, unspecified; Z66 Do not resuscitate; Z51.5 Encounter for palliative care; D64.9 Anemia, unspecified; E78.5 Hyperlipidemia, unspecified; I65.29 Occlusion and stenosis of unspecified carotid artery; G47.33 Obstructive sleep apnea (adult) (pediatric); Z87.891 Personal history of nicotine dependence; R60.0 Localized edema; I25.10 Atherosclerotic heart disease of native coronary artery without angina pectoris; E78.00 Pure hypercholesterolemia, unspecified; F32.9 Major depressive disorder, single episode, unspecified; F41.9 Anxiety disorder, unspecified; Z85.41 Personal history of malignant neoplasm of cervix uteri
CPT/HCPCS: 36415; 51702; 71010; 80053; 81000; 82150; 82550; 82553; 82805; 83605; 83690; 83735; 83880; 84443; 84484; 85025; 85610; 85730; 87040; 87804; 93005; 93041; 94660; 96365; 96366; 96372; 96375